=== PATIENT | male | born 1955 | race African-American/Black ===

== ENCOUNTER 2019-10-13 17:49 | Inpatient (IN) | payer MEDICARE, BC ==
[2019-10-13] MEDS ORDERED: ACETAMINOPHEN TAB 500 MG TAB PO STA (18:18)
[2019-10-13] MEDS ORDERED: ONDANSETRON 4 MG/2 ML VIAL IVP STA (18:19)
[2019-10-13] MEDS ORDERED: HYDROmorphone 1 MG/ML 1 ML SYRINGE IVP STA ×3 (18:19→21:06)
--- NOTE | 2019-10-13 18:21 | ED ---
General Adult HPI - General Chief complaint: Nausea/Vomiting/Diarrhea Stated complaint: nausea Time Seen by Provider: 10/13/19 18:09 Source: patient Mode of arrival: ambulatory Limitations: no limitations - History of Present Illness Initial comments: 64-year-old male patient presents to the emergency department today for evaluation of upper abdominal pain and vomiting. Patient states symptoms started last night. States he has had several episodes of diarrhea with this. He denies any hematochezia, melena, hematemesis. Patient states he has been c hilled. He did have fever in triage. Patient denies any pain radiating through to his back. Denies any history of similar symptoms. Denies any history of abdominal surgery. He denies recent travel or sick contacts. Denies any cough, nasal congestion, or sore throat. Patient denies any recent rash, shortness breath, chest pain, numbness, tingling, dizziness, weakness, hematuria, dysuria, urinary urgency, urinary frequency, headache, visual changes, or any other complaints. - Related Data Home Medications Medication Instructions Recorded Confirmed Atenolol [Tenormin] 25 mg PO DAILY 02/02/16 10/13/19 fentaNYL 100MCG/HR PATCH 100 mcg TRANSDERM Q48H 02/02/16 10/13/19 [Duragesic 100Mcg/Hr Patch] oxyCODONE HCL [oxyCODONE HCL (IR)] 30 mg PO Q4H PRN 02/02/16 10/13/19 traMADol HCl [Ultram] 50 mg PO Q6H PRN 02/02/16 10/13/19 Finasteride [Proscar] 5 mg PO DAILY 10/13/19 10/13/19 Hydrochlorothiazide [Hydrodiuril] 25 mg PO DAILY 10/13/19 10/13/19 Sildenafil Citrate 100 mg PO ONCE PRN 10/13/19 10/13/19 Testosterone [Androgel 1% Gel Pump] 2 applic TOPICAL DAILY 10/13/19 10/13/19 Allergies Allergy/AdvReac Type Severity Reaction Status Date / Time shellfish derived [Shellfish] Allergy Rash/Hives Verified 10/13/19 19:59 Review of Systems ROS Statement: Those systems with pertinent positive or pertinent negative responses have been documented in the HPI. ROS Other: All systems not noted in ROS Statement are negative. Past Medical History Past Medical History: Hypertension, Prostate Disorder Additional Past Medical History / Comment(s): lower back pain radiating to rt leg History of Any Multi-Drug Resistant Organisms: None Reported Past Surgical History: Back Surgery, Joint Replacement, Orthopedic Surgery Additional Past Surgical History / Comment(s): walt. knee replacement, walt knee s quan, walt. carpal tunnel. Hx. of having spinal cord stimulator trial approx. 3 years ago Past Anesthesia/Blood Transfusion Reactions: No Reported Reaction Smoking Status: Never smoker Past Alcohol Use History: None Reported Past Drug Use History: None Reported - Past Family History Mother Family Medical History: No Reported History General Exam Limitations: no limitations General appearance: alert, in no apparent distress, other (This is a well- developed, well-nourished adult male patient in no acute distress. Vital signs upon presentation are temperature 101.9F, pulse 122, respirations 26, blood pressure 166/81, pulse ox 96% on room air.) Eye exam: Present: normal appearance, PERRL, EOMI. Absent: scleral icterus, conjunctival injection, periorbital swelling ENT exam: Present: normal exam, normal oropharynx, mucous membranes moist Respiratory exam: Present: normal lung sounds bilaterally. Absent: respiratory distress, wheezes, rales, rhonchi, stridor Cardiovascular Exam: Present: normal rhythm, tachycardia, normal heart sounds. Absent: systolic murmur, diastolic murmur, rubs, gallop, clicks GI/Abdominal exam: Present: soft, tenderness (Right upper quadrant tenderness), normal bowel sounds. Absent: distended, guarding, rebound, rigid Neurological exam: Present: alert, oriented X3, CN II-XII intact Psychiatric exam: Present: normal affect, normal mood Skin exam: Present: warm, dry, intact, normal color. Absent: rash Course Vital Signs 10/13/19 10/13/19 10/13/19 18:05 20:13 21:09 Temperature 101.9 F H 99.2 F Pulse Rate 122 H 103 H 114 H Respiratory 26 H 18 26 H Rate Blood Pressure 166/81 155/85 162/117 O2 Sat by Pulse 96 96 97 Oximetry 10/13/19 21:30 Temperature Pulse Rate 112 H Respiratory 26 H Rate Blood Pressure 157/86 O2 Sat by Pulse 96 Oximetry EKG Findings - EKG Comments: EKG Findings:: EKG obtained at 2000 shows sinus tachycardia with a ventricular rate of 103, OK interval 168, QRS duration 90, QT 338, QTC 442. No evidence of ST elevation or depression. Medical Decision Making - Medical Decision Making 64-year-old male patient presented to the emergency department today for evaluation of abdominal pain, fever, vomiting, diarrhea. Physical examination did reveal upper abdominal tenderness. Labs reviewed and did reveal a critical hemoglobin and 19, elevated white blood cell count at 12.5. Lactic acid was elevated at 2.6. Transaminases are normal. Patient was febrile upon arrival 101.1F. CT abdomen and pelvis was obtained and showed evidence for possible partial mechanical small bowel obstruction. There is a large fluid-filled stomach. We did attempt to insert an NG tube, patient pulled the NG tube out. He refused to allow another to be inserted. Patient will be admitted for further evaluation by general surgery. IV fluids, pain medication, nausea medication has been ordered. C. diff is pending. I did discuss findings, results, plan with the patient. He is agreeable. - Lab Data Result diagrams: 10/13/19 18:33 10/13/19 18:33 Lab Results 10/13/19 10/13/19 10/13/19 Range/Units 18:33 18:33 18:33 WBC 12.4 H (3.8-10.6) k/uL RBC 6.39 H (4.30-5.90) m/uL Hgb 19.2 H* (13.0-17.5) gm/dL Hct 57.9 H* (39.0-53.0) % MCV 90.6 (80.0-100.0) fL MCH 30.1 (25.0-35.0) pg MCHC 33.2 (31.0-37.0) g/dL RDW 13.0 (11.5-15.5) % Plt Count 285 (150-450) k/uL Neutrophils % 88 % Lymphocytes % 4 % Monocytes % 4 % Eosinophils % 2 % Basophils % 2 % Neutrophils # 10.9 H (1.3-7.7) k/uL Lymphocytes # 0.5 L (1.0-4.8) k/uL Monocytes # 0.5 (0-1.0) k/uL Eosinophils # 0.2 (0-0.7) k/uL Basophils # 0.2 (0-0.2) k/uL PT (9.0-12.0) sec INR (<1.2) APTT (22.0-30.0) sec Sodium 135 L (137-145) mmol/L Potassium 4.1 (3.5-5.1) mmol/L Chloride 89 L (98-107) mmol/L Carbon Dioxide 32 H (22-30) mmol/L Anion Gap 14 mmol/L BUN 16 (9-20) mg/dL Creatinine 1.18 (0.66-1.25) mg/dL Est GFR (CKD-EPI)AfAm 75 (>60 ml/min/1.73 sqM) Est GFR (CKD-EPI)NonAf 65 (>60 ml/min/1.73 sqM) Glucose 156 H (74-99) mg/dL Plasma Lactic Acid Sanjiv 2.6 H* (0.7-2.0) mmol/L Calcium 10.8 H (8.4-10.2) mg/dL Total Bilirubin 1.0 (0.2-1.3) mg/dL AST 35 (17-59) U/L ALT 28 (21-72) U/L Alkaline Phosphatase 76 (38-126) U/L Total Protein 9.4 H (6.3-8.2) g/dL Albumin 5.4 H (3.5-5.0) g/dL Lipase 261 (23-300) U/L Urine Color Urine Appearance (Clear) Urine pH (5.0-8.0) Ur Specific [place] (1.001-1.035) Urine Protein (Negative) Urine Glucose (UA) (Negative) Urine Ketones (Negative) Urine Blood (Negative) Urine Nitrite (Negative) Urine Bilirubin (Negative) Urine Urobilinogen (<2.0) mg/dL Ur Leukocyte Esterase (Negative) Urine RBC (0-5) /hpf Urine WBC (0-5) /hpf Ur Squamous Epith Cells (0-4) /hpf Urine Mucus (None) /hpf Influenza Type A RNA (Not Detectd) Influenza Type B (PCR) (Not Detectd) 10/13/19 10/13/19 10/13/19 Range/Units 18:33 19:09 20:00 WBC (3.8-10.6) k/uL RBC (4.30-5.90) m/uL Hgb (13.0-17.5) gm/dL Hct (39.0-53.0) % MCV (80.0-100.0) fL MCH (25.0-35.0) pg MCHC (31.0-37.0) g/dL RDW (11.5-15.5) % Plt Count (150-450) k/uL Neutrophils % % Lymphocytes % % Monocytes % % Eosinophils % % Basophils % % Neutrophils # (1.3-7.7) k/uL Lymphocytes # (1.0-4.8) k/uL Monocytes # (0-1.0) k/uL Eosinophils # (0-0.7) k/uL Basophils # (0-0.2) k/uL PT 11.2 (9.0-12.0) sec INR 1.1 (<1.2) APTT 25.3 (22.0-30.0) sec Sodium (137-145) mmol/L Potassium (3.5-5.1) mmol/L Chloride (98-107) mmol/L Carbon Dioxide (22-30) mmol/L Anion Gap mmol/L BUN (9-20) mg/dL Creatinine (0.66-1.25) mg/dL Est GFR (CKD-EPI)AfAm (>60 ml/min/1.73 sqM) Est GFR (CKD-EPI)NonAf (>60 ml/min/1.73 sqM) Glucose (74-99) mg/dL Plasma Lactic Acid Sanjiv (0.7-2.0) mmol/L Calcium (8.4-10.2) mg/dL Total Bilirubin (0.2-1.3) mg/dL AST (17-59) U/L ALT (21-72) U/L Alkaline Phosphatase (38-126) U/L Total Protein (6.3-8.2) g/dL Albumin (3.5-5.0) g/dL Lipase (23-300) U/L Urine Color Yellow Urine Appearance Clear (Clear) Urine pH 8.0 (5.0-8.0) Ur Specific [place] >1.050 H (1.001-1.035) Urine Protein 1+ H (Negative) Urine Glucose (UA) Negative (Negative) Urine Ketones Negative (Negative) Urine Blood Negative (Negative) Urine Nitrite Negative (Negative) Urine Bilirubin Negative (Negative) Urine Urobilinogen <2.0 (<2.0) mg/dL Ur Leukocyte Esterase Negative (Negative) Urine RBC 1 (0-5) /hpf Urine WBC <1 (0-5) /hpf Ur Squamous Epith Cells <1 (0-4) /hpf Urine Mucus Rare H (None) /hpf Influenza Type A RNA Not Detected (Not Detectd) Influenza Type B (PCR) Not Detected (Not Detectd) - Radiology Data Radiology results: report reviewed, image reviewed CT abdomen and pelvis with contrast was obtained. Report is reviewed in its entirety. Impression by Dr. Davis shows dilated fluid-filled small bowel consistent with partial mechanical small bowel obstruction or small bowel ileus. No free air. Mildly dilated gallbladder suggestive of gallbladder dysfunction. Bariatric surgery noted. Sigmoid diverticulosis without divertic ulitis. There is noted a lipoma of the anterior right upper thigh between the deep muscles. Disposition Clinical Impression: Intractable abdominal pain, Vomiting and diarrhea Disposition: ADMITTED IP TO THIS [facility] Condition: Serious Decision to Admit Reason: Admit from EC Decision Date: 10/13/19 Decision Time: 21:42
[2019-10-13] MEDS: SODIUM CHLORIDE 0.9% 500 ML 500 ML IV SCH ×2 (18:33→19:04)
[2019-10-13 18:49] LABS: Basophils # (A) 0.2 k/uL (0-0.2); Basophils % (A) 2 %; Eosinophils # (A) 0.2 k/uL (0-0.7); Eosinophils % (A) 2 %; Lymphocytes # (A) 0.5 k/uL (1.0-4.8); Lymphocytes % (A) 4 %; MCH 30.1 pg (25.0-35.0); MCHC 33.2 g/dL (31.0-37.0); MCV 90.6 fL (80.0-100.0); Mean Platelet Volume 5.6; Monocytes # (A) 0.5 k/uL (0-1.0); Monocytes % (A) 4 %; Neutrophils # (A) 10.9 k/uL (1.3-7.7); Neutrophils % (A) 88 %; Platelet Count 285 k/uL (150-450); RBC 6.39 m/uL (4.30-5.90); WBC 12.4 k/uL (3.8-10.6)
[2019-10-13 18:57] LABS: Albumin 5.4 g/dL (3.5-5.0); Calcium 10.8 mg/dL (8.4-10.2); Potassium 4.1 mmol/L (3.5-5.1); Total Protein 9.4 g/dL (6.3-8.2)
[2019-10-13 18:58] LABS: HCT 57.9 % (39.0-53.0); HGB 19.2 gm/dL (13.0-17.5)
[2019-10-13 19:01] LABS: INR 1.1 (<1.2); Partial Thromboplastin Time 25.3 sec (22.0-30.0); Prothrombin Time 11.2 sec (9.0-12.0)
[2019-10-13] MEDS ORDERED: SODIUM CHLORIDE 0.9% 1,000 ML IV ONE (19:08)
--- NOTE | 2019-10-13 19:44 | CT ---
EXAMINATION TYPE: CT abdomen pelvis w con DATE OF EXAM: 10/13/2019 COMPARISON: None HISTORY: LUQ pain CT DLP: 2043 mGycm Automated exposure control for dose reduction was used. TECHNIQUE: Helical acquisition of images was performed from the lung bases through the pelvis. CONTRAST: Performed without Oral Contrast and with IV Contrast, patient injected with 100 mL of Isovue 300. FINDINGS: Lung bases show minimal subsegmental atelectasis. There is no pleural effusion. Heart size is normal. There is no pericardial effusion. Liver shows no focal defect. There is low attenuation in the gallbladder consistent with gallstones. Gallbladder is large and measures 4.5 cm in diameter. Stomach is large and filled with fluid. Spleen is intact. There is gastric sleeve noted. There is no evidence of pancreatic mass. The bile ducts are not dilated. There is no adrenal mass. There is 2 cm cortical cyst anterior right kidney. There is no hydronephros is. Ureters are not dilated. Delayed images show normal contrast opacification of the collecting syst ems. There is no retroperitoneal adenopathy. Bladder distends smoothly. There is no inguinal hernia. There is no free fluid in the pelvis. There are multiple dilated fluid-filled loops of small bowel in the mid abdomen. These measure up to 3.5 cm. Distal ileum is not dilated. Appendix appears normal. Transition point is not seen. There are numerous diverticula in the sigmoid colon. There is no sign of diverticulitis. There is no mesenteric edema. There is no ascites. There is no sign of free air. IMPRESSION: DILATED FLUID-FILLED SMALL BOWEL CONSISTENT WITH PARTIAL MECHANICAL SMALL BOWEL OBSTRUCTION OR SMALL BOWEL ILEUS. NO FREE AIR. MILDLY DILATED GALLBLADDER SUGGESTIVE OF GALLBLADDER DYSFUNCTION. BARIATRIC SURGERY NOTED. SIGMOID DIVERTICULOSIS WITHOUT DIVERTICULITIS. THERE IS NOTED A LIPOMA OF THE ANTERIOR RIGHT UPPER THIGH BETWEEN THE DEEP MUSCLES
[2019-10-13 20:33] LABS: Appearance,Urine Clear (Clear); Bilirubin,Urine Negative (Negative); Blood,Urine Negative (Negative); Color,Urine Yellow; Glucose,Urine (UA) Negative (Negative); Ketones,Urine Negative (Negative); Leukocyte Esterase,Urine Negative (Negative); Mucus,Urine Rare /hpf; Nitrite,Urine Negative (Negative); Protein,Urine 1+ (Negative); RBC,Urine 1 /hpf (0-5); Squamous Epithelial Cell,Urine <1 /hpf (0-4); Urobilinogen,Urine <2.0 mg/dL (<2.0)
[2019-10-13 20:53] LABS: Specific Gravity,Urine >1.050 (1.001-1.035)
[2019-10-13] MEDS ORDERED: ONDANSETRON 4 MG/2 ML VIAL IVP PRN (21:40)
[2019-10-13] MEDS ORDERED: NALOXONE 0.4 MG/ML 1 ML VIAL IV PRN (21:40)
[2019-10-13] MEDS ORDERED: ACETAMINOPHEN TAB 325 MG TAB PO PRN (22:02)
[2019-10-13] MEDS: SODIUM CHLORIDE 0.9% 1,000 ML IV SCH (22:06)
[2019-10-13 23:30] VITALS: BMI 39.5
[2019-10-14] MEDS ORDERED: ACETAMINOPHEN IV (For NPO) 1,000 MG in EMPTY BAG 1 BAG IVPB ONE
--- NOTE | 2019-10-14 00:19 | XR ---
EXAMINATION TYPE: XR chest 1V DATE OF EXAM: 10/13/2019 COMPARISON: 01/09/2011 HISTORY: Fever TECHNIQUE: Single frontal view of the chest is obtained. FINDINGS: There is poor inspiration. There is some atelectasis at the right lung base. There is elev ated right diaphragm. There is no heart failure. IMPRESSION: Poor inspiration significantly less than last exam. Mild atelectasis right lung base.
[2019-10-14] MEDS: HYDROmorphone 1 MG/ML 1 ML SYRINGE IVP PRN ×7 (00:56→23:56)
[2019-10-14] MEDS ORDERED: ACETAMINOPHEN IV (For NPO) 1,000 MG in EMPTY BAG 1 BAG IVPB PRN (06:00)
[2019-10-14 07:25] LABS: Basophils # (A) 0.3 k/uL (0-0.2); Basophils % (A) 3 %; Eosinophils # (A) 0.1 k/uL (0-0.7); Eosinophils % (A) 1 %; Lymphocytes # (A) 1.5 k/uL (1.0-4.8); Lymphocytes % (A) 16 %; MCH 29.8 pg (25.0-35.0); MCHC 32.8 g/dL (31.0-37.0); Mean Platelet Volume 5.8; Monocytes % (A) 10 %; Neutrophils # (A) 6.5 k/uL (1.3-7.7); Neutrophils % (A) 68 %; Platelet Count 253 k/uL (150-450); RBC 5.17 m/uL (4.30-5.90); RDW 13.1 % (11.5-15.5); WBC 9.5 k/uL (3.8-10.6)
[2019-10-14 07:29] LABS: HGB 15.4 gm/dL (13.0-17.5)
[2019-10-14 07:43] LABS: Albumin 3.6 g/dL (3.5-5.0); Calcium 8.5 mg/dL (8.4-10.2); Potassium 4.2 mmol/L (3.5-5.1); Total Bilirubin 1.1 mg/dL (0.2-1.3); Total Protein 6.4 g/dL (6.3-8.2)
[2019-10-14] MEDS ORDERED: IOPAMIDOL CONTRAST (ORAL USE) VIAL PO PRN (10:00)
--- NOTE | 2019-10-14 10:00 | P.GSCN ---
History of Present Illness Consult date: 10/14/19 Reason for Consult: Small bowel obstruction History of present illness: This is a 64-year-old male who's had complaints of abdominal pain for 48 hours. Patient was worked up in the emergency room found have a distended stomach and small bowel. Patient's had previous LAP-BAND surgery by Dr. Victor over 12 years ago. He's had no significant follow-up over the last 10 years. He denies any nausea or vomiting. He has had no significant weight loss. He states his pain is mainly in the epigastric area. Apparently they attempted NG tube p lacement however this was unsuccessful yesterday. Past Medical History Past Medical History: Hypertension, Prostate Disorder Additional Past Medical History / Comment(s): lower back pain radiating to rt leg History of Any Multi-Drug Resistant Organisms: None Reported Past Surgical History: Back Surgery, Bariatric Surgery, Joint Replacement, Orthopedic Surgery Additional Past Surgical History / Comment(s): walt. knee replacement, walt knee scopes, walt. carpal tunnel. Hx. of having spinal cord stimulator trial approx. 5 years ago, gastric sleeve 10 years ago Past Anesthesia/Blood Transfusion Reactions: No Reported Reaction Past Psychological History: No Psychological Hx Reported Smoking Status: Former smoker Past Alcohol Use History: None Reported Past Drug Use History: None Reported - Past Family History Mother Family Medical History: No Reported History Medications and Allergies Home Medications Medication Instructions Recorded Confirmed Type Atenolol [Tenormin] 25 mg PO DAILY 02/02/16 10/13/19 History fentaNYL 100MCG/HR PATCH 100 mcg TRANSDERM Q48H 02/02/16 10/13/19 History [Duragesic 100Mcg/Hr Patch] oxyCODONE HCL [oxyCODONE HCL (IR)] 30 mg PO Q4H PRN 02/02/16 10/13/19 History traMADol HCl [Ultram] 50 mg PO Q6H PRN 02/02/16 10/13/19 History Finasteride [Proscar] 5 mg PO DAILY 10/13/19 10/13/19 History Hydrochlorothiazide [Hydrodiuril] 25 mg PO DAILY 10/13/19 10/13/19 History Sildenafil Citrate 100 mg PO ONCE PRN 10/13/19 10/13/19 History Testosterone [Androgel 1% Gel Pump] 2 applic TOPICAL DAILY 10/13/19 10/13/19 History Allergies Allergy/AdvReac Type Severity Reaction Status Date / Time shellfish derived [Shellfish] Allergy Rash/Hives Verified 10/13/19 19:59 Surgical - Exam Vital Signs Temp Pulse Resp BP Pulse Ox 101.9 F H 122 H 26 H 166/81 96 10/13/19 18:05 10/13/19 18:05 10/13/19 18:05 10/13/19 18:05 10/13/19 18:05 - General well developed, well nourished, no distress - Eyes PERRL - ENT normal pinna - Neck no masses - Respiratory normal expansion - Cardiovascular Rhythm: regular - Abdomen Mild epigastric tenderness Abdomen: soft Results - Labs 10/14/19 06:49 10/14/19 06:54 Abnormal Lab Results - Last 24 Hours (Table) 10/13/19 10/13/19 10/13/19 Range/Units 18:33 18:33 18:33 WBC 12.4 H (3.8-10.6) k/uL RBC 6.39 H (4.30-5.90) m/uL Hgb 19.2 H* (13.0-17.5) gm/dL Hct 57.9 H* (39.0-53.0) % Neutrophils # 10.9 H (1.3-7.7) k/uL Lymphocytes # 0.5 L (1.0-4.8) k/uL Basophils # (0-0.2) k/uL Sodium 135 L (137-145) mmol/L Chloride 89 L (98-107) mmol/L Carbon Dioxide 32 H (22-30) mmol/L Glucose 156 H (74-99) mg/dL Plasma Lactic Acid Sanjiv 2.6 H* (0.7-2.0) mmol/L Calcium 10.8 H (8.4-10.2) mg/dL Total Protein 9.4 H (6.3-8.2) g/dL Albumin 5.4 H (3.5-5.0) g/dL Ur Specific [place] (1.001-1.035) Urine Protein (Negative) Urine Mucus (None) /hpf 10/13/19 10/13/19 10/14/19 Range/Units 20:00 22:23 06:49 WBC (3.8-10.6) k/uL RBC (4.30-5.90) m/uL Hgb (13.0-17.5) gm/dL Hct (39.0-53.0) % Neutrophils # (1.3-7.7) k/uL Lymphocytes # (1.0-4.8) k/uL Basophils # 0.3 H (0-0.2) k/uL Sodium (137-145) mmol/L Chloride (98-107) mmol/L Carbon Dioxide (22-30) mmol/L Glucose (74-99) mg/dL Plasma Lactic Acid Sanjiv 2.2 H* (0.7-2.0) mmol/L Calcium (8.4-10.2) mg/dL Total Protein (6.3-8.2) g/dL Albumin (3.5-5.0) g/dL Ur Specific [place] >1.050 H (1.001-1.035) Urine Protein 1+ H (Negative) Urine Mucus Rare H (None) /hpf 10/14/19 Range/Units 06:54 WBC (3.8-10.6) k/uL RBC (4.30-5.90) m/uL Hgb (13.0-17.5) gm/dL Hct (39.0-53.0) % Neutrophils # (1.3-7.7) k/uL Lymphocytes # (1.0-4.8) k/uL Basophils # (0-0.2) k/uL Sodium 136 L (137-145) mmol/L Chloride (98-107) mmol/L Carbon Dioxide (22-30) mmol/L Glucose (74-99) mg/dL Plasma Lactic Acid Sanjiv (0.7-2.0) mmol/L Calcium (8.4-10.2) mg/dL Total Protein (6.3-8.2) g/dL Albumin (3.5-5.0) g/dL Ur Specific [place] (1.001-1.035) Urine Protein (Negative) Urine Mucus (None) /hpf Diabetes panel 10/13/19 10/14/19 Range/Units 18:33 06:54 Sodium 135 L 136 L (137-145) mmol/L Potassium 4.1 4.2 (3.5-5.1) mmol/L Chloride 89 L 102 (98-107) mmol/L Carbon Dioxide 32 H 26 (22-30) mmol/L BUN 16 14 (9-20) mg/dL Creatinine 1.18 1.10 (0.66-1.25) mg/dL Glucose 156 H 97 (74-99) mg/dL Calcium 10.8 H 8.5 (8.4-10.2) mg/dL AST 35 31 (17-59) U/L ALT 28 27 (21-72) U/L Alkaline Phosphatase 76 44 (38-126) U/L Total Protein 9.4 H 6.4 (6.3-8.2) g/dL Albumin 5.4 H 3.6 (3.5-5.0) g/dL Calcium panel 10/13/19 10/14/19 Range/Units 18:33 06:54 Calcium 10.8 H 8.5 (8.4-10.2) mg/dL Albumin 5.4 H 3.6 (3.5-5.0) g/dL Pituitary panel 10/13/19 10/14/19 Range/Units 18:33 06:54 Sodium 135 L 136 L (137-145) mmol/L Potassium 4.1 4.2 (3.5-5.1) mmol/L Chloride 89 L 102 (98-107) mmol/L Carbon Dioxide 32 H 26 (22-30) mmol/L BUN 16 14 (9-20) mg/dL Creatinine 1.18 1.10 (0.66-1.25) mg/dL Glucose 156 H 97 (74-99) mg/dL Calcium 10.8 H 8.5 (8.4-10.2) mg/dL Adrenal panel 10/13/19 10/14/19 Range/Units 18:33 06:54 Sodium 135 L 136 L (137-145) mmol/L Potassium 4.1 4.2 (3.5-5.1) mmol/L Chloride 89 L 102 (98-107) mmol/L Carbon Dioxide 32 H 26 (22-30) mmol/L BUN 16 14 (9-20) mg/dL Creatinine 1.18 1.10 (0.66-1.25) mg/dL Glucose 156 H 97 (74-99) mg/dL Calcium 10.8 H 8.5 (8.4-10.2) mg/dL Total Bilirubin 1.0 1.1 (0.2-1.3) mg/dL AST 35 31 (17-59) U/L ALT 28 27 (21-72) U/L Alkaline Phosphatase 76 44 (38-126) U/L Total Protein 9.4 H 6.4 (6.3-8.2) g/dL Albumin 5.4 H 3.6 (3.5-5.0) g/dL - Imaging CT scan - abdomen: report reviewed (Distended stomach, lap band, distended small bowel suggestive of ileus without transition zone) Assessment and Plan Assessment: Abdominal pain, nausea. Patient most likely has a partial small bowel obstruction versus ileus. We will repeat his CAT scan with oral contrast in the a.m.
[2019-10-14] MEDS: ATENOLOL 25 MG TAB PO SCH (10:32)
[2019-10-14] MEDS: HYDROCHLOROTHIAZIDE 25 MG TAB PO SCH (10:32)
[2019-10-14] MEDS: TESTOSTERONE TOPICAL SCH (10:33)
[2019-10-14] MEDS: SODIUM CHLORIDE 0.9% 1,000 ML IV SCH (13:21)
--- NOTE | 2019-10-14 17:25 | P.HPIM ---
History of Present Illness H&P Date: 10/14/19 Chief Complaint: abdominal pain with nausea and vomiting Mr. Arriaga is a 64-year-old male with a past medical history of hypertension, chronic low back pain with osteoarthritis,Jeffrey disorder coming in with a chief complaint of abdominal pain,nausea and vomiting.patient states he started to have abdominal pain since early Tuesday morning, later on was nauseous and threw up couple of times. Patient denied having any hematemesis or hematochezia. Abdominal pain is diffuse in nature, spasmodic type.patient has history of LAP-BAND surgery done by Dr. Victor 12 years back. Patient denied having any similar complaints in the past. Patient denies having any fevers chills or rigors. No chest pain or palpitations. No cough or difficulty in breathing. No orthopnea or PND. No dysuria or hematuria. No headaches, blurring of vision, slurring of speech. No weakness of his extremities. He has history of chronic low back pain and has a spinal stimulator in place. Review of Systems REVIEW OF SYSTEMS: PSYCH: Normal psychiatric exam NEURO:No c/o weakness of the extremties, No facial droop, No speech abnormalities. VASCULAR: Peripheral nervous system within the normal limits no edema HEMATOLOGIC: No history of easy bleeding and bruising . No recent infections . RESPIRATORY: No cough, No SOB, No chest discomfort. IMMUNE: No infections INTEGUMENT: no rashes OPHTHALMOLOGIC: No blurry vision and no eye discharge : No dysuria or hematuria OPERATIONS LIEUTENANT: No bleeding PV CARDIAC: No chest pain , shortness of breath , paroxysmal nocturnal dyspnea MUSCULOSKELETAL : No Aches or pains in the joints or muscles. GI: as per HPI Past Medical History Past Medical History: Hypertension, Prostate Disorder Additional Past Medical History / Comment(s): lower back pain radiating to rt leg History of Any Multi-Drug Resistant Organisms: None Reported Past Surgical History: Back Surgery, Bariatric Surgery, Joint Replacement, Orthopedic Surgery Additional Past Surgical History / Comment(s): walt. knee replacement, walt knee scopes, walt. carpal tunnel. Hx. of having spinal cord stimulator trial approx. 5 years ago, gastric sleeve 10 years ago Past Anesthesia/Blood Transfusion Reactions: No Reported Reaction Past Psychological History: No Psychological Hx Reported Smoking Status: Former smoker Past Alcohol Use History: None Reported Past Drug Use History: None Reported - Past Family History Mother Family Medical History: No Reported History Medications and Allergies Home Medications Medication Instructions Recorded Confirmed Type Atenolol [Tenormin] 25 mg PO DAILY 02/02/16 10/13/19 History fentaNYL 100MCG/HR PATCH 100 mcg TRANSDERM Q48H 02/02/16 10/13/19 History [Duragesic 100Mcg/Hr Patch] oxyCODONE HCL [oxyCODONE HCL (IR)] 30 mg PO Q4H PRN 02/02/16 10/13/19 History traMADol HCl [Ultram] 50 mg PO Q6H PRN 02/02/16 10/13/19 History Finasteride [Proscar] 5 mg PO DAILY 10/13/19 10/13/19 History Hydrochlorothiazide [Hydrodiuril] 25 mg PO DAILY 10/13/19 10/13/19 History Sildenafil Citrate 100 mg PO ONCE PRN 10/13/19 10/13/19 History Testosterone [Androgel 1% Gel Pump] 2 applic TOPICAL DAILY 10/13/19 10/13/19 History Allergies Allergy/AdvReac Type Severity Reaction Status Date / Time shellfish derived [Shellfish] Allergy Rash/Hives Verified 10/13/19 19:59 Physical Exam Vitals: Vital Signs Temp Pulse Pulse Resp BP BP Pulse Ox 10/14/19 13:39 97.9 F 86 16 143/76 96 10/14/19 07:00 98.4 F 98 14 126/69 96 10/14/19 03:54 16 10/14/19 02:35 98.5 F 92 16 169/91 95 10/14/19 00:39 16 10/13/19 22:44 100.5 F H 100 16 172/90 93 L 10/13/19 22:38 100 20 10/13/19 21:59 99.0 F 96 20 151/65 99 10/13/19 21:30 112 H 26 H 157/86 96 10/13/19 21:09 114 H 26 H 162/117 97 10/13/19 20:13 99.2 F 103 H 18 155/85 96 10/13/19 18:05 101.9 F H 122 H 26 H 166/81 96 Intake and Output 10/14/19 10/14/19 10/14/19 06:59 14:59 22:59 Intake Total 750 Balance 750 Intake: Intake, IV Titration 750 Amount Sodium Chloride 0.9% 1, 750 000 ml @ 75 mls/hr IV . [id number] [facility] Rx#:[id number] Oral 0 Other: Voiding Method Toilet # Voids 4 # Bowel Movements 3 GEN. APPEARANCE: alert, in no apparent distress HEENT : no pallor. No icterus. No JVD. No lymphadenopathy. No thyromegaly. RESPIRATORY EXAM: bilateral breath sounds are positive. No wheeze or crackles. CARDIOVASCULAR EXAM: as an S2 heard. GI/ABDOMINAL EXAM:abdomen is soft. Bowel sounds could not be appreciated. No tenderness guarding or rigidity. EXTREMITIES EXAM: no pedal edema. NEUROLOGICAL EXAM: alert, oriented X3, no focal neurological deficits Results CBC & Chem 7: 10/14/19 06:49 10/14/19 06:54 Labs: Abnormal Lab Results - Last 24 Hours (Table) 10/13/19 10/13/19 10/13/19 Range/Units 18:33 18:33 18:33 WBC 12.4 H (3.8-10.6) k/uL RBC 6.39 H (4.30-5.90) m/uL Hgb 19.2 H* (13.0-17.5) gm/dL Hct 57.9 H* (39.0-53.0) % Neutrophils # 10.9 H (1.3-7.7) k/uL Lymphocytes # 0.5 L (1.0-4.8) k/uL Basophils # (0-0.2) k/uL Sodium 135 L (137-145) mmol/L Chloride 89 L (98-107) mmol/L Carbon Dioxide 32 H (22-30) mmol/L Glucose 156 H (74-99) mg/dL Plasma Lactic Acid Sanjiv 2.6 H* (0.7-2.0) mmol/L Calcium 10.8 H (8.4-10.2) mg/dL Total Protein 9.4 H (6.3-8.2) g/dL Albumin 5.4 H (3.5-5.0) g/dL Ur Specific [place] (1.001-1.035) Urine Protein (Negative) Urine Mucus (None) /hpf 10/13/19 10/13/19 10/14/19 Range/Units 20:00 22:23 06:49 WBC (3.8-10.6) k/uL RBC (4.30-5.90) m/uL Hgb (13.0-17.5) gm/dL Hct (39.0-53.0) % Neutrophils # (1.3-7.7) k/uL Lymphocytes # (1.0-4.8) k/uL Basophils # 0.3 H (0-0.2) k/uL Sodium (137-145) mmol/L Chloride (98-107) mmol/L Carbon Dioxide (22-30) mmol/L Glucose (74-99) mg/dL Plasma Lactic Acid Sanjiv 2.2 H* (0.7-2.0) mmol/L Calcium (8.4-10.2) mg/dL Total Protein (6.3-8.2) g/dL Albumin (3.5-5.0) g/dL Ur Specific [place] >1.050 H (1.001-1.035) Urine Protein 1+ H (Negative) Urine Mucus Rare H (None) /hpf 10/14/19 Range/Units 06:54 WBC (3.8-10.6) k/uL RBC (4.30-5.90) m/uL Hgb (13.0-17.5) gm/dL Hct (39.0-53.0) % Neutrophils # (1.3-7.7) k/uL Lymphocytes # (1.0-4.8) k/uL Basophils # (0-0.2) k/uL Sodium 136 L (137-145) mmol/L Chloride (98-107) mmol/L Carbon Dioxide (22-30) mmol/L Glucose (74-99) mg/dL Plasma Lactic Acid Sanjiv (0.7-2.0) mmol/L Calcium (8.4-10.2) mg/dL Total Protein (6.3-8.2) g/dL Albumin (3.5-5.0) g/dL Ur Specific [place] (1.001-1.035) Urine Protein (Negative) Urine Mucus (None) /hpf Thrombosis Risk Factor Assmnt - Choose All That Apply Each Factor Represents 1 point: Obesity (BMI >25) Each Risk Factor Represents 2 Points: Age 61-74 years Thrombosis Risk Factor Assessment Total Risk Factor Score: 3 Thrombosis Risk Factor Assessment Level: Moderate Risk Assessment and Plan Assessment: ASSESSMENT Abdominal pain with nausea and vomiting Hypertension Prostrated disorder Chronic low back pain History of LAP-BAND surgery History of spinal cord stimulator Obesity with BMI of 39.5 lactic acidosis PLAN: Patient had a CAT scan of the abdomen and pelvis showing dilated fluid- filled small bowel consistent with partial mechanical small bowel obstruction all small bowel ileus.Surgery consult has been placed and Dr. Wasserman evaluated the patient and conservative management for now. He is scheduled for a repeat CAT scan of the abdomen and pelvis for tomorrow morning. Continue with nothing by mouth. A trial of NG tube was failure this morning. Patient's blood pressure is within normal limits for now we will continue to monitor. Further recommendations depending on the progress of the patient.
[2019-10-15] MEDS: SODIUM CHLORIDE 0.9% 1,000 ML IV SCH ×2 (00:14→16:20)
[2019-10-15] MEDS: HYDROmorphone 1 MG/ML 1 ML SYRINGE IVP PRN ×7 (03:18→22:10)
[2019-10-15] MEDS: hydrALAZINE HCL 20 MG/ML 1 ML VIAL IVP PRN ×2 (08:38→17:48)
[2019-10-15] MEDS: ATENOLOL 25 MG TAB PO SCH (08:47)
[2019-10-15] MEDS: HYDROCHLOROTHIAZIDE 25 MG TAB PO SCH (08:48)
[2019-10-15] MEDS: TESTOSTERONE TOPICAL SCH (08:49)
[2019-10-15] MEDS ORDERED: IOPAMIDOL CONTRAST (ORAL USE) VIAL PO PRN (10:16)
--- NOTE | 2019-10-15 12:25 | CT ---
EXAMINATION TYPE: CT abdomen pelvis wo con DATE OF EXAM: 10/15/2019 COMPARISON: 10/13/2019 HISTORY: Continued abdominal pain CT DLP: 1316.4 mGycm Automated exposure control for dose reduction was used. TECHNIQUE: Helical acquisition of images was performed from the lung bases through the pelvis withou t intravenous contrast but with oral contrast per protocol. FINDINGS: LUNG BASES: Minimal bibasilar subsegmental atelectasis. Oral contrast remains in the distal esophagus that could relate to delayed propulsion or gastroesophageal reflux. Gastric lap band is seen at the distal gastroesophageal junction. LIVER/GB: There are probable cholesterol containing gallstones with lucency present. PANCREAS: No significant abnormality is seen. SPLEEN: No splenomegaly ADRENALS: No significant abnormality is seen. KIDNEYS: Unremarkable unenhanced morphology. No gross evidence of hydronephrosis. 2 small to accurate ly characterize left lower pole renal lesion. FREE AIR: No free air is visualized ADENOPATHY: No greater than 1 cm short axis lymph node in the abdomen or pelvis. OSSEOUS STRUCTURES: Moderate, most changes of the visualized thoracolumbar spine most pronounced at L4-L5 and L5-S1 with grade 1 anterolisthesis at L4-L5 secondary to bilateral pars interarticularis de fects. BOWEL: Contrast extends throughout the small bowel into the large bowel to the level of the sigmoid colon. No dilated large or small bowel. No evidence of obstruction. There is diffuse long segment mil d narrowing of the sigmoid colon, partially related to incomplete distention but also in the basis of chronic diverticulosis. Very subtle inflammatory fat stranding on image 62 may relate to a component of acute diverticulitis (mild and uncomplicated). No pericolonic fluid collection. No pneumoperitone um. OTHER: Previously seen right upper thigh lipomatous lesion. IMPRESSION: 1. DECREASED CALIBER OF THE SMALL BOWEL IN COMPARISON TO THE PRIOR. SMALL BOWEL ILEUS OR EARLY OBSTRU CTION IS NO LONGER SEEN WITH CONTRAST EXTENDING INTO THE DISTAL COLON. 2. LONG SEGMENT THICKENING OF THE SIGMOID COLON APPEARS NEW FROM THE PRIOR WITH VERY SUBTLE PERICOLON IC FAT STRANDING AND NUMEROUS SIGMOID DIVERTICULA. EARLY ACUTE UNCOMPLICATED DIVERTICULITIS. 3. CHOLESTEROL CONTAINING GALLSTONES.
--- NOTE | 2019-10-15 12:29 | P.PN ---
<Lisy Matt Mike - Last Filed: 10/15/19 12:28> Subjective Progress Note Date: 10/15/19 CHIEF COMPLAINT: Small bowel obstruction HISTORY OF PRESENT ILLNESS: Patient seen and examined this morning at the bedside. Repeat CT abdomen and pelvis with oral contrast was ordered this m orning by Dr. Wasserman. Patient has finished his first contrast. He reports increased abdominal pain near the umbilicus after drinking contrast. He denies nausea or vomiting. He is passing flatus and having bowel movements. Vital signs are stable. He is afebrile. PHYSICAL EXAM: VITAL SIGNS: Reviewed. GENERAL: Well-developed in no acute distress. HEENT: No sclera icterus. Extraocular movements grossly intact. Moist buccal mucosa. Head is atraumatic, normocephalic. ABDOMEN: Obese. Soft. Pain with palpation near umbilicus. Positive bowel sounds. No peritoneal signs. NEUROLOGIC: Alert and oriented. Cranial nerves II through XII grossly intact. ASSESSMENT: 1. Abdominal pain 2. Partial small bowel obstruction versus ileus, CT reveals distended stomach and distended small bowel 3. History of gastric banding PLAN: -Dr. Wasserman ordered CT abdomen pelvis with oral contrast. Await results -NPO. Continue IV fluids -Pain control per medicine team -Patient requesting to be switched to Dr. Kaplan service as he performed his lap band. Will switch consult to Dr. Kaplan Nurse practitioner note has been reviewed by physician. Signing provider agrees with the documented findings, assessment, and plan of care. Objective - Vital Signs Vital signs: Vital Signs Temp 98.8 F 10/15/19 07:00 Pulse 93 10/15/19 07:00 Resp 14 10/15/19 07:00 BP 163/83 10/15/19 07:00 Pulse Ox 97 10/15/19 07:00 Intake & Output 10/14/19 10/15/19 10/15/19 18:59 06:59 18:59 Intake Total 750 900 Balance 750 900 Intake: Intake, IV Titration 750 900 Amount Sodium Chloride 0.9% 1, 750 900 000 ml @ 75 mls/hr IV . [id number] [facility] Rx#:[id number] Oral 0 Other: Voiding Method Toilet # Voids 1 - Labs CBC & Chem 7: 10/14/19 06:49 10/14/19 06:54 Labs: Microbiology - Last 24 Hours (Table) 10/13/19 18:33 Blood Culture - Preliminary Blood No Growth after 24 hours <José Kaplan - Last Filed: 10/15/19 17:04> Subjective As above. Patient with ongoing abdominal pain. A CAT scan was reviewed. Inflammatory changes around sigmoid colon very subtle. Not completely convinced at this point that his symptoms are related to diverticulitis. Mild enhancement of the gastric band site. Will proceed with upper endoscopy to rule out erosion at this time. Continue antibiotics for now. We'll follow with you. Objective - Vital Signs Vital signs: Vital Signs Temp 98.1 F 10/15/19 15:00 Pulse 95 10/15/19 15:00 Resp 16 10/15/19 15:00 BP 160/79 10/15/19 15:00 Pulse Ox 97 10/15/19 15:00 Intake & Output 10/14/19 10/15/19 10/15/19 18:59 06:59 18:59 Intake Total 750 900 600 Balance 750 900 600 Intake: Intake, IV Titration 750 900 600 Amount Sodium Chloride 0.9% 1, 750 900 600 000 ml @ 75 mls/hr IV . [id number] [facility] Rx#:[id number] Oral 0 Other: Voiding Method Toilet # Voids 1 3 - Labs CBC & Chem 7: 10/14/19 06:49 10/14/19 06:54 Labs: Microbiology - Last 24 Hours (Table) 10/13/19 18:33 Blood Culture - Preliminary Blood No Growth after 24 hours
--- NOTE | 2019-10-15 15:25 | P.PN ---
Subjective Progress Note Date: 10/15/19 Principal diagnosis: Partial small bowel obstruction versus ileus Mr. Arriaga is a 64-year-old male with a past medical history of hypertension, chronic low back pain with osteoarthritis,Jeffrey disorder coming in with a chief complaint of abdominal pain,nausea and vomiting.patient states he started to have abdominal pain since early Tuesday morning, later on was nauseous and th rew up couple of times. Patient denied having any hematemesis or hematochezia. Abdominal pain is diffuse in nature, spasmodic type.patient has history of LAP- BAND surgery done by Dr. Victor 12 years back. Patient had a CAT scan of the abdomen and pelvis showing dilated fluid-filled small bowel consistent with partial mechanical small bowel obstruction all small bowel ileus.Surgery consult has been placed and Dr. Wasserman evaluated the patient and conservative management for now. On 10/15/2019 - patient is sitting up in a chair by the bedside. He still complains of ongoing diffuse abdominal pain. Patient had a bowel movement after getting the contrast this morning. He has been passing flatus. He denies having any nausea or vomiting. He complains of low back pain, that is chronic i n nature. Patient denies having any chest pain or palpitations. No dysuria or hematuria. No fevers chills or rigors. Patient had a repeat CAT scan of the abdomen and pelvis this morning showing d ecreased caliber of the small intestine in comparison to prior small bowel ileus or early obstruction is no longer seen, low segment thickening of the sigmoid colon that appears new from prior with fairly subtle pericolonic fat stranding and numerous sigmoid diverticula. Early acute uncomplicated diverticulitis. Active Medications Acetaminophen (Tylenol Tab) 650 mg PO Q6HR PRN PRN Reason: Fever and/ or Pain Atenolol (Tenormin) 25 mg PO DAILY [facility] Last Admin: 10/15/19 08:47 Dose: 25 mg Documented by: Fentanyl (Duragesic 50mcg/Hr Patch) 2 patch TRANSDERM Q48H [facility] Last Admin: 10/14/19 00:44 Dose: 2 patch Documented by: Hydralazine HCl (Apresoline) 10 mg IVP Q6HR PRN PRN Reason: Blood Pressure - High Last Admin: 10/15/19 08:38 Dose: 10 mg Documented by: Hydrochlorothiazide (Hydrodiuril) 25 mg PO DAILY [facility] Last Admin: 10/15/19 08:48 Dose: Not Given Documented by: Hydromorphone HCl (Dilaudid) 1 mg IVP Q3HR PRN PRN Reason: Severe Pain Last Admin: 10/15/19 14:35 Dose: 1 mg Documented by: Sodium Chloride (Saline 0.9%) 1,000 mls @ 75 mls/hr IV .[id number] [facility] Last Admin: 10/15/19 00:14 Dose: 75 mls/hr Documented by: Acetaminophen 1,000 mg/ IV (Solution) 100 mls @ 400 mls/hr IVPB ONCE PRN PRN Reason: Fever Last Admin: 10/15/19 13:34 Dose: 400 mls/hr Documented by: Naloxone HCl (Narcan) 0.2 mg IV Q2M PRN PRN Reason: Opioid Reversal Non-Formulary Medication (Testosterone [Androgel 1% Gel Pump]) 2 applic TOPICAL DAILY [facility] Last Admin: 10/15/19 08:49 Dose: Not Given Documented by: Ondansetron HCl (Zofran) 4 mg IVP Q8HR PRN PRN Reason: Nausea And Vomiting Objective - Vital Signs Vital signs: Vital Signs Temp 98.8 F 10/15/19 07:00 Pulse 93 10/15/19 07:00 Resp 14 10/15/19 07:00 BP 163/83 10/15/19 07:00 Pulse Ox 97 10/15/19 07:00 Intake & Output 10/14/19 10/15/19 10/15/19 18:59 06:59 18:59 Intake Total 750 900 600 Balance 750 900 600 Intake: Intake, IV Titration 750 900 600 Amount Sodium Chloride 0.9% 1, 750 900 600 000 ml @ 75 mls/hr IV . [id number] [facility] Rx#:[id number] Oral 0 Other: Voiding Method Toilet # Voids 1 3 - Exam GEN. APPEARANCE: alert, in no apparent distress HEENT : no pallor. No icterus. No JVD. No lymphadenopathy. No thyromegaly. RESPIRATORY EXAM: bilateral breath sounds are positive. No wheeze or crackles. CARDIOVASCULAR EXAM: as an S2 heard. GI/ABDOMINAL EXAM:abdomen is soft. Bowel sounds could not be appreciated. No tenderness guarding or rigidity. EXTREMITIES EXAM: no pedal edema. NEUROLOGICAL EXAM: alert, oriented X3, no focal neurological deficits - Labs CBC & Chem 7: 10/14/19 06:49 10/14/19 06:54 Labs: Microbiology - Last 24 Hours (Table) 10/13/19 18:33 Blood Culture - Preliminary Blood No Growth after 24 hours Assessment and Plan Assessment: ASSESSMENT Abdominal pain with nausea and vomiting Hypertension Prostrated disorder Chronic low back pain History of LAP-BAND surgery History of spinal cord stimulator Obesity with BMI of 39.5 lactic acidosis PLAN: As the patient's repeat CAT scan from this morning was showing early signs of diverticulitis and due to ongoing diffuse abdominal pain, will start the patient on ciprofloxacin and Flagyl. Patient is still kept nothing by mouth until cleared by surgery. Continue with IV fluids. The treatment plan was discussed in detail with the patient and his at bedside today. Further recommendations depending upon the progress of the patient
[2019-10-15] MEDS ORDERED: LEVOFLOXACIN 750MG-D5W PMX 750 MG in DEXTROSE/WATER 1 150ML.BAG IVPB SCH (16:00)
[2019-10-15] MEDS: metroNIDAZOLE-NS PMX 500 MG in SALINE 1 100ML.BAG IVPB SCH ×2 (17:46→23:22)
[2019-10-15] MEDS: MELATONIN 3 MG TABLET PO PRN (23:14)
[2019-10-16] MEDS: HYDROmorphone 1 MG/ML 1 ML SYRINGE IVP PRN ×7 (01:18→22:16)
[2019-10-16] MEDS: SODIUM CHLORIDE 0.9% 1,000 ML IV SCH ×2 (03:11→16:05)
[2019-10-16] MEDS: metroNIDAZOLE-NS PMX 500 MG in SALINE 1 100ML.BAG IVPB SCH ×3 (07:22→23:00)
[2019-10-16] MEDS: ATENOLOL 25 MG TAB PO SCH (07:24)
[2019-10-16] MEDS: TESTOSTERONE TOPICAL SCH (07:24)
[2019-10-16] MEDS: HYDROCHLOROTHIAZIDE 25 MG TAB PO SCH (07:24)
[2019-10-16 07:34] LABS: Calcium 8.6 mg/dL (8.4-10.2); Potassium 4.1 mmol/L (3.5-5.1)
[2019-10-16 08:04] LABS: Basophils # (A) 0.2 k/uL (0-0.2); Basophils % (A) 1 %; Eosinophils # (A) 0.2 k/uL (0-0.7); Eosinophils % (A) 1 %; HCT 46.9 % (39.0-53.0); HGB 15.8 gm/dL (13.0-17.5); Lymphocytes # (A) 2.1 k/uL (1.0-4.8); Lymphocytes % (A) 18 %; MCH 30.3 pg (25.0-35.0); MCHC 33.6 g/dL (31.0-37.0); MCV 90.3 fL (80.0-100.0); Mean Platelet Volume 5.8; Monocytes % (A) 9 %; Neutrophils # (A) 7.7 k/uL (1.3-7.7); Neutrophils % (A) 68 %; Platelet Count 259 k/uL (150-450); RDW 13.1 % (11.5-15.5); WBC 11.3 k/uL (3.8-10.6)
[2019-10-16] MEDS ORDERED: traMADol 50 MG TAB PO PRN (11:34)
[2019-10-16] MEDS ORDERED: PROPOFOL 10 MG/ML 20 ML VIAL IV ONE (12:54)
[2019-10-16] MEDS ORDERED: LACTATED RINGERS 1,000 ML IV ONE (12:54)
[2019-10-16] MEDS ORDERED: MIDAZOLAM 2 MG/2 ML VIAL ONE (12:54)
[2019-10-16] MEDS ORDERED: fentaNYL (PF) 50 MCG/ML 2 ML AMP ONE (12:54)
--- NOTE | 2019-10-16 13:15 | P.PCN ---
Date of Procedure: 10/16/19 Procedure(s) Performed: Preoperative Dx: Abdominal pain Postoperative Dx: Duodenitis with superficial erosions, gastritis with superficial erosions Procedure: EGD with Bx Anesthesia: Sedation Endoscopist: Dr. Kaplan Specimens: Duodenum, antrum Endoscopic Procedure: The patient was on the endoscopy table in the left decubitus position. The Olympus gastroscope was inserted into the oropharynx and passed under direct visualization to the region of the third portion of the duodenum. From that point the scope was slowly withdrawn inspecting all surfaces carefully. There was duodenitis present primarily in the first and second portion of the duodenum. There was superficial erosions with duodenitis present. A biopsy of the duodenum took place. The pylorus was widely patent. The stomach was inspected. There was inflammatory changes seen in the antrum and body of the stomach. Biopsies took place. Retroflexion revealed a normal band plication. No evidence of erosion or prolapse were seen. The gastric pouch appeared normal. The patient's esophagus was likewise normal. The patient was then taken to the recovery room in stable condition per anesthesia guidelines. Recommendations: Await biopsy results. Continue antiacids.
--- NOTE | 2019-10-16 15:23 | P.PN ---
Subjective 64-year-old male with a past medical history of hypertension, chronic low back pain with osteoarthritis,Jeffrey disorder coming in with a chief complaint of abdominal pain,nausea and vomiting.patient states he started to have abdominal pain since early Tuesday morning, later on was nauseous and threw up couple of times. Patient denied having any hematemesis or hematochezia. Abdominal pain is diffuse in nature, spasmodic type.patient has history of LAP-BAND surgery done by Dr. Victor 12 years back. Patient had a CAT scan of the abdomen and pelvis showing dilated fluid-filled small bowel consistent with partial mechanical small bowel obstruction all small bowel ileus.Surgery consult has been placed and Dr. Wasserman evaluated the patient and conservative management for now. On 10/15/2019 - patient is sitting up in a chair by the bedside. He still complains of ongoing diffuse abdominal pain. Patient had a bowel movement after getting the contrast this morning. He has been passing flatus. He denies having any nausea or vomiting. He complains of low back pain, that is chronic in nature. Patient denies having any chest pain or palpitations. No dysuria or hematuria. No fevers chills or rigors. Patient had a repeat CAT scan of the abdomen and pelvis this morning showing decreased caliber of the small intestine in comparison to prior small bowel ileus or early obstruction is no longer seen, low segment thickening of the sigmoid colon that appears new from prior with fairly subtle pericolonic fat stranding and numerous sigmoid diverticula. Early acute uncomplicated diverticulitis. 10/16/2019 Patient is being treated for diverticulitis although the amount of inflammation that these can see on the CAT scan doesn't appear to explain his pain because of which neurosurgery is planning on endoscopy. Patient does have incidental finding of gallstones which doesn't appear to be contributing to his pain. Patient is on Dilaudid and fentanyl., Patient is being started on tramadol. Still complaining of abdominal pain which she says is not as bad as before. Patient is on levofloxacin and metronidazole Constitutional: Denied any fatigue denied any fever. Cardio vascular: denied any chest pain, palpitations Gastrointestinal denied any nausea vomiting Pulmonary: Denied any shortness of breath cough Neurologic denied any new focal deficits All inpatient medications were reviewed and appropriate changes in these medications as dictated in the interval history and assessment and plan. Objective - Vital Signs Vital signs: Vital Signs Temp 98.5 F 11/19/19 14:36 Pulse 53 L 10/16/19 14:36 Resp 16 10/16/19 14:36 BP 143/66 10/16/19 14:36 Pulse Ox 98 10/16/19 14:36 Intake & Output 10/15/19 10/16/19 10/16/19 18:59 06:59 18:59 Intake Total 600 240 400 Balance 600 240 400 Intake: IV 400 Intake, IV Titration 600 Amount Sodium Chloride 0.9% 1, 600 000 ml @ 75 mls/hr IV . [id number] [facility] Rx#:[id number] Oral 240 Other: Voiding Method Toilet Toilet # Voids 3 1 2 # Bowel Movements 1 - Exam PHYSICAL EXAMINATION: GENERAL: The patient is alert and oriented x3, not in any acute distress. Well developed, well nourished. HEENT: Pupils are round and equally reacting to light. EOMI. No scleral icterus. No conjunctival pallor. Normocephalic, atraumatic. No pharyngeal erythema. No thyromegaly. CARDIOVASCULAR: S1 and S2 present. No murmurs, rubs, or gallops. PULMONARY: Chest is clear to auscultation, no wheezing or crackles. ABDOMEN: Soft, multiple abdominal scars from his previous surgeries, mild subj ective tenderness in bilateral lower quadrants MUSCULOSKELETAL: No joint swelling or deformity. EXTREMITIES: No cyanosis, clubbing, or pedal edema. NEUROLOGICAL: Gross neurological examination did not reveal any focal deficits. SKIN: No rashes. - Labs CBC & Chem 7: 10/16/19 07:07 10/16/19 07:07 Labs: Abnormal Lab Results - Last 24 Hours (Table) 10/16/19 10/16/19 Range/Units 07:07 07:07 WBC 11.3 H (3.8-10.6) k/uL Sodium 136 L (137-145) mmol/L Glucose 72 L (74-99) mg/dL Microbiology - Last 24 Hours (Table) 10/13/19 18:33 Blood Culture - Preliminary Blood No Growth after 48 hours Assessment and Plan Plan: -Abdominal pain possibility of diverticulitis continue with the levofloxacin and Flagyl, upper GI endoscopy showed some erosive gastritis for which patient is on Protonix and incidental finding of gallstones which doesn't appear to be contributing to his symptoms -History of lap band surgery in the past -Hypertension -Benign prostatic appropriate -Chronic low back pain with a spiral cuts related -Obesity
[2019-10-16] MEDS ORDERED: PANTOPRAZOLE 40 MG/10 ML VIAL IVP ONE (15:30)
[2019-10-16] MEDS ORDERED: LEVOFLOXACIN 750MG-D5W PMX 750 MG in DEXTROSE/WATER 1 150ML.BAG IVPB SCH (18:00)
[2019-10-17] MEDS: MELATONIN 3 MG TABLET PO PRN (01:18)
[2019-10-17] MEDS: HYDROmorphone 1 MG/ML 1 ML SYRINGE IVP PRN ×4 (01:18→07:28)
[2019-10-17] MEDS: SODIUM CHLORIDE 0.9% 1,000 ML IV SCH (05:56)
[2019-10-17 08:22] LABS: HCT 45.1 % (39.0-53.0); HGB 15.3 gm/dL (13.0-17.5); MCH 30.4 pg (25.0-35.0); MCHC 33.9 g/dL (31.0-37.0); MCV 89.7 fL (80.0-100.0); Mean Platelet Volume 6.3; Platelet Count 246 k/uL (150-450); RBC 5.03 m/uL (4.30-5.90); RDW 13.2 % (11.5-15.5)
[2019-10-17 08:24] LABS: Calcium 8.7 mg/dL (8.4-10.2)
[2019-10-17] MEDS: HYDROCHLOROTHIAZIDE 25 MG TAB PO SCH (08:24)
[2019-10-17] MEDS: metroNIDAZOLE-NS PMX 500 MG in SALINE 1 100ML.BAG IVPB SCH (08:24)
[2019-10-17] MEDS: TESTOSTERONE TOPICAL SCH (08:24)
[2019-10-17] MEDS: ATENOLOL 25 MG TAB PO SCH (08:24)
[2019-10-17 08:34] VITALS: BP 148/79; PULSE 59; RESP 16; TEMP 98.5
[2019-10-17] MEDS ORDERED: PANTOPRAZOLE 40 MG/10 ML VIAL IVP SCH (09:00)
--- NOTE | 2019-10-17 11:04 | P.PN ---
<Lisy Matt - Last Filed: 10/17/19 11:00> Subjective Progress Note Date: 10/17/19 CHIEF COMPLAINT: Small bowel obstruction HISTORY OF PRESENT ILLNESS: Patient examined this morning at the bedside. He is status post EGD revealing duodenitis with superficial erosions and gastritis with superficial erosions. He reports his abdominal pain has completely resolved. He denies nausea or vomiting. He is passing flatus. Vital signs are stable. He's afebrile. PHYSICAL EXAM: VITAL SIGNS: Reviewed. GENERAL: Well-developed in no acute distress. HEENT: No sclera icterus. Extraocular movements grossly intact. Moist buccal mucosa. Head is atraumatic, normocephalic. ABDOMEN: Obese. Soft. Nontender. Positive bowel sounds. No peritoneal signs. NEUROLOGIC: Alert and oriented. Cranial nerves II through XII grossly intact. ASSESSMENT: 1. Abdominal pain, status post EGD revealing duodenitis with superficial erosions and gastritis with superficial erosions 2. History of gastric banding PLAN: -Continue diet as tolerated -Continue Protonix -Await biopsy results -Discharge per medicine -Patient to follow up with Dr. Kaplan outpatient Nurse practitioner note has been reviewed by physician. Signing provider agrees with the documented findings, assessment, and plan of care. Objective - Vital Signs Vital signs: Vital Signs Temp 98.5 F 10/17/19 07:17 Pulse 59 L 10/17/19 07:17 Resp 16 10/17/19 07:17 BP 148/79 10/17/19 07:17 Pulse Ox 99 10/17/19 07:17 Intake & Output 10/16/19 10/17/19 10/17/19 18:59 06:59 18:59 Intake Total 400 Balance 400 Intake: IV 400 Other: Voiding Method Toilet Toilet # Voids 2 - Labs CBC & Chem 7: 10/17/19 06:59 10/17/19 06:59 Labs: Abnormal Lab Results - Last 24 Hours (Table) 10/17/19 Range/Units 06:59 Sodium 135 L (137-145) mmol/L Microbiology - Last 24 Hours (Table) 10/13/19 18:33 Blood Culture - Preliminary Blood No Growth after 72 hours <José Kaplan - Last Filed: 10/17/19 12:23> Subjective As above. Patient doing well. Agree with plans for discharge. Outpatient oral antibiotics for suspected mild diverticulitis and outpatient antiacids for duodenitis. Await biopsies. Plan outpatient colonoscopy late November. Patient will call my office to schedule this. Objective - Vital Signs Vital signs: Vital Signs Temp 98.5 F 10/17/19 07:17 Pulse 59 L 10/17/19 07:17 Resp 16 10/17/19 07:17 BP 148/79 10/17/19 07:17 Pulse Ox 99 10/17/19 07:17 Intake & Output 10/16/19 10/17/19 10/17/19 18:59 06:59 18:59 Intake Total 400 Balance 400 Intake: IV 400 Other: Voiding Method Toilet Toilet # Voids 2 - Labs CBC & Chem 7: 10/17/19 06:59 10/17/19 06:59 Labs: Abnormal Lab Results - Last 24 Hours (Table) 10/17/19 Range/Units 06:59 Sodium 135 L (137-145) mmol/L Microbiology - Last 24 Hours (Table) 10/13/19 18:33 Blood Culture - Preliminary Blood No Growth after 72 hours
--- NOTE | 2019-10-17 12:14 | P.DS ---
Providers Date of admission: 10/13/19 21:17 Expected date of discharge: 10/17/19 Attending physician: Holly Webb Consults: 10/13/19 21:40 Consult Physician Routine Consulting Provider: José Kaplan Reason/Comments: Abd pain; Partial mechanical obstruction Do you want consulting provider notified?: Already Contacted Primary care physician: [facility] Course: Final diagnosis -Abdominal pain possibility of diverticulitis, upper GI endoscopy showed some erosive gastritis and duodenitis -History of lap band surgery in the past -Hypertension -Benign prostatic hypertrophy -Chronic low back pain -Obesity Discharge disposition Patient is being discharged in a stable condition with guarded prognosis to home and will follow-up with primary care provider in the outpatient setting upon discharge. Patient will also be following up with surgery Dr. Kaplan in the outpatient setting in 1-2 weeks as discussed. Patient will complete a short course of oral antibiotics in the form of Flagyl and Cipro for the next 7 days. Total time taken is 35 minutes. History of present illness This is a 64-year-old male who was recently admitted for abdominal pain along with nausea and vomiting and was being closely monitored. During hospitalization patient had a CAT scan of the abdomen and pelvis showing dilated fluid-filled small bowel consistent with this small bowel obstruction and small bowel ileus. Surgery was consulted. Patient was continuing to pass gas and have bowel movements and was recommended for conservative management at this time. Patient underwent endoscopy with biopsy yesterday showing duodenitis with superficial erosions, gastritis with superficial erosions and biopsies were obtained of the duodenum and antrum. Patient will follow-up with surgery in the outpatient setting in 1-2 weeks as discussed and scheduled for biopsy results. Patient will continue short course of oral antibiotics in the form of Flagyl and Cipro for the next week and will follow-up with primary care provider upon discharge. Currently patient's condition is stable and is ready for discharge today. Patient would like to go home today. Patient denies any chest pain, shortness of breath, or palpitations at this time. Patient has been afebrile. Patient denying any nausea or vomiting and is tolerating diet. As mentioned previously patient is having bowel movements and passing gas with no issues. Patient states his abdominal discomfort has resolved. Her prognosis. On exam vital signs are stable. Temp is 98.5F, pulse is 59, respirations are 16, blood pressure is 148/79, oxygen saturation is 99% on room air. Cardio S1 and S2 are present. Respiratory system shows clear to auscultation. Abdomen is soft and non-tender. Nervous system shows no focal deficits. Please refer to medication reconciliation sheet for a list of medications. Patient Condition at Discharge: Stable Plan - Discharge Summary Discharge Rx Participant: No New Discharge Prescriptions: New Pantoprazole [Protonix] 40 mg PO DAILY 3 Days #30 tab Ciprofloxacin HCl [Cipro] 500 mg PO Q12H 5 Days #10 tab metroNIDAZOLE [Flagyl] 500 mg PO Q8HR 5 Days #15 tab Continue traMADol HCl [Ultram] 50 mg PO Q6H PRN PRN Reason: Breakthrough Pain fentaNYL 100MCG/HR PATCH [Duragesic 100MCG/HR] 100 mcg TRANSDERM Q48H oxyCODONE HCL [oxyCODONE HCL (IR)] 30 mg PO Q4H PRN PRN Reason: Breakthrough Pain Atenolol [Tenormin] 25 mg PO DAILY Hydrochlorothiazide [Hydrodiuril] 25 mg PO DAILY Finasteride [Proscar] 5 mg PO DAILY Sildenafil Citrate 100 mg PO ONCE PRN PRN Reason: e.d. Testosterone [Androgel 1% Gel Pump] 2 applic TOPICAL DAILY Discharge Medication List Atenolol [Tenormin] 25 mg PO DAILY 02/02/16 [History] fentaNYL 100MCG/HR PATCH [Duragesic 100MCG/HR] 100 mcg TRANSDERM Q48H 02/02/16 [History] oxyCODONE HCL [oxyCODONE HCL (IR)] 30 mg PO Q4H PRN 02/02/16 [History] traMADol HCl [Ultram] 50 mg PO Q6H PRN 02/02/16 [History] Finasteride [Proscar] 5 mg PO DAILY 10/13/19 [History] Hydrochlorothiazide [Hydrodiuril] 25 mg PO DAILY 10/13/19 [History] Sildenafil Citrate 100 mg PO ONCE PRN 10/13/19 [History] Testosterone [Androgel 1% Gel Pump] 2 applic TOPICAL DAILY 10/13/19 [History] Ciprofloxacin HCl [Cipro] 500 mg PO Q12H 5 Days #10 tab 10/17/19 [Rx] Pantoprazole [Protonix] 40 mg PO DAILY 3 Days #30 tab 10/17/19 [Rx] metroNIDAZOLE [Flagyl] 500 mg PO Q8HR 5 Days #15 tab 10/17/19 [Rx] Follow up Appointment(s)/Referral(s): José Kaplan MD [Medical Doctor] - 1 Week Emmanuel Khalil III, MD [Primary Care Provider] - 1-2 days Bariatric [place], [place] [NON-STAFF] - 1 Week Activity/Diet/Wound Care/Special Instructions: Activity Limited until follow-up Follow-up with primary care provider on discharge Complete full course of antibiotics until finished Follow up with surgery in 1-2 weeks Continue current diet and slowly advance as tolerated Discharge Disposition: HOME SELF-CARE
== END 2019-10-17 14:32 | disposition home or self-care (01) | DRG 389 ==
LOC: EC 17:49 → 4SSUR 21:17
PROVIDERS: ADMIT Hospitalist; ATTEND Hospitalist
PROC: 0DB78ZX Excision of Stomach, Pylorus, Via Natural or Artificial Opening Endoscopic, Diagnostic (ICD-10-PCS; 2019-10-16)
PROC: 0DB98ZX Excision of Duodenum, Via Natural or Artificial Opening Endoscopic, Diagnostic (ICD-10-PCS; principal; 2019-10-16 08:00)
DX: K56.690 Other partial intestinal obstruction (principal); E87.2 Acidosis; K57.32 Diverticulitis of large intestine without perforation or abscess without bleeding; K29.70 Gastritis, unspecified, without bleeding; E66.9 Obesity, unspecified; K29.80 Duodenitis without bleeding; Z98.84 Bariatric surgery status; I10 Essential (primary) hypertension; N40.0 Benign prostatic hyperplasia without lower urinary tract symptoms; K80.20 Calculus of gallbladder without cholecystitis without obstruction; G89.29 Other chronic pain; M47.9 Spondylosis, unspecified; M54.5 Low back pain; Z68.39 Body mass index [BMI] 39.0-39.9, adult; Z79.891 Long term (current) use of opiate analgesic; Z79.899 Other long term (current) drug therapy; Z87.891 Personal history of nicotine dependence; Z96.653 Presence of artificial knee joint, bilateral; Z98.890 Other specified postprocedural states; Z91.013 Allergy to seafood
CPT/HCPCS: 36415; 43239; 71045; 74176; 74177; 80048; 80053; 81001; 83605; 83690; 85025; 85027; 85610; 85730; 87040; 87502; 88305; 88342; 93005; 96361; 96374; 96375; 96376; 99285

== ENCOUNTER → 2020-01-01 | Outpatient (CLI) | payer MEDICARE, BC ==
[2020-01-01 15:30] VITALS: BP 128/72; PULSE 80; RESP 16; TEMP 98.2; BMI 38.2
--- NOTE | 2020-01-01 16:15 | P.BASOAP ---
Subjective Progress Note Date: 01/01/20 Principal diagnosis: Morbid obesity Patient here today for bariatric follow-up. Doing well. Good restriction. He is not sure how much is in his band. Band was placed approximately 10 years ago. Patient having mild epigastric pain at times. Much improved after starting on antiacids following his upper endoscopy in the fall. States he is due for a screening colonoscopy. Denies rectal bleeding or melena. No family history of colon cancer. No night cough. No heartburn. Objective - Vital Signs Vital signs: Vital Signs Temp 98.2 F 01/01/20 15:22 Pulse 80 01/01/20 15:22 Resp 16 01/01/20 15:22 BP 128/72 01/01/20 15:22 Pulse Ox Intake & Output 12/31/19 01/01/20 01/01/20 18:59 06:59 18:59 Weight 110.677 kg - Exam Abdomen: Soft, nontender, nondistended Assessment/Plan (1) Morbid obesity Narrative/Plan: Patient doing well from a bariatric standpoint. We'll plan upper and lower endoscopy 01/11 for diagnosis of epigastric pain and screening. Plan: Date: 01/01/20 Initial Weight: 110.677 kg Initial BMI: 38.2 Current Weight: 110.677 kg Current BMI: 38.2 Type of Surgery: Total Volume in Band: Previous Volume: Volume Removed: Volume Added: Band Size:
== END | disposition home or self-care (01) ==
LOC: BARWHC3 15:01
PROVIDERS: ATTEND Surgery
DX: Z48.815 Encounter for surgical aftercare following surgery on the digestive system (principal); E66.01 Morbid (severe) obesity due to excess calories; R10.13 Epigastric pain; Z68.38 Body mass index [BMI] 38.0-38.9, adult; Z98.84 Bariatric surgery status
CPT/HCPCS: 99211

== ENCOUNTER 2020-01-11 08:55 | Day surgery (SDC) | payer MEDICARE, BC ==
[2020-01-09 10:05] VITALS: BMI 37.2
[~2020-01-11 08:55] MED LIST: LACTATED RINGERS 1,000 ML IV SCH; LIDOCAINE 1% (10MG/ML) FOR IV START INTRADERMA PRN
[2020-01-11 09:17] VITALS: RESP 16; TEMP 98
[2020-01-11] MEDS ORDERED: MIDAZOLAM 2 MG/2 ML VIAL ONE (09:23)
[2020-01-11] MEDS ORDERED: PROPOFOL 10 MG/ML 20 ML VIAL IV ONE (09:23)
[2020-01-11] MEDS ORDERED: fentaNYL (PF) 50 MCG/ML 2 ML AMP ONE (09:23)
--- NOTE | 2020-01-11 09:26 | P.GSHP ---
History of Present Illness H&P Date: 01/11/20 Chief Complaint: GERD, epigastric pain, screening Patient here today for screening colonoscopy. Also having epigastric pain and GERD. Underwent endoscopy last fall showing duodenitis and gastritis with erosions. Feeling relatively better. Denies rectal bleeding or melena. No family history of colon cancer. Past Medical History Past Medical History: GERD/Reflux, Hypertension, Prostate Disorder Additional Past Medical History / Comment(s): lower back pain radiating to rt leg History of Any Multi-Drug Resistant Organisms: None Reported Past Surgical History: Back Surgery, Bariatric Surgery, Joint Replacement, Orthopedic Surgery Additional Past Surgical History / Comment(s): walt. knee replacement, walt knee scopes, walt. carpal tunnel. Hx. of having spinal cord stimulator trial approx. 5 years ago, gastric sleeve 10 years ago. EGD/COLONOSCOPY Past Anesthesia/Blood Transfusion Reactions: No Reported Reaction Smoking Status: Former smoker - Past Family History Mother Family Medical History: No Reported History Medications and Allergies Home Medications Medication Instructions Recorded Confirmed Type Atenolol [Tenormin] 25 mg PO DAILY 02/02/16 01/11/20 History fentaNYL 100MCG/HR PATCH 100 mcg TRANSDERM Q48H 02/02/16 01/11/20 History [Duragesic 100MCG/HR] oxyCODONE HCL [oxyCODONE HCL (IR)] 30 mg PO Q4H PRN 02/02/16 01/11/20 History traMADol HCl [Ultram] 50 mg PO Q6H PRN 02/02/16 01/11/20 History Finasteride [Proscar] 5 mg PO DAILY 10/13/19 01/11/20 History Hydrochlorothiazide [Hydrodiuril] 25 mg PO DAILY 10/13/19 01/11/20 History Sildenafil Citrate 100 mg PO ONCE PRN 10/13/19 01/11/20 History Testosterone [Androgel 1% Gel Pump] 2 applic TOPICAL DAILY 10/13/19 01/11/20 History Famotidine [Pepcid] 40 mg PO DAILY 01/01/20 01/11/20 History Allergies Allergy/AdvReac Type Severity Reaction Status Date / Time SHEILA Inhibitors Allergy Swelling Verified 01/11/20 09:11 shellfish derived [Shellfish] Allergy Rash/Hives Verified 01/11/20 09:11 Surgical - Exam Vital Signs Temp Pulse Resp BP Pulse Ox 98.0 F 66 16 146/83 94 L 01/11/20 09:15 01/11/20 09:15 01/11/20 09:15 01/11/20 09:15 01/11/20 09:15 Physical exam: General: Well-developed, well-nourished HEENT: Normocephalic, sclerae nonicteric Abdomen: Nontender, nondistended Extremities: No edema Neuro: Alert and oriented Assessment and Plan (1) Epigastric abdominal pain Narrative/Plan: Will proceed with upper and lower endoscopy Current Visit: Yes Status: Acute Code(s): R10.13 - EPIGASTRIC PAIN SNOMED Code(s): 70926502
--- NOTE | 2020-01-11 09:43 | P.PCN ---
Date of Procedure: 01/11/20 Procedure(s) Performed: PREOPERATIVE DIAGNOSIS: Abdominal pain, screening POSTOPERATIVE DIAGNOSIS: Mild gastritis, tortuous colon with suboptimal prep PROCEDURE: 1. EGD with biopsy 2. Attempted colonoscopy ANESTHESIA: MAC SURGEON: José Kaplan M.D. SPECIMENS: Antrum ENDOSCOPIC PROCEDURE: The patient was on the endoscopy table in the left decubitus position. The Olympus gastroscope was inserted into the oropharynx and passed under direct visualization to the region of the third portion of the duodenum. From that point the scope was slowly withdrawn inspecting all surfaces carefully. There were no neoplastic inflammatory or polypoid lesions throughout the duodenum. The pylorus was widely patent. The stomach was carefully inspected. There was gastritis present. A biopsy of the antrum took place to rule out H. pylori. Retroflexion revealed a normal band plication. There was no evidence of hiatal hernia. The esophagus was then carefully examined. There were no neoplastic inflammatory or polypoid lesions throughout the visualized esophagus. The patient was kept on the endoscopy table in the left decubitus position. The Olympus colonoscope was inserted into the anus and passed under direct visualization to the proximal sigmoid colon. The patient had significant tortuosity. I was unable to advance the scope more proximal despite a variety of different maneuvers. Additionally the patient's prep was suboptimal with some retained liquid and solid stool seen throughout. Diverticulosis was noted in the sigmoid colon. The scope was withdrawn. No gross mucosal abnormalities of the sigmoid or rectum was seen. Digital rectal examination was normal. The patient was taken to the recovery room in stable condition per anesthesia guidelines. RECOMMENDATIONS: Await biopsy results. Continue as needed antiacid therapy. We'll schedule for outpatient barium enema in 1-2 months.
[2020-01-11] MEDS ORDERED: hydrALAZINE HCL 20 MG/ML 1 ML VIAL IV ONE (09:53)
[2020-01-11 10:35] VITALS: BP 144/94; PULSE 60
== END 2020-01-11 10:50 | disposition home or self-care (01) ==
LOC: ORWHC2ENDO 08:55
PROVIDERS: ATTEND Surgery
DX: K29.50 Unspecified chronic gastritis without bleeding (principal); K21.9 Gastro-esophageal reflux disease without esophagitis; Z12.11 Encounter for screening for malignant neoplasm of colon; Q43.8 Other specified congenital malformations of intestine; K57.30 Diverticulosis of large intestine without perforation or abscess without bleeding; I10 Essential (primary) hypertension; N42.9 Disorder of prostate, unspecified; M54.5 Low back pain; M79.604 Pain in right leg; E66.01 Morbid (severe) obesity due to excess calories; Z68.37 Body mass index [BMI] 37.0-37.9, adult; Z87.19 Personal history of other diseases of the digestive system; Z98.890 Other specified postprocedural states; Z98.84 Bariatric surgery status; Z96.653 Presence of artificial knee joint, bilateral; Z86.69 Personal history of other diseases of the nervous system and sense organs; Z87.891 Personal history of nicotine dependence; Z79.899 Other long term (current) drug therapy; Z79.891 Long term (current) use of opiate analgesic; Z79.890 Hormone replacement therapy; Z88.8 Allergy status to other drugs, medicaments and biological substances; Z91.013 Allergy to seafood; Z97.2 Presence of dental prosthetic device (complete) (partial)
CPT/HCPCS: 45330; 43239; 88305; J2250; J3010; J2704

== ENCOUNTER → 2020-06-30 | Outpatient (CLI) | payer MEDICARE, BC ==
--- NOTE | 2020-06-30 10:46 | FL ---
EXAMINATION TYPE: FL barium enema w air contrast DATE OF EXAM: 06/30/2020 COMPARISON: NONE HISTORY: Change in bowel habits. TECHNIQUE: Barium and air were instilled into the colon from the rectum to the cecum. Multiple spot and overhead images are obtained. FINDINGS: I do not see evidence for annular constricting lesion or fungating mass. No polypoid lesio ns are identified. Mucosal fold pattern has a normal appearance. No evidence for inflammatory bowel disease. Normal-appearing appendix which is retrocecal. [id number] sigmoid diverticulosis wit hout diverticulitis at this time. IMPRESSION: Sigmoid diverticulosis. Otherwise unremarkable study.
== END | disposition home or self-care (01) ==
LOC: RADFLMAIN 09:03
PROVIDERS: ATTEND Surgery
DX: Z12.11 Encounter for screening for malignant neoplasm of colon (principal); K57.30 Diverticulosis of large intestine without perforation or abscess without bleeding
CPT/HCPCS: 74280

== ENCOUNTER → 2022-03-31 | Outpatient (CLI) | payer MEDICARE, BC ==
[2022-03-31 14:24] VITALS: BP 153/70; PULSE 60; RESP 18
--- NOTE | 2022-03-31 14:46 | P.CON ---
Consult Note - . Consult date: 03/31/22 Assessment/Plan:: HISTORY OF PRESENT ILLNESS: 67 yr old male with at side as a referral from Dr Khalil presents today with severe and chronic thoracolumbar pain secondary to retrolisthesis, spondylolisthesis, DDD, spondylosis, severe neuroforaminal stenoses and facet arthropathy for evaluation. Awaiting MRI lumbar spine report. Pt states his pain is 2/10 in intensity, tingly and achy in the mid to lower aspects of his thoracolumbar spine but escalates as high as up to 10/10 with bending, lifting and twisting. No radiation of pain. Pain is relieved with medications (oxycodone 30mg and fentanyl patches), topicals, home based stretching regmen and inactivity. Pt denies formal PT, chiropractic treatment sessions. Past Medical History: GERD/Reflux, Hypertension, Prostate Disorder Past Surgical History: Lumbar L3-L5 laminectomy, Hx of Spinal stimulator approx 5 years ago, Gastric Sleeve Bariatric surgery, BL Knee Replacement, BL Knee Arthroscopy, BL Carpal Tunnel Release, EGD, Colonoscopy Social History: Former smoker, no ETOH abuse, no illicit drug use. and lives with spouse. Family History: Mother-No Reported History All: See list Meds: See list REVIEW OF ORGAN SYSTEMS: CONSTITUTIONAL: No fevers or chills. No recent weight loss. HEENT: No visual acuity loss, eye pain, difficulties with hearing. No nosebleeds. No difficulty swallowing. RESPIRATORY: Denies any troubles with breathing or dyspnea on exertion. CARDIOVASCULAR: Denies any chest pain, palpitations, or recent heart attacks. GASTROINTESTINAL: Denies fatty food intolerance. Has change in bowel habits and gas bloat. GENITOURINARY: Denies any blood in urine. Has increased urinary frequency. NEUROLOGICAL: + numbness and tingling along the distal extremities. No seizure disorders or headaches. MUSCULOSKELETAL: + back pain SKIN: No skin cancer. No rash. PSYCHIATRIC: Denies current depression or suicidal thoughts. ENDOCRINE: Denies current thyroid disorders. Denies any blood sugar glucose intolerance. HEME/LYMPHATIC: Denies any lumps and bumps around the neck. History of deep venous thrombosis. ALLERGY/IMMUNOLOGY: No immunoglobulin therapy. No immune deficiencies. BREAST: Denies current breast lumps, pain or nipple discharge. Physical Examinations : Constitutional : Cooperative , not in acute distress . HEENT: Neck supple. No Lymphadenopathy. Normal thyroid size . Eyes no ptosis , no icterus, no photophobia . Hearing intact. Normal oropharynx. No Thrush. Respiratory : Chest clear to auscultations bilaterally. No wheezing. No rhonchi. Cardiovascular : Regular rate and rhythm , S1 / S2. No S3 . No S4. Gastrointestinal : Abdomen soft. No tenderness. Bowel sounds x 4. No organomegaly . Genitourinary : Deferred. Neurologic : Cranial nerve II to XII intact. No focal neurological deficits. Psychiatric : alert & oriented x 3. Matching mood & appropriate affect. Judgment & insight intact. Lymphatic No Lymphadenopathy. Musculoskeletal : Cervical Spine Motor strength in the deltoid and biceps: Normal right side. Normal Left side Motor strength biceps and the wrist extensors: Normal right side . Normal left side Motor strength in the triceps muscle: Normal right side. Normal left side Deep tendon reflexes: Normal at the biceps. Normal at Brachioradialis. Normal at triceps Cervical facet loading test: positive bilaterally Spurling test: positive bilaterally Neck distraction test: positive bilaterally Jocelyne sign: positive bilaterally Thoracic spine Jump reflex over T9-T10, T10-T11 facets with jump reflex Lumbar spine Motor strength lower extremities ,thigh and legs 5/5 Right side , 5/5 Left side Deep tendon reflexes : Normal Knee Jerk. Normal Ankle Jerk Vertebral body tenderness over Lumbar facet Loading Test: positive Right / positive Left Range of motion of the lumbar spine Flexion 30 degrees, extension 10 degrees Straight Leg Raise test: Left/ Right positive at degree Kareen test: positive right / positive left. Severe tenderness over the Sacroiliac joint on the Right / Left sides Gaenslen test: positive bilaterally Seated flexion test: positive bilaterally. Imaging: MRI without contrast of the lumbar spine from 03/29/22 reviewed Assessment/ Plan : Lumbar DDD, Lumbar spondylosis, thoracolumbar scoliosis, thoracolumbar facet arthropathy Recommendation of PT 3 times per week x 6 weeks Recommendation of facet blocks of the medial branches T9-T10, T10-T11. May need a series of injections, up until RFA, for optimal pain relief. Risks, benefits of procedure discussed and patient verbalized understanding. Denies aspirin or anti- coagulant use or medical history of diabetes. All questions answered. I have spent greater than 50 minutes on patient care today. Dr Pedraza was available by phone for the evaluation of this patient. The time was used to review the medical records including relevant urine studies and Prescription history (MAPs), review of the available imaging, evaluation and examination of the patient, coordination of care with the medical staff and if applicable referring physicians, as well as creation of the medical record PQRS Measure Charge Sheet Mode of Arrival: Ambulatory - Pain Location Lower Back Non-Pharmacological Interventions: Position/Reposition Pharmacological Interventions: PRN Medication, Topical Medication PQRS Narrative: Smoking Status Former smoker Blood Pressure 153/70 Pain Intensity [Lower Back] 2 Scale Used Numeric (1 - 10) Hx Alcohol Use (MH) No Home Medications: Ambulatory Orders atenoloL [Tenormin] 25 mg PO DAILY 02/02/16 fentaNYL 100MCG/HR PATCH [Duragesic 100MCG/HR] 100 mcg TRANSDERM Q48H 02/02/16 oxyCODONE HCL [oxyCODONE HCL (IR)] 30 mg PO Q4H PRN 02/02/16 traMADol HCl [Ultram] 50 mg PO Q6H PRN 02/02/16 Finasteride [Proscar] 5 mg PO DAILY 10/13/19 Sildenafil Citrate 100 mg PO ONCE PRN 10/13/19 Testosterone [Androgel 1% Gel Pump] 2 applic TOPICAL DAILY 10/13/19 hydroCHLOROthiazide [Hydrodiuril] 25 mg PO DAILY 10/13/19 Famotidine [Pepcid] 40 mg PO DAILY 01/01/20
== END | disposition home or self-care (01) ==
LOC: PNWHC3 13:41
PROVIDERS: ATTEND Specialist
DX: M12.88 Other specific arthropathies, not elsewhere classified, other specified site (principal); M51.36 Other intervertebral disc degeneration, lumbar region
CPT/HCPCS: 99211

== ENCOUNTER 2022-05-14 09:15 | Day surgery (SDC) | payer MEDICARE, BC ==
[2022-05-13 12:32] VITALS: BMI 36.5
[2022-05-14] MEDS ORDERED: LACTATED RINGERS 1,000 ML IV SCH (09:18)
[2022-05-14] MEDS ORDERED: LIDOCAINE 1% (10MG/ML) FOR IV START INTRADERMA PRN (09:18)
[2022-05-14] MEDS ORDERED: LACTATED RINGERS 1,000 ML IV ONE (09:28)
[2022-05-14 09:29] VITALS: TEMP 98
[2022-05-14] MEDS ORDERED: methylPREDNISolone ACETATE 40 MG/ML 1 ML VIAL ONE (09:47)
[2022-05-14] MEDS ORDERED: ROPIVACAINE 5MG/ML 20ML VIAL ONE (09:47)
[2022-05-14] MEDS ORDERED: MIDAZOLAM 2 MG/2 ML VIAL ONE (09:49)
[2022-05-14] MEDS ORDERED: fentaNYL (PF) 50 MCG/ML 2 ML AMP ONE (09:49)
[2022-05-14] MEDS ORDERED: IV FLUID CONTINUATION 1,000 ML IV ONE ×2 (10:18)
--- NOTE | 2022-05-14 10:19 | P.PCN ---
Date of Procedure: 05/14/22 Procedure(s) Performed: PREOPERATIVE DIAGNOSIS : 1- Thoracic and Lumbar spondylosis with Facet Arthropathy without myelopathy . POSTOPERATIVE DIAGNOSIS: 1- Thoracic Lumbar spondylosis with Facet Arthropathy without myelopathy . PROCEDURE: Diagnostic bilateral T11, T12 , L1 medial branch block under fluoroscopy guidance(fluoroscopy images available in the radiology Department ) ( To target the facet joint between bilaterally T11-12, T12-L1 ) ANESTHESIA:, Monitored anesthesia care as per anesthesia department EBL: Minimal COMPLICATION: None PROCEDURE INDICATION: Chronic mid and back pain secondary to Facet arthropathy unresponsive to conservative treatment. PROCEDURE DESCRIPTION: the patient was seen and identified in the preop holding area , risks and benefits and possible complications of the procedure and altern ative were discussed with the patient, and the patient agreed to proceed with the procedure and signed the consent and vital signs monitored during the procedure and fluoroscopy was used to maximize the benefit and accuracy of the needle placement, and sedation was given to decrease patient anxiety, patient was taken to the procedure room and placed in prone position vital signs monitored in the back prepped with chlorhexidine X3 then under strict sterile technique using a right oblique fluoroscopy ,the junction of the transverse process and the superior articulating process of the right T11, T12 ,L1 vertebra which corresponding to the fluoroscopy image of the eye of the Diego dog on the block side for the medial branches and subsequently , after local infiltration of skin and subcu tissuies with Ropivacaine 0.5 % , one mL at each level ,then 25-gauge Quincke-type needles , 3 needle was used , each one of them placed at the junction of the base of the transverse process and the superior articular process at the appropriate level, and the needle was advanced until the periosteum contacted, needle placement confirmed with AP oblique and lateral view and after appropriate needle placement confirmed, and after negative aspiration for heme and CSF and there was no paresthesia 1-1/2 mL of Ropivacaine 0.5% mixed with 20 mg Depo-Medrol , then half mL injected at each level after negative aspiration the needle subsequently removed and the same procedure repeated for the left side at left side at T11 ,T12 , L1 At the end of the procedure and the needles removed and a bandage applied after the skin was cleaned the cleaning solution patient taken to recovery room in stable condition and monitors in the recovery room for 20-30 minutes and discharged home in stable condition after discharge criteria met and patient will follow up with the pain clinic in 2-4 weeks note= patient was scheduled to have diagnostic medial branch block on the left side T9-10 , T 10,11, but in the preoperative holding area patient for that his pain bilaterally and it's more painful on the left side that he had pain at on the right side also, discussed with the patient the option of doing bilateral medial branch block and the levels will be treated determined in the procedure room after we do fluoroscopy, to jacoby the most painful area after we placed patient on the procedure table minimarket the most painful area and it was located between T11 to L1, for this reason I did the procedure and I did do diagnostic medial branch block at T11-T12 and T12-L1 bilaterally
[2022-05-14 10:21] VITALS: RESP 16
[2022-05-14 10:41] VITALS: BP 120/73; PULSE 71
--- NOTE | 2022-05-14 10:41 | XR ---
EXAMINATION TYPE: XR chest 1V portable DATE OF EXAM: 05/14/2022 COMPARISON: Chest x-ray 10/13/2019 HISTORY: Pneumothorax, pain TECHNIQUE: Single frontal view of the chest is obtained. FINDINGS: Volumes are low. No evident pneumothorax or pleural effusion. Cardiac mediastinal silhouet te is stable. Prominence of interstitium, patchy basilar density noted. Bones are stable, there is th oracic spondylosis. IMPRESSION: Expiratory rotated exam. No evident complication status post intervention.
--- NOTE | 2022-05-14 11:11 | FL ---
Fluoroscopy HISTORY: Pain 27 seconds fluoroscopy time supplied to the referring clinician. 4 intraoperative C-arm images docum ent the procedure. See dictated report from anesthesia.
== END 2022-05-14 11:09 | disposition home or self-care (01) ==
LOC: ORPAIN 09:15
PROVIDERS: ATTEND Specialist
DX: M47.815 Spondylosis without myelopathy or radiculopathy, thoracolumbar region (principal); I10 Essential (primary) hypertension; N40.0 Benign prostatic hyperplasia without lower urinary tract symptoms; K21.9 Gastro-esophageal reflux disease without esophagitis; Z79.899 Other long term (current) drug therapy; Z91.013 Allergy to seafood; Z88.8 Allergy status to other drugs, medicaments and biological substances; Z87.891 Personal history of nicotine dependence
CPT/HCPCS: 71045; 64490; 64491; J2250; J1030; J3010; J2795

== ENCOUNTER 2022-06-17 11:01 | Day surgery (SDC) | payer MEDICARE, BC ==
[2022-06-16 15:03] VITALS: BMI 36.5
[~2022-06-17 11:01] MED LIST changes: -LACTATED RINGERS 1,000 ML IV SCH
[2022-06-17 11:20] VITALS: RESP 16; TEMP 97.8
[2022-06-17] MEDS: LACTATED RINGERS 1,000 ML IV SCH ×2 (11:27→12:28)
[2022-06-17] MEDS ORDERED: MIDAZOLAM 2 MG/2 ML VIAL ONE (12:30)
[2022-06-17] MEDS ORDERED: methylPREDNISolone ACETATE 40 MG/ML 1 ML VIAL ONE (12:30)
[2022-06-17] MEDS ORDERED: fentaNYL (PF) 50 MCG/ML 2 ML AMP ONE (12:30)
[2022-06-17] MEDS ORDERED: ROPIVACAINE 5 MG/ML 20 ML AMPULE ONE (12:30)
--- NOTE | 2022-06-17 12:59 | P.PCN ---
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 PROCEDURE: Diagnostic bilateral T11, T12 , L1 medial branch block under fluoroscopy guidance(fluoroscopy images available in the radiology Department ) ( To target the facet joint between bilaterally T11-12, T12-L1 )#2nd ANESTHESIA:, Monitored anesthesia care as per anesthesia department EBL: Minimal COMPLICATION: None PROCEDURE INDICATION: Chronic mid and back pain secondary to Facet arthropathy unresponsive to conservative treatment. PROCEDURE DESCRIPTION: the patient was seen and identified in the preop holding area , risks and benefits and possible complications of the procedure and alternative were discussed with the patient, and the patient agreed to proceed with the procedure and signed the consent and vital signs monitored during the procedure and fluoroscopy was used to maximize the benefit and accuracy of the needle placement, and sedation was given to decrease patient anxiety, patient was taken to the procedure room and placed in prone position vital signs monitored in the back prepped with chlorhexidine X3 then under strict sterile technique using a right oblique fluoroscopy ,the junction of the transverse process and the superior articulating process of the right T11, T12 ,L1 vertebra which corresponding to the fluoroscopy image of the eye of the Diego dog on the block side for the medial branches and subsequently , after local infiltration of skin and subcu tissuies with Ropivacaine 0.5 % , one mL at each level ,then 25-gauge Quincke-type needles , 3 needle was used , each one of them placed at the junction of the base of the transverse process and the superior articular process at the appropriate level, and the needle was advanced until the periosteum contacted, needle placement confirmed with AP oblique and lateral view and after appropriate needle placement confirmed, and after negative aspiration for heme and CSF and there was no paresthesia 1-1/2 mL of Ropivacaine 0.5% mixed with 20 mg Depo-Medrol , then half mL injected at each level after negative aspiration the needle subsequently removed and the same procedure repeated for the left side at left side at T11 ,T12 , L1 At the end of the procedure and the needles removed and a bandage applied after the skin was cleaned the cleaning solution patient taken to recovery room in stable condition and monitors in the recovery room for 20-30 minutes and discharged home in stable condition after discharge criteria met and patient will follow up with the pain clinic in 2-4 weeks
[2022-06-17] MEDS ORDERED: IV FLUID CONTINUATION 600 ML IV ONE (13:03)
[2022-06-17 13:06] VITALS: BP 129/81
--- NOTE | 2022-06-17 13:09 | FL ---
Intraoperative/procedural fluoroscopic services were provided. Total fluoroscopy time is 17 seconds w ith a total of 4 submitted images to PACS. Please see the operative/procedural note for further detai ls.
[2022-06-17 13:22] VITALS: PULSE 53
== END 2022-06-17 13:45 | disposition home or self-care (01) ==
LOC: ORPAIN 11:01
PROVIDERS: ATTEND Specialist
DX: G89.29 Other chronic pain (principal); M47.816 Spondylosis without myelopathy or radiculopathy, lumbar region; M47.814 Spondylosis without myelopathy or radiculopathy, thoracic region; I10 Essential (primary) hypertension; K21.9 Gastro-esophageal reflux disease without esophagitis; Z97.2 Presence of dental prosthetic device (complete) (partial); Z79.891 Long term (current) use of opiate analgesic; Z79.899 Other long term (current) drug therapy; Z88.8 Allergy status to other drugs, medicaments and biological substances; Z91.013 Allergy to seafood
CPT/HCPCS: 64490; 64491; J2250; J1030; J3010; J2795

== ENCOUNTER → 2022-07-01 | Outpatient (CLI) | payer MEDICARE, BC ==
[2022-07-01 14:18] VITALS: BP 119/61; PULSE 55; RESP 20; TEMP 97.8
--- NOTE | 2022-07-01 14:28 | P.PN ---
Subjective Progress Note Date: 07/01/22 This is a follow-up visit for this 67 years old male with a chronic history of thoracolumbar spine pain, previously we have done diagnostic medial branch block thoracic and lumbar area at T11 12 and T12-L1 , x2 patient reported that he had excellent pain relief after each block and the pain relief was only for short time, reports his pain was 8/10 before the first block under dropped to 0/10 after the block and the relief lasted for a couple of days only, he gets similar result after the second time, he described his symptoms as tingly and achy in the mid to lower aspects of his thoracolumbar spine but escalates as high as up to 10/10 with bending, lifting and twisting. No radiation of pain. Pain is relieved with medications (oxycodone 30mg and fentanyl patches), topicals, home based stretching regmen and inactivity. Pt denies formal PT, chiropractic treatment sessions. Physical Examinations : Constitutional : Cooperative , not in acute distress . HEENT: Neck supple. No Lymphadenopathy. Normal thyroid size . Neurologic : Cranial nerve II to XII intact. No focal neurological deficits. Psychiatric : alert & oriented x 3. Matching mood & appropriate affect. Judgment & insight intact. Lymphatic No Lymphadenopathy. Musculoskeletal : Cervical Spine Motor strength in the deltoid and biceps: Normal right side. Normal Left side Motor strength biceps and the wrist extensors: Normal right side . Normal left side Motor strength in the triceps muscle: Normal right side. Normal left side Deep tendon reflexes: Normal at the biceps. Normal at Brachioradialis. Normal at triceps Cervical facet loading test: positive bilaterally Spurling test: positive bilaterally Neck distraction test: positive bilaterally Jocelyne sign: positive bilaterally Thoracic spine Jump reflex over T9-T10, T10-T11 facets with jump reflex Lumbar spine Motor strength lower extremities ,thigh and legs 5/5 Right side , 5/5 Left side Deep tendon reflexes : Normal Knee Jerk. Normal Ankle Jerk Vertebral body tenderness over Lumbar facet Loading Test: positive Right / positive Left Range of motion of the lumbar spine Flexion 30 degrees, extension 10 degrees Straight Leg Raise test: Left/ Right positive at degree Kareen test: positive right / positive left. Severe tenderness over the Sacroiliac joint on the Right / Left sides Gaenslen test: positive bilaterally Seated flexion test: positive bilaterally. Imaging: MRI without contrast of the lumbar spine from 5/2/22 reviewed Assessment/ Plan : Lumbar DDD, Lumbar spondylosis, thoracolumbar scoliosis, thoracolumbar facet arthropathy Patient had excellent pain relief after diagnostic medial branch blocks thoracic lumbar area Description this will be good candidate to have refilled the medial thoracic lumbar spine at T11-T12, T12-L1 Objective - Vital Signs Vital signs: Vital Signs Temp 97.8 F 07/01/22 14:15 Pulse 55 L 07/01/22 14:15 Resp 20 07/01/22 14:15 BP 119/61 07/01/22 14:15 Pulse Ox 97 07/01/22 14:15 FiO2 Intake & Output 06/30/22 07/01/22 07/01/22 18:59 06:59 18:59 Weight 102.058 kg
== END ==
LOC: PNWHC3 13:47
PROVIDERS: ATTEND Specialist
DX: M51.36 Other intervertebral disc degeneration, lumbar region (principal); M47.816 Spondylosis without myelopathy or radiculopathy, lumbar region; M47.895 Other spondylosis, thoracolumbar region; M41.9 Scoliosis, unspecified; Z91.013 Allergy to seafood; Z88.8 Allergy status to other drugs, medicaments and biological substances; Z87.891 Personal history of nicotine dependence
CPT/HCPCS: 99211

== ENCOUNTER 2022-08-06 12:56 | Day surgery (SDC) | payer MEDICARE, BC ==
[~2022-08-06 12:56] MED LIST changes: +LACTATED RINGERS 1,000 ML IV SCH
[2022-08-06 13:21] VITALS: TEMP 97.2
[2022-08-06] MEDS ORDERED: methylPREDNISolone ACETATE 40 MG/ML 1 ML VIAL ONE (13:23)
[2022-08-06] MEDS ORDERED: fentaNYL (PF) 50 MCG/ML 2 ML AMP ONE (13:23)
[2022-08-06] MEDS ORDERED: MIDAZOLAM 2 MG/2 ML VIAL ONE (13:23)
[2022-08-06] MEDS ORDERED: ROPIVACAINE 5MG/ML 20ML VIAL ONE (13:23)
[2022-08-06] MEDS ORDERED: IV FLUID CONTINUATION 1,000 ML IV ONE (14:00)
--- NOTE | 2022-08-06 14:00 | P.PCN ---
Date of Procedure: 08/06/22 Procedure(s) Performed: PREOPERATIVE DIAGNOSIS: 1-Thoracic and Lumbar Spondylosis with Facet Ar thropathy without myelopathy. POSTOPERATIVE DIAGNOSIS: 1-Thoracic and Lumbar Spondylosis with Facet Arthropathy without myelopathy. PROCEDURES : Bilateral Radiofrequency thermocoagulation, T11 , T12, and L1 medial branch, with fluoroscopic guidance (fluoroscopy images available in the radiology department) ( to denervate the facet joint at bilateral T11-12 ,and T12-L1 levels ). ANESTHESIA: Monitored anesthesia care as per anesthesia department . EBL: Minimal PROCEDURE INDICATION: The patient with low back pain secondary to lumbar facet arthropathy who had more than 50% relief of her pain with previous diagnostic lumbar medial branch block with bupivacaine. PROCEDURE DESCRIPTION / TECHNIQUE: The patient was seen and identified in the preoperative area. Risks, benefits, complications, including but not limited to risk of infection ,bleeding , allergic reactions to the medications and no complete pain releife , and alternatives were discussed with the patient, the patient agreed to proceed with the procedure and signed the consent. IV was started. Vital signs remained stable throughout the procedure. Patient was taken to the OR and time out was completed. The patient was placed in the prone position on the procedure table. The lumber area was prepped and draped in the usual sterile fashion. . Vital signs were closely monitored during the procedure .IV sedation was used during the procedure to decrease patients anxiety. Using AP and then oblique fluoroscopy, the ``eye of the Diego dog corresponding to the connection between the superior and transverse articular processes of right T11,T12, and L1 were identified, marked, and localized with 1% lidocaine. Subsequently, a 18 [id number] radiofrequency cannula with a 10- mm active tip was advanced guided by fluoroscopy to each of the``eyes of the Diego dog at right T11,T12 ,L1. Each site then underwent sensory testing at 50 Hz and 0 to 1 volt and motor testing at 2.5 Hz and 0 to 3 volt with local stimulation, but no radicular symptoms down the legs. Thereafter each sites underwent radiofrequency thermocoagulation at 80 degrees celsius for 90 seconds after injecting 0.5 ml of PF Ropivacaine 1ml, then after the thermocoagulation done , 1 ml of the block solution containing Depo-Medrol 20 mg and 3 ml of Ropivacaine 0.5% was injected at the right T11,T12,L1 , levels after negative aspiration of CSF and blood and with no paresthesias. Cannulas were retracted while injecting lidocaine 1% until the needle is out. The same procedure was repeated at the level of Left T11,T12 ,L1 levels. At the end of the procedure, the skin was cleansed and bandages were applied. COMPLICATIONS: No acute complications. DISPOSITION / PLANS: The patient was placed in a supine position and transferred to the recovery area in a stable condition for observation and was discharged from the recovery room after meeting discharge criteria. Home discharge instructions given to the patient by the staff. The patient was reexamined prior to discharge. The patient will schedule a follow up in the clinic in 2-4 weeks.
[2022-08-06 14:37] VITALS: BP 124/62; PULSE 65; RESP 18
--- NOTE | 2022-08-06 14:51 | FL ---
EXAMINATION TYPE: FL guided pain mgmt statistic DATE OF EXAM: 08/06/2022 HISTORY: Fluoroscopy time 27 seconds of fluoroscopy provided. IMPRESSION: 1. Fluoroscopy time.
--- NOTE | 2022-08-06 14:52 | XR ---
EXAMINATION TYPE: XR chest 1V portable DATE OF EXAM: 08/06/2022 COMPARISON: 05/14/2022 HISTORY: Post thoracic puncture TECHNIQUE: Single frontal view of the chest is obtained. FINDINGS: There is a limited inspiration with elevated right hemidiaphragm and subsegmental consolid ation involving the right lung base. Hypertrophic and degenerative changes of the spine. Heart size n ormal. No pleural effusion or pneumothorax. IMPRESSION: 1. No pneumothorax 2. Right lower lobe atelectasis or infiltrate correlate clinically. Elevated hemidiaphragm persist on the right.
== END 2022-08-06 15:05 | disposition home or self-care (01) ==
LOC: ORPAIN 12:56
PROVIDERS: ATTEND Specialist
DX: M47.814 Spondylosis without myelopathy or radiculopathy, thoracic region (principal); M47.816 Spondylosis without myelopathy or radiculopathy, lumbar region; I10 Essential (primary) hypertension; K21.9 Gastro-esophageal reflux disease without esophagitis; Z87.891 Personal history of nicotine dependence; Z88.8 Allergy status to other drugs, medicaments and biological substances; Z79.899 Other long term (current) drug therapy
CPT/HCPCS: 71045; 64633; 64634 ×2; J2250; J1030; J3010; J2795

== ENCOUNTER → 2022-08-25 | Outpatient (CLI) | payer MEDICARE, BC ==
[2022-08-25 12:52] VITALS: BP 144/87; PULSE 67; RESP 18; TEMP 98.6
--- NOTE | 2022-08-25 14:53 | P.PAINPG ---
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 Pt states he experienced 50% pain relief s/p procedure. Pain level is currently at 4/10 in intensity, constant, localized in lower lumbar spine, sore/ achy in character w shooting towards the BLEs. Pain is provoked by activities. Pain is alleviated with PT in March 2022, massage integrated w PT, medications (Oxycodone, Fentanyl from his PCP), repositioning, laying supine and rest. Interventional pain procedures completed include BL RFA T11-L1 Patient is currently on Oxycodone, Fentanyl patches Patient denies any side effects of the medication(s), denies excessive drowsiness or sleepiness, denies suicidal ideation and reports that the current pain medication is helping to control the pain and improve activities of daily living. Patient denies any motor or sensory deficits. Patient denies any fever or night sweats, denies any change in the bowel movements or urination. Physical Examination: -Constitutional: Cooperative. Not in acute distress . - Neurologic: Cranial nerve II to XII intact. No focal neurological deficits. - Psychatric: Alert & oriented x 3. Matching mood & appropriate affect. Judgment and insight intact. - Musculoskeletal: Cervical spine: Muscle bulk/ tone/ strength in the bilateral upper extremities normal Vertebral body tenderness to palpation over Spurling test positive Distraction test positive Facet loading test positive Thoracic spine Muscle bulk / tone/ strength in the bilateral paraspinal muscles normal Vertebral body tender to palpation over Facet loading test positive Lumbar spine: Motor bulk/ tone/ strength lower extremities , thigh and legs : 5/5 Deep tendon reflexes : Normal Knee Jerk. Normal Ankle Jerk . Vertebral body tenderness to palpation over L4 Lumbar Facet Loading Test positive Straight Leg Raise: positive at 30 degrees right side/ left side Gaenslen's Test positive Sacral spine : Severe tenderness over the Sacroiliac joint: right side / left side Range of motion: Flexion of the lumbar spine <60 degrees Range of motion: Extension of the lumbar spine <20 degrees Gaenslen's Test positive Kwabena's Test positive Kareen test: positive right side / left side Thigh Thrust Test Sacral Thrust Test Assessment and plan: Chronic mid to low back pain secondary to thoracolumbar degenerative disc disease , spondylosis with facet arthropathy without myelopathy Recommendation of YUNIEL L4-L5 #1. May need a series of injections, up to 3 within a 6 mo period, for optimal pain relief. Risks, benefits of procedure discussed and pt verbalized understanding. Denies anticoagulant use or medical history of diabetes. All patient questions answered I have spent less than 30 minutes on patient care today. Dr Pedraza was available by phone for the evaluation of this patient. The time was used to review the medical records including relevant urine studies and Prescription history (MAPs), review of the available imaging, evaluation and examination of the patient, coordination of care with the medical staff and if applicable referring physicians, as well as creation of the medical record PQRS Narrative: Smoking Status Former smoker Hx Alcohol Use (MH) No Home Medications: Ambulatory Orders atenoloL [Tenormin] 25 mg PO DAILY 02/02/16 fentaNYL 100MCG/HR PATCH [Duragesic 100MCG/HR] 100 mcg TRANSDERM Q48H 02/02/16 oxyCODONE HCL [oxyCODONE HCL (IR)] 30 mg PO Q4H PRN 02/02/16 Finasteride [Proscar] 5 mg PO DAILY 10/13/19 Testosterone [Androgel 1% Gel Pump] 1 applic TOPICAL DAILY 10/13/19 hydroCHLOROthiazide [Hydrodiuril] 25 mg PO DAILY 10/13/19 Controlled Substance Measures - Controlled Substance Measures Is patient prescribed a controlled substance at discharge?: No
== END | disposition home or self-care (01) ==
LOC: PNWHC3 12:02
PROVIDERS: ATTEND Specialist
DX: M47.895 Other spondylosis, thoracolumbar region (principal); M51.35 Other intervertebral disc degeneration, thoracolumbar region
CPT/HCPCS: 99211

== ENCOUNTER 2022-09-09 09:40 | Day surgery (SDC) | payer MEDICARE, BC ==
[2022-09-09 10:02] VITALS: RESP 16; TEMP 97
[2022-09-09] MEDS ORDERED: LACTATED RINGERS 1,000 ML IV ONE (10:02)
[2022-09-09] MEDS ORDERED: TRIAMCINOLONE ACETONIDE 40 MG/ML 1 ML VIAL ONE (10:41)
[2022-09-09] MEDS ORDERED: MIDAZOLAM 2 MG/2 ML VIAL ONE (10:41)
[2022-09-09] MEDS ORDERED: fentaNYL (PF) 50 MCG/ML 2 ML AMP ONE (10:41)
[2022-09-09] MEDS ORDERED: LACTATED RINGERS 1,000 ML IV SCH (11:00)
--- NOTE | 2022-09-09 11:00 | P.PCN ---
Date of Procedure: 09/09/22 Description of Procedure: PREOPERATIVE DIAGNOSIS: 1-lumbar radiculopathy 2-Lumbar spondylosis with Facet arthropathy without myelopathy 3. Lumbar postlaminectomy syndrome POSTOPERATIVE DIAGNOSIS: Lumbar radiculopathy 2-Lumbar spondylosis with Facet arthropathy without myelopathy PROCEDURE 1. Lumbar epidural steroid injection under fluoroscopic guidance at the L5-S1 level. 2. Lumbar epidurogram. ANESTHESIA: Local with 1% lidocaine 3 ml and IV sedation with Versed 2 mg ,and fentanyl 100 Mcg EBL: Minimal PROCEDURE INDICATION: The patient with low back pain and radiculitis symptoms unresponsive to conservative treatment. Fluoroscopy was used to optimize visualization of the needle placement and to maximize safety. Patient has a history of lumbar left laminectomy at L3-L4, L4-L5, L5-S1. He's tried conservative therapy currently on high-dose opiate therapy with the plan of hopefully reducing his opiate requirements with interventional procedures. Currently taking 100 g fentanyl patch as well as when necessary oral opiates. MRI of the lumbar spine showed hypertrophic ligamentum flavum and disc bulge at L2-L3 likely eliciting motion of his radicular pain into his bilateral hips PROCEDURE DESCRIPTION / TECHNIQUE: The patient was seen and identified in the preoperative area. Risks, benefits, complications including but not limited to infections ,bleeding ,allergic reaction to the medications ,nerve damage and not complete pain releife , and alternatives were discussed with the patient. The patient agreed to proceed with the procedure and signed the consent. IV was started, and vital signs were stable. Patient was taken to the OR and time out was completed. The patient was placed in the prone position on procedure table and a pillow was placed under the abdomen to reduce lumbar lordosis. The lumbosacral area was prepped and draped in the usual sterile fashion.ere closely monitored during the procedure. Conscious sedation was used during the procedure to decrease patients anxiety. Vital signs was monitered during the entire procedure. Using anterior-posterior fluoroscopy, the L2-L3 interlaminar space was identified and the skin over this site was marked and then infiltrated with 1% lidocaine subcutaneously. Subsequently, a 20-gauge Tuohy epidural needle was inserted and advanced toward the epidural space using the ``Loss of resistance technique and guided by AP and lateral fluoroscopy. Patient has an unknown ALLERGY to iodine therefore it was decided not to utilize it. after negative aspiration for blood and CSF and in the absence of paresthesias 6 ml mixture containing 40 mg/1 mL of Kenalog and 4 ml of preservative free Normal Saline was injected. Needle was withdrawn intact, skin was cleansed, and bandages were applied. COMPLICATIONS: None DISPOSITION / PLANS: The patient was placed in a supine position and transferred to the recovery area in a stable condition for observation. There was no evidence of lower extremity motor or sensory deficit after the procedure. Patient was discharged from the recovery room after meeting discharge criteria. Home discharge instructions were given to the patient by the staff. The patient was reexamined prior to discharge. Repeat injection at L2-L3 in 2-4 weeks..
[2022-09-09] MEDS ORDERED: IV FLUID CONTINUATION 1,000 ML IV ONE (11:02)
--- NOTE | 2022-09-09 11:12 | FL ---
EXAMINATION TYPE: FL guided pain mgmt statistic DATE OF EXAM: 09/09/2022 HISTORY: Fluoroscopy time 6 seconds of fluoroscopy provided. IMPRESSION: 1. Fluoroscopy time.
[2022-09-09 11:18] VITALS: BP 126/79; PULSE 60
== END 2022-09-09 11:30 | disposition home or self-care (01) ==
LOC: ORPAIN 09:40
PROVIDERS: ATTEND Anesthesiology
DX: M96.1 Postlaminectomy syndrome, not elsewhere classified (principal); M47.26 Other spondylosis with radiculopathy, lumbar region; Z91.013 Allergy to seafood
CPT/HCPCS: 62323; J2250; J3301; J3010; 99152

== ENCOUNTER 2022-10-12 08:43 | Day surgery (SDC) | payer MEDICARE, BC ==
[2022-10-07 14:51] VITALS: BMI 35.7
[~2022-10-12 08:43] MED LIST changes: -LIDOCAINE 1% (10MG/ML) FOR IV START INTRADERMA PRN
[2022-10-12 09:03] VITALS: RESP 16
[2022-10-12] MEDS ORDERED: MIDAZOLAM 2 MG/2 ML VIAL ONE (09:19)
[2022-10-12] MEDS ORDERED: fentaNYL (PF) 50 MCG/ML 2 ML AMP ONE (09:19)
[2022-10-12] MEDS ORDERED: methylPREDNISolone ACETATE 40 MG/ML 1 ML VIAL ONE (09:19)
[2022-10-12] MEDS ORDERED: IOPAMIDOL M200 10 ML VIAL ONE (09:19)
--- NOTE | 2022-10-12 09:34 | P.PCN ---
Date of Procedure: 10/12/22 Description of Procedure: PREOPERATIVE DIAGNOSIS: lumbar radiculopathy POSTOPERATIVE DIAGNOSIS: Lumbar radiculopathy PROCEDURE 1. Lumbar epidural steroid injection under fluoroscopic guidance at the L2-L3 level. 2. Lumbar epidurogram. Imaging: Fluoroscopy was used, images where saved to the medical record ANESTHESIA: Medication Administered by: Nurse Sedation Type: Moderate sedation per patient request Sedation Supervision start time: 921 Sedation Supervision end time: 933 EBL: Minimal PROCEDURE INDICATION: The patient with low back pain and radiculitis symptoms u nresponsive to conservative treatment. Fluoroscopy was used to optimize visualization of the needle placement and to maximize safety. PROCEDURE DESCRIPTION / TECHNIQUE: The patient was seen and identified in the preoperative area. Risks, benefits, complications including but not limited to infections ,bleeding ,allergic reaction to the medications, nerve damage and incomplete pain relief , as well as alternatives to the procedure were discussed with the patient. The patient agreed to proceed with the procedure and signed the consent. IV was started, and vital signs were stable. Patient was taken to the OR and time out was completed. The patient was placed in the prone position on procedure table and a pillow was placed under the abdomen to reduce lumbar lordosis. The lumbosacral area was prepped and draped in the usual sterile fashion. Vitals were closely monitored during the procedure. Using anterior-posterior fluoroscopy, the L 2-3 interlaminar space was identified and the skin over this site was marked and then infiltrated with 1% lidocaine subcutaneously. Subsequently, a 20-gauge Tuohy epidural needle was inserted and advanced toward the epidural space using the Loss of resistance technique and guided by AP and lateral fluoroscopy. The correct needle position in the epidural space was verified with the injection of 1 mL of Omnipaque 180 contrast to observe an acceptable epidurogram, after negative aspiration for blood and CSF and in the absence of paresthesias. Again after negative aspiration, a 3 ml mixture containing 40mg of depomedrol and 2 ml of preservative free Normal Saline was injected and a washout of epidurogram was seen. Needle was withdrawn intact, skin was cleansed, and bandages were applied. COMPLICATIONS: None DISPOSITION / PLANS: The patient was placed in a supine position and transferred to the recovery area in a stable condition for observation. There was no evide nce of lower extremity motor or sensory deficit after the procedure. Patient was discharged from the recovery room after meeting discharge criteria. Home discharge instructions were given to the patient by the staff. The patient was reexamined prior to discharge. The patient will follow up as directed.
[2022-10-12] MEDS ORDERED: IV FLUID CONTINUATION 1,000 ML IV ONE (09:37)
[2022-10-12 09:41] VITALS: TEMP 96
--- NOTE | 2022-10-12 09:56 | FL ---
EXAMINATION TYPE: FL guided pain mgmt statistic DATE OF EXAM: 10/12/2022 HISTORY: Fluoroscopy time 6 seconds of fluoroscopy provided. IMPRESSION: 1. Fluoroscopy time.
[2022-10-12 09:57] VITALS: BP 130/74; PULSE 68
== END 2022-10-12 10:08 | disposition home or self-care (01) ==
LOC: ORPAIN 08:43
PROVIDERS: ATTEND Hospitalist
DX: M54.16 Radiculopathy, lumbar region (principal); Z91.013 Allergy to seafood; Z88.6 Allergy status to analgesic agent
CPT/HCPCS: 62323; 99152; J2250; J1030; J3010; Q9966

== ENCOUNTER → 2022-11-01 | Outpatient (CLI) | payer MEDICARE, BC ==
[2022-11-01 12:09] VITALS: BP 148/67; PULSE 65; RESP 16; TEMP 98
--- NOTE | 2022-11-01 15:37 | P.PAINPG ---
PQRS Measure Charge Sheet Comment: A 67 yr old male w at side with a history of severe and chronic low back pain secondary to lumbar DDD and spondylosis with facet arthropathy without myelopathy presents today for evaluation s/p YUNIEL L2-L3. Pt states he experienced 0% pain relief x 3 wks s/p procedure. Pain level is currently at 6 /10 in intensity, constant, localized in the uppper lumbar spine, sharp in character w shooting towards the flanks. Pain is provoked by lifting. Pain is alleviated with medications (Percocet, Fentanyl), topicals, PT x 6 wks in March 2022, massage integrated w PT, repositioning and rest. Interventional pain procedures completed include YUNIEL L2-L3 Patient is currently on Percocet, Fentanyl Patient denies any side effects of the medication(s), denies excessive drowsiness or sleepiness, denies suicidal ideation and reports that the current pain medication is helping to control the pain and improve activities of daily living. Patient denies any motor or sensory deficits. Patient denies any fever or night sweats, denies any change in the bowel movements or urination. Physical Examination: -Constitutional: Cooperative. Not in acute distress . - Neurologic: Cranial nerve II to XII intact. No focal neurological deficits. - Psychatric: Alert & oriented x 3. Matching mood & appropriate affect. Judgmen t and insight intact. - Musculoskeletal: Cervical spine: Muscle bulk/ tone/ strength in the bilateral upper extremities normal Vertebral body tenderness to palpation over Spurling test positive Distraction test positive Facet loading test positive Thoracic spine Muscle bulk / tone/ strength in the bilateral paraspinal muscles normal Vertebral body tender to palpation over Facet loading test positive Lumbar spine: Motor bulk/ tone/ strength lower extremities , thigh and legs : 5/5 Deep tendon reflexes : Normal Knee Jerk. Normal Ankle Jerk . Vertebral body tenderness to palpation over Lumbar Facet Loading Test positive Straight Leg Raise: positive at 30 degrees right side/ left side Gaenslen's Test positive Sacral spine : Severe tenderness over the Sacroiliac joint: right side / left side Range of motion: Flexion of the lumbar spine <60 degrees Range of motion: Extension of the lumbar spine <20 degrees Gaenslen's Test positive Kareen test: positive right side / left side Thigh Thrust Test Sacral Thrust Test Assessment and plan: Chronic low back pain secondary to lumbar degenerative disc disease, spondylosis with facet arthropathy without myelopathy PT would like to call us and return to the clinic when pain is exa cerbated beyond what he can control w his current home modalities. All patient questions answered I have spent less than 30 minutes on patient care today. Dr Pedraza was available by phone for the evaluation of this patient. The time was used to review the medical records including relevant urine studies and Prescription history (MAPs), review of the available imaging, evaluation and examination of the patient, coordination of care with the medical staff and if applicable referring physicians, as well as creation of the medical record PQRS Narrative: Smoking Status Former smoker Hx Alcohol Use (MH) No Home Medications: Ambulatory Orders atenoloL [Tenormin] 25 mg PO DAILY 02/02/16 fentaNYL 100MCG/HR PATCH [Duragesic 100MCG/HR] 100 mcg TRANSDERM Q48H 02/02/16 oxyCODONE HCL [oxyCODONE HCL (IR)] 30 mg PO Q4H PRN 02/02/16 Finasteride [Proscar] 5 mg PO DAILY 10/13/19 Testosterone [Androgel 1% Gel Pump] 1 applic TOPICAL DAILY 10/13/19 hydroCHLOROthiazide [Hydrodiuril] 25 mg PO DAILY 10/13/19 Controlled Substance Measures - Controlled Substance Measures Is patient prescribed a controlled substance at discharge?: No
== END ==
LOC: PNWHC3 11:08
PROVIDERS: ATTEND Specialist
DX: M47.816 Spondylosis without myelopathy or radiculopathy, lumbar region (principal); M51.36 Other intervertebral disc degeneration, lumbar region; G89.29 Other chronic pain; Z88.8 Allergy status to other drugs, medicaments and biological substances; Z91.013 Allergy to seafood; Z87.891 Personal history of nicotine dependence
CPT/HCPCS: 99211

== ENCOUNTER → 2022-12-16 | Outpatient (CLI) | payer MEDICARE, BC ==
[2022-12-16 11:33] VITALS: BP 144/82; PULSE 71; RESP 18; TEMP 98.3
--- NOTE | 2022-12-16 14:19 | P.PAINPG ---
PQRS Measure Charge Sheet Comment: A 67 yr old male with a history of severe and chronic mid to low back pain secondary to thoraco lumbar DDD and spondylosis with facet arthropathy without myelopathy presents today for evaluation. Pt states he experienced 80% pain relief x 4 mo s/p BL RFA T11-T12, T12-L1 procedure. Pain level is provoked at 7 /10 in intensity, constant, localized in the mid to lower lumbar spine, achy in character without radiation of pain. Pain is provoked by over activity. Pain is alleviated with home exercises daily, heat, medications (Oxycodone, Lidoderm), repositioning and rest. Interventional pain procedures completed include BL RFA T11-T12, T12-L1 (Jul 2022), YUNIEL L2-L3 x2 (Oct 2022) Patient is currently on Oxycodone, Lidoderm from Dr Khalil Patient denies any side effects of the medication(s), denies excessive drowsiness or sleepiness, denies suicidal ideation and reports that the current pain medication is helping to control the pain and improve activities of daily living. Patient denies any motor or sensory deficits. Patient denies any fever or night sweats, denies any change in the bowel movements or urination. Physical Examination: -Constitutional: Cooperative. Not in acute distress . - Neurologic: Cranial nerve II to XII intact. No focal neurological deficits. - Psychatric: Alert & oriented x 3. Matching mood & appropriate affect. Judgment and insight intact. - Musculoskeletal: Cervical spine: Muscle bulk/ tone/ strength in the bilateral upper extremities normal Vertebral body tenderness to palpation over Spurling test positive Distraction test positive Facet loading test positive Thoracic spine Muscle bulk / tone/ strength in the bilateral paraspinal muscles normal Vertebral body tender to palpation over Facet loading test positive TTP over BL T11-T12, T12-L1 facets Lumbar spine: Motor bulk/ tone/ strength lower extremities , thigh and legs : 5/5 Deep tendon reflexes : Normal Knee Jerk. Normal Ankle Jerk . Vertebral body tenderness to palpation over Lumbar Facet Loading Test positive Straight Leg Raise: positive at 30 degrees right side/ left side Gaenslen's Test positive Sacral spine : Severe tenderness over the Sacroiliac joint: right side / left side Range of motion: Flexion of the lumbar spine <60 degrees Range of motion: Extension of the lumbar spine <20 degrees Gaenslen's Test positive Kareen test: positive right side / left side Thigh Thrust Test Sacral Thrust Test Assessment and plan: Chronic low back pain secondary to lumbar degenerative disc disease, spondylosis with facet arthropathy without myelopathy Recommendation of BL RFA T11-T12, T12-L1. Pt exhibited substantial pain relief w prior RFA procedure. Risks, benefits of procedure discussed and pt verbalized understanding. Denies anticoagulant use or medical history of diabetes. All patient questions answered I have spent less than 30 minutes on patient care today. Dr Pedraza was available by phone for the evaluation of this patient. The time was used to review the medical records including relevant urine studies and Prescription history (MAPs), review of the available imaging, evaluation and examination of the patient, coordination of care with the medical staff and if applicable referring physicians, as well as creation of the medical record PQRS Narrative: Smoking Status Former smoker Hx Alcohol Use (MH) No Home Medications: Ambulatory Orders atenoloL [Tenormin] 25 mg PO DAILY 02/02/16 fentaNYL 100MCG/HR PATCH [Duragesic 100MCG/HR] 100 mcg TRANSDERM Q48H 02/02/16 oxyCODONE HCL [oxyCODONE HCL (IR)] 30 mg PO Q4H PRN 02/02/16 Finasteride [Proscar] 5 mg PO DAILY 10/13/19 Testosterone [Androgel 1% Gel Pump] 1 applic TOPICAL DAILY 10/13/19 hydroCHLOROthiazide [Hydrodiuril] 25 mg PO DAILY 10/13/19 Controlled Substance Measures - Controlled Substance Measures Is patient prescribed a controlled substance at discharge?: No
== END ==
LOC: PNWHC3 09:59
PROVIDERS: ATTEND Specialist
DX: M47.816 Spondylosis without myelopathy or radiculopathy, lumbar region (principal); M51.36 Other intervertebral disc degeneration, lumbar region; G89.29 Other chronic pain; Z87.891 Personal history of nicotine dependence; Z91.013 Allergy to seafood; Z88.8 Allergy status to other drugs, medicaments and biological substances
CPT/HCPCS: 99211

== ENCOUNTER → 2023-03-04 | Day surgery (SDC) | payer BC, MEDICARE ==
[2023-03-02 14:46] VITALS: BMI 35.7
[~2023-03-04] MED LIST changes: +LIDOCAINE 1% (10MG/ML) FOR IV START INTRADERMA PRN
[2023-03-04 09:22] VITALS: BP 132/76; PULSE 88; RESP 16; TEMP 98.3
--- NOTE | 2023-03-04 09:52 | P.PN ---
Progress Note - Text Progress Note Date: 03/04/23 Patient was scheduled to have radiofrequency thermocoagulation of the thoracic median branches, and the preoperative holding area patient reported that he had coffee with the cream 2 hours ago, patient reported that he cannot do the procedure without sedation ,for this reason patient will be rescheduled, and the procedure will be canceled for today
== END ==
LOC: ORPAIN 09:09
PROVIDERS: ATTEND Specialist
DX: Z53.09 Procedure and treatment not carried out because of other contraindication (principal); M54.50 Low back pain, unspecified

== ENCOUNTER 2023-03-24 09:30 | Day surgery (SDC) | payer MEDICARE ==
[2023-03-22 13:38] VITALS: BMI 35.9
[2023-03-24] MEDS ORDERED: LACTATED RINGERS 1,000 ML IV SCH (09:38)
[2023-03-24] MEDS ORDERED: LIDOCAINE 1% (10MG/ML) FOR IV START INTRADERMA PRN (09:38)
[2023-03-24 09:53] VITALS: TEMP 98.1
[2023-03-24] MEDS ORDERED: MIDAZOLAM 2 MG/2 ML VIAL ONE (10:23)
[2023-03-24] MEDS ORDERED: ROPIVACAINE 5 MG/ML 20 ML AMPULE ONE (10:23)
[2023-03-24] MEDS ORDERED: methylPREDNISolone ACETATE 40 MG/ML 1 ML VIAL ONE (10:23)
[2023-03-24] MEDS ORDERED: fentaNYL (PF) 50 MCG/ML 2 ML AMP ONE (10:23)
--- NOTE | 2023-03-24 10:54 | P.PCN ---
Date of Procedure: 03/24/23 Procedure(s) Performed: PREOPERATIVE DIAGNOSIS: 1-Thoracic and Lumbar Spondylosis with Facet A rthropathy without myelopathy. POSTOPERATIVE DIAGNOSIS: 1-Thoracic and Lumbar Spondylosis with Facet Arthropathy without myelopathy. PROCEDURES : Bilateral Radiofrequency thermocoagulation, T11 , T12, and L1 medial branch, with fluoroscopic guidance (fluoroscopy images available in the radiology department) ( to denervate the facet joint at bilateral T11-12 ,and T12-L1 levels ). ANESTHESIA: Moderate sedation with Versed 2 mg and fentanyl 100 g Sedation started at 1029, ende at 1052 . EBL: Minimal PROCEDURE INDICATION: The patient with low back pain secondary to lumbar facet arthropathy who had more than 50% relief of her pain with previous diagnostic lumbar medial branch block with bupivacaine. PROCEDURE DESCRIPTION / TECHNIQUE: The patient was seen and identified in the preoperative area. Risks, benefits, complications, including but not limited to risk of infection ,bleeding , allergic reactions to the medications and no co mplete pain releife , and alternatives were discussed with the patient, the patient agreed to proceed with the procedure and signed the consent. IV was started. Vital signs remained stable throughout the procedure. Patient was taken to the OR and time out was completed. The patient was placed in the prone position on the procedure table. The lumber area was prepped and draped in the usual sterile fashion. . Vital signs were closely monitored during the procedure .IV sedation was used during the procedure to decrease patients anxiety. Using AP and then oblique fluoroscopy, the ``eye of the Diego dog corresponding to the connection between the superior and transverse articular processes of right T11,T12, and L1 were identified, marked, and localized with 1% lidocaine. Subsequently, a 18 [id number] radiofrequency cannula with a 10- mm active tip was advanced guided by fluoroscopy to each of the``eyes of the Diego dog at right T11,T12 ,L1. Each site then underwent sensory testing at 50 Hz and 0 to 1 volt and motor testing at 2.5 Hz and 0 to 3 volt with local stimulation, but no radicular symptoms down the legs. Thereafter each sites underwent radiofrequency thermocoagulation at 80 degrees celsius for 90 seconds after injecting 0.5 ml of PF Ropivacaine 1ml, then after the thermocoagulation done , 1 ml of the block solution containing Depo-Medrol 20 mg and 3 ml of Ropivacaine 0.5% was injected at the right T11,T12,L1 , levels after negative aspiration of CSF and blood and with no paresthesias. Cannulas were retracted while injecting lidocaine 1% until the needle is out. The same procedure was repeated at the level of Left T11,T12 ,L1 levels. At the end of the procedure, the skin was cleansed and bandages were applied. COMPLICATIONS: No acute complications. DISPOSITION / PLANS: The patient was placed in a supine position and transferred to the recovery area in a stable condition for observation and was discharged from the recovery room after meeting discharge criteria. Home discharge instructions given to the patient by the staff. The patient was reexamined prior to discharge. The patient will schedule a follow up in the clinic in 2-4 weeks.
[2023-03-24] MEDS ORDERED: IV FLUID CONTINUATION 600 ML IV ONE (11:01)
[2023-03-24 11:09] VITALS: RESP 20
[2023-03-24 11:16] VITALS: BP 112/77; PULSE 71
--- NOTE | 2023-03-24 11:23 | FL ---
EXAMINATION TYPE: FL guided pain mgmt statistic DATE OF EXAM: 03/24/2023 HISTORY: Fluoroscopy time Total dose area product (DAP) in mGy*cm? (.[id number] IMPRESSION: 1. Fluoroscopy time.
== END 2023-03-24 11:27 | disposition home or self-care (01) ==
LOC: ORPAIN 09:30
PROVIDERS: ATTEND Specialist
DX: M47.816 Spondylosis without myelopathy or radiculopathy, lumbar region (principal); M47.814 Spondylosis without myelopathy or radiculopathy, thoracic region; Z91.041 Radiographic dye allergy status; Z91.048 Other nonmedicinal substance allergy status; Z91.013 Allergy to seafood
CPT/HCPCS: 64633; 64634; 99152; 99153; J2250; J1030; J3010; J2795

== ENCOUNTER → 2023-04-14 | Outpatient (CLI) | payer MEDICARE ==
[2023-04-14 14:54] VITALS: BP 116/77; PULSE 83; RESP 18; TEMP 98.1
--- NOTE | 2023-04-14 15:22 | P.PAINPG ---
PQRS Measure Charge Sheet Comment: A 68 yr old male w at side with a history of severe and chronic mid back pain secondary to thoracic DDD and spondylosis with facet arthropathy without myelopathy presents today for evaluation s/p BL RFA T11-T12, T12-L1. Pt states he experienced 75% pain relief s/p procedure. Pain level is at 0/10 in i ntensity. Pain is provoked by frequent bending. Pain is alleviated with injections, PT integrated w massage x 6 wks in Feb 2022, medications, topical, repositioning and rest. Interventional pain procedures completed include BL RFA T11-L1 Patient is currently on Oxycodone, Fentanyl patches Patient denies any side effects of the medication(s), denies excessive drowsiness or sleepiness, denies suicidal ideation and reports that the current pain medication is helping to control the pain and improve activities of daily living. Patient denies any motor or sensory deficits. Patient denies any fever or night sweats, denies any change in the bowel movements or urination. Physical Examination: -Constitutional: Cooperative. Not in acute distress . - Neurologic: Cranial nerve II to XII intact. No focal neurological deficits. - Psychatric: Alert & oriented x 3. Matching mood & appropriate affect. Judgment and insight intact. - Musculoskeletal: Cervical spine: Muscle bulk/ tone/ strength in the bilateral upper extremities normal Vertebral body tenderness to palpation over Spurling test positive Distraction test positive Facet loading test positive TTP Thoracic spine Muscle bulk / tone/ strength in the bilateral paraspinal muscles normal Vertebral body tender to palpation over Facet loading test positive TTP Lumbar spine: Motor bulk/ tone/ strength lower extremities , thigh and legs : 5/5 Deep tendon reflexes : Normal Knee Jerk. Normal Ankle Jerk . Vertebral body tenderness to palpation over Lumbar Facet Loading Test positive Straight Leg Raise: positive at 30 degrees right side/ left side Gaenslen's Test positive Sacral spine : Severe tenderness over the Sacroiliac joint: right side / left side Range of motion: Flexion of the lumbar spine <60 degrees Range of motion: Extension of the lumbar spine <20 degrees Gaenslen's Test positive right side / left side Kareen test: positive right side / left side Thigh Thrust Test positive right side / left side Sacral Thrust Test positive right side / left side Assessment and plan: Chronic mid back pain secondary to thoracic DDD, spondylosis with facet arthropathy without myelopathy Pt tolerated procedure well. He will manage residual pain at home & may return to the clinic on an as needed basis. All questions answered. I have spent less than 30 minutes on patient care today. Dr Pedraza was available by phone for the evaluation of this patient. The time was used to review the medical records including relevant urine studies and Prescription history (MAPs), review of the available imaging, evaluation and examination of the patient, coordination of care with the medical staff and if applicable referring physicians, as well as creation of the medical record PQRS Narrative: Smoking Status Former smoker Hx Alcohol Use (MH) No Home Medications: Ambulatory Orders atenoloL [Tenormin] 25 mg PO DAILY 02/02/16 fentaNYL 100MCG/HR PATCH [Duragesic 100MCG/HR] 100 mcg TRANSDERM Q48H 02/02/16 oxyCODONE HCL [oxyCODONE HCL (IR)] 30 mg PO Q4H PRN 02/02/16 Finasteride [Proscar] 5 mg PO DAILY 10/13/19 Testosterone [Androgel 1% Gel Pump] 1 applic TOPICAL DAILY 10/13/19 hydroCHLOROthiazide [Hydrodiuril] 25 mg PO DAILY 10/13/19 Controlled Substance Measures - Controlled Substance Measures Is patient prescribed a controlled substance at discharge?: No
== END ==
LOC: PNWHC3 13:33
PROVIDERS: ATTEND Specialist
DX: M51.34 Other intervertebral disc degeneration, thoracic region (principal); M47.814 Spondylosis without myelopathy or radiculopathy, thoracic region; G89.29 Other chronic pain; Z87.891 Personal history of nicotine dependence; Z91.013 Allergy to seafood; Z88.6 Allergy status to analgesic agent
CPT/HCPCS: 99211

== ENCOUNTER → 2023-07-25 | Outpatient (CLI) | payer MEDICARE ==
[2023-07-25 15:54] LABS: Partial Thromboplastin Time 24.4 sec (22.0-30.0); Prothrombin Time 10.2 sec (9.0-12.0)
[2023-07-25 20:38] LABS: ALT 15 U/L (10-49); AST 19 U/L (14-35); Albumin 4.7 d/dL (3.8-4.9); Albumin/Globulin Ratio 2.04 Ratio (1.60-3.17); Alkaline Phosphatase 86 U/L (41-126); BUN/Creat Ratio 10.33 Ratio (12.00-20.00); Blood Urea Nitrogen 12.4 mg/dL (9.0-27.0); Carbon Dioxide 29.2 mmol/L (21.6-31.8); Chloride 100 mmol/L (96-109); Globulin 2.3 d/dL (1.6-3.3); Glucose 103 mg/dL (70-110); Potassium 4.3 mmol/L (3.5-5.5); Sodium 140 mmol/L (135-145); Total Bilirubin 0.3 mg/dL (0.3-1.2)
[2023-07-25 20:42] LABS: Appearance,Urine Clear (Clear); Bilirubin,Urine Negative (Negative); Blood,Urine Negative (Negative); Color,Urine Yellow (Yellow); Ketones,Urine Negative (Negative); Nitrite,Urine Negative (Negative); Specific Gravity,Urine 1.024 (1.001-1.030)
[2023-07-25 20:56] LABS: HCT 43.6 % (39.6-50.0); HGB 13.6 d/dL (13.0-17.0); MCH 27.6 pg (27.0-32.0); MCHC 31.2 d/dL (32.0-37.0); MCV 88.6 FL (80.0-97.0); Mean Platelet Volume 9.4 FL (9.5-12.2); NRBC Per 100 WBC 0 X 10*3/uL (0.00-0.01); Platelet Count 281 X 10*3/uL (140-440); RBC 4.92 X 10*6/uL (4.40-5.60); RDW 13.8 % (11.5-14.5); WBC 9.11 X 10*3/uL (4.50-10.00)
== END | disposition home or self-care (01) ==
LOC: LABPAT 14:34
PROVIDERS: ATTEND Orthopaedic Surgery Sports Medicine
DX: Z01.818 Encounter for other preprocedural examination (principal); M19.012 Primary osteoarthritis, left shoulder; R00.1 Bradycardia, unspecified
CPT/HCPCS: 80053; 81003; 85027; 85610; 85730; 87070; 93005

== ENCOUNTER → 2023-07-27 | Outpatient (CLI) | payer MEDICARE ==
--- NOTE | 2023-07-27 14:27 | CT ---
EXAMINATION TYPE: CT shoulder LT wo con CT DLP: 406 mGycm, Automated exposure control for dose reduction was used. DATE OF EXAM: 07/27/2023 2:18 PM COMPARISON: None CLINICAL INDICATION:Male, 68 years old with history of M19.012 PRIMARY OSTEOARTHRITIS, LEFT SHOULDER; PHH, left shoulder pain, surgical planning TECHNIQUE: Axial images were obtained of the left shoulder without the use of IV contrast. Additiona l coronal and sagittal reformatted images and soft tissue and bone window were obtained for review. 3 -D reconstruction was created on a separate workstation. FINDINGS: There is no evidence of fracture, subluxation, or dislocation. There is joint space narrow ing with sclerosis and subchondral cystic changes. Marginal ossified ptosis identified. No significan t soft tissue swelling. Small joint effusion. No focal muscular atrophy or edema is identified. No ra diopaque foreign body identified. Degenerative changes of the cervical spine. Visualized left lung is clear. IMPRESSION: Severe left shoulder osteoarthritic changes.
== END | disposition home or self-care (01) ==
LOC: RADCTMAIN 13:42
PROVIDERS: ATTEND Orthopaedic Surgery Sports Medicine
DX: Z01.818 Encounter for other preprocedural examination (principal); M19.012 Primary osteoarthritis, left shoulder

== ENCOUNTER 2023-08-11 05:39 | Day surgery (SDC) | payer MEDICARE ==
[2023-08-09 14:15] VITALS: BMI 35.7
[~2023-08-11 05:39] MED LIST changes: +ACETAMINOPHEN TAB 500 MG TAB PO PRN; +DEXAMETHASONE SOD PHOSPHATE 4 MG/ML 1 ML VIAL IV ONE; +GABAPENTIN 300 MG CAP PO PRN; +HYDROmorphone 0.5 MG/0.5 ML SYRINGE IVP PRN; -LACTATED RINGERS 1,000 ML IV SCH; -LIDOCAINE 1% (10MG/ML) FOR IV START INTRADERMA PRN; +MELOXICAM 7.5 MG TAB PO PRN; +ONDANSETRON 4 MG/2 ML VIAL IVP ONE; +ONDANSETRON 4 MG/2 ML VIAL IVP PRN; +TRANEXAMIC 1,000 MG/100ML-NACL 1,000 MG in SALINE 1 100ML.BAG IVPB PRN
[2023-08-11] MEDS: LACTATED RINGERS 1,000 ML IV SCH ×3 (06:20→16:05)
[2023-08-11] MEDS ORDERED: LIDOCAINE 1% (10MG/ML) FOR IV START INTRADERMA ONE (06:20)
[2023-08-11] MEDS ORDERED: MIDAZOLAM 2 MG/2 ML VIAL IVP ONE (06:43)
[2023-08-11] MEDS ORDERED: fentaNYL (PF) 50 MCG/ML 2 ML AMP IVP ONE (06:43)
[2023-08-11] MEDS ORDERED: WATER FOR INJECTION, STERILE 10 ML VIAL IV ONE (07:15)
[2023-08-11] MEDS ORDERED: PHENYLEPHRINE-0.9% NACL SYG 1,000 MCG/10 ML SYRINGE ONE (07:15)
[2023-08-11] MEDS ORDERED: GLYCOPYRROLATE 0.2 MG/ML 2 ML VIAL ONE (07:15)
[2023-08-11] MEDS ORDERED: ePHEDrine 50 MG/ML 1 ML VIAL ONE (07:15)
[2023-08-11] MEDS ORDERED: ROCURONIUM 10 MG/ML (5 ML VIAL) IV ONE (07:15)
[2023-08-11] MEDS ORDERED: MIDAZOLAM 2 MG/2 ML VIAL ONE (07:15)
[2023-08-11] MEDS ORDERED: NEOSTIGMINE 1 MG/ML 10 ML VIAL ONE (07:15)
[2023-08-11] MEDS ORDERED: fentaNYL (PF) 50 MCG/ML 2 ML AMP ONE (07:15)
[2023-08-11] MEDS ORDERED: TRANEXAMIC 1,000 MG/100ML-NACL PREMIX BAG ONE (07:15)
[2023-08-11] MEDS ORDERED: PROPOFOL 10 MG/ML 20 ML VIAL IV ONE (07:15)
[2023-08-11] MEDS ORDERED: SUCCINYLCHOLINE CHLORIDE 200 MG/10 ML VIAL IV ONE (07:15)
[2023-08-11] MEDS ORDERED: ROPIVACAINE 5 MG/ML 30 ML VIAL ONE (07:15)
[2023-08-11] MEDS ORDERED: ceFAZolin 3,000 MG in SODIUM CHLORIDE 0.9% IRRIGATIO 3,000 ML IRRIGATION ONE (07:50)
[2023-08-11] MEDS ORDERED: VANCOMYCIN 1,000 MG VIAL MISCELLANE ONE (08:08)
[2023-08-11] MEDS ORDERED: LACTATED RINGERS 1,000 ML IV ONE (08:45)
[2023-08-11] MEDS ORDERED: SENNOSIDES-DOCUSATE SODIUM 1 EACH TAB PO PRN (09:14)
[2023-08-11] MEDS ORDERED: METOCLOPRAMIDE 5 MG/ML 2 ML VIAL IVP PRN (09:14)
[2023-08-11] MEDS ORDERED: ONDANSETRON 4 MG/2 ML VIAL IVP PRN (09:14)
[2023-08-11] MEDS ORDERED: HYDROmorphone 0.5 MG/0.5 ML SYRINGE IVP PRN ×2 (09:14)
[2023-08-11] MEDS ORDERED: PROCHLORPERAZINE SUPPOSITORY 25 MG SUPP RECTAL PRN (09:14)
[2023-08-11] MEDS ORDERED: diphenhydrAMINE 25 MG CAP PO PRN (09:14)
[2023-08-11] MEDS ORDERED: oxyCODONE-APAP 7.5-325MG 1 EACH TAB PO PRN (09:17)
--- NOTE | 2023-08-11 09:43 | OP ---
OPERATIVE REPORT DATE OF SERVICE : 08/11/2023 SUPERVISOR SANDING: Abhay Stewart. PREOPERATIVE DIAGNOSIS: Left shoulder osteoarthrosis. POSTOPERATIVE DIAGNOSIS: Left shoulder osteoarthrosis. PROCEDURE PERFORMED: Left reverse total shoulder arthroplasty. ANESTHESIA: General endotracheal. ESTIMATED BLOOD LOSS: 100 mL. DRAINS: None. COMPLICATIONS: None apparent. DISPOSITION: Postanesthesia care unit. INDICATIONS: Mr. Arriaga is a very pleasant 68-year-old gentleman with longstanding left shoulder pain. Workup including x-rays and CT revealed advanced osteoarthrosis of the left shoulder. At this point, it was felt that he has failed conservative management, and he would like to proceed with operative intervention. Risks of the procedure were discussed with him in detail. These risks include but are not limited to, risk of infection, nerve damage, bleeding, pain, instability in the shoulder, loosening of the implants, and deep infection. There is also a small risk of deep vein thrombosis which could lead to fatal pulmonary embolism. The patient understood these risks. All of his questions with regard to the risks of procedure were answered to his satisfaction. Appropriate informed consent was obtained. DESCRIPTION OF PROCEDURE: The patient was identified in the preoperative holding area. Surgical site was marked by both the patient and myself. He was given 2 g of Ancef IV for prophylactic purposes. He was then transported to the operative suite. He was placed supine on the operating room table. A general anesthetic was then administered and dosed per the Anesthesia Department without apparent complication. Examination under anesthesia was then performed of the left shoulder. He had a passive elevation to 140 degrees. External rotation to side was 30 degrees. The patient was then placed into the beach chair position well-padded in preparation for surgery. Great care was taken to ensure that his neck was in neutral alignment well-padded and maintained that way throughout the operative procedure. Great care was also taken to ensure that his legs were appropriately padded as well. The patient's left upper extremity was then prepped and draped in the usual sterile fashion. A standard surgical pause was undertaken to ensure that we were operating on the correct site and that appropriate preoperative antibiotics had been given. All staff in the room were in agreement, and we proceeded. The acromion, AC joint, clavicle, and coracoid were marked with a surgical pen. A planned incision starting at the level of clavicle and extending distally over the deltopectoral interval approximately 1 cm lateral to the coracoid was marked with a surgical pen. An incision was then made with a 10 blade scalpel. Dissection was carried down sharply to the deltoid fascia. The deltopectoral was then identified at the level of the clavicle. A small band retractor was then placed onto the proximal deltoid. I then released the deltoid fascia on the lateral aspect of the cephalic vein. The vein was preserved and left in its bed medially. The cephalic vein was protected throughout the entire case. I then identified the clavipectoral fascia. This was incised proximally to the level of the coracoacromial ligament. The coracoacromial ligament was then left intact. I then used my finger to spread the interval between the conjoint tendon and the subscapularis. I felt for the axillary nerve which was readily palpable. I then cleared the subacromial and subdeltoid spaces of bursal and scar tissue. I then utilized a Brown retractor to hold the deltoid and expose the humeral head. I then proceeded to release the subscapularis in the anterior inferior shoulder capsule. The rotator cuff was inspected. The rotator cuff had a fairly large tear of the supraspinatus to the anterior aspect of the infraspinatus. The rotator interval was identified. The course of the biceps tendon was also identified. I then released the rotator interval. It was released at the base of the coracoid and then out laterally. The subscapularis and the capsule were released intertendinously. The subscapularis and capsule release extended distally in a lazy-S fashion approximately 1 cm medial to the biceps tendon. I then continued to release the capsule along the inferior neck in a vertical fashion to approximately the 6 o'clock position. Great care was taken to ensure that the capsule was always visualized as it was released as to avoid injuring the axillary nerve. I then brought a Sherman environmental engineering assistant with the arm externally rotated and abducted. I continued to release the capsule inferomedially to approximately the 4 o'clock position. The inferior osteophytes were now removed as well. This was done with a rongeur. I then proceeded with preparation of the proximal humerus. I removed all the goat's higgins osteophytes. I then removed the subchondral plate from the superior aspect of the humeral head utilizing a large rongeur. I then used a starting reamer to gain access to the humeral canal. This was approximately 1 cm medial to the rotator cuff insertion and 1 cm posterior to the bicipital groove. I then prepared the humeral canal with hand reaming. I started with a 6 mm reamer and progressed in 1 mm increments until firm resistance was encountered at 10 mm. The reamer handle was then left in place. I then utilized a humeral resection guide. This was set at 30 degrees of retrotorsion. The cutting block was set 1 to 2 mm above the rotator cuff insertion. I then proceeded to osteotomize the humeral head with an oscillating saw. I removed the resection guide and then completed the osteotomy. I then proceeded to trial the stem placement. A trial size 10 was then broached in the canal starting with a 6 mm broach and then continually increasing up to a 10 mm broach. The 10 mm trial stem was then left in place. I made a decision at this point to proceed with a reverse shoulder arthroplasty due to the rotator cuff tearing. At this point, I did release the biceps tendon. This was tenotomized at the level of the superior labrum. I did tenodese the biceps tendon into the groove with 0 Vicryl interrupted sutures. This was done to the surrounding soft tissue of the groove. I then used a bone hook to pull the humerus out laterally. I inspected the joint for any loose bodies. The Bhattman retractor was then placed on the posterior glenoid rim. The arm was placed in approximately 80 degrees of abduction and in slight flexion on the Sherman stand. I then proceeded to remove the hypertrophic labrum to definitively identify the actual glenoid. I then utilized the mini base plate guide. The starting pin was then placed in the center of the glenoid in approximately 10 degrees of inferior tilt. I then proceeded to ream the glenoid with a Mini baseplate reamer. This was taken down as minimal as possible as to preserve as much subchondral bone as possible with the reaming. I then had the business process representative open a Biomet Mini baseplate. This was then impacted into the real glenoid. The starting pin was removed. I measured for length, and a 30 mm central screw was then placed. The screw had excellent purchase in bone. I was able to rotate the scapula through the screwdriver when the screw was firmly seated. I then proceeded to place the peripheral locking screws. The inferior screw was a 20 mm screw, and the anterior and posterior screws were 15 mm screws. I did not place a superior locking screw. I then had the business process representative open a 36 mm glenosphere. It was slightly offset inferiorly. The Burnham tapers were dried, and then the real glenosphere was then impacted into the real base plate. I then proceeded to trial. I placed a standard tray, standard poly trial. The shoulder was mildly difficult reduction. It was very stable. There was no impingement noted. It was taken through a full range of motion with no impingement noted. We then carefully re-dislocated the shoulder. I made a decision to proceed with the standard tray and standard polyethylene. I had the business process representative open a Biomet Mini 10 mm stem, a standard tray, and a standard poly for a 36 mm glenosphere. The wound was then thoroughly irrigated with sterile saline solution with antibiotic added via pulse lavage. I then placed Irrisept antiseptic solution which was allowed to sit for a few minutes. I then placed the real stem in approximately 30 degrees of retrotorsion. The Burnham taper was dried, and then the polyethylene and tray were then impacted on the dried Burnham taper. The shoulder was again reduced. Again, it was a mildly difficult reduction. It was very stable. The conjoint tendon did not have any undue tension. I felt for the axillary nerve at this point. It was readily palpable and intact. At this point, we proceeded with closure. The wound was again thoroughly irrigated with sterile saline solution with antibiotic added via pulse lavage. I then used the remainder of the Irrisept solution for a few minutes. Approximately 500 mg of vancomycin powder was then placed deep. The deltopectoral interval was closed with 0 Vicryl interrupted suture. The subcutaneous tissue was irrigated with the sterile saline solution with antibiotic added. The remaining 500 mg of vancomycin powder was then placed subcutaneously. The subcutaneous tissue was then closed with 2-0 Vicryl interrupted suture, and the skin was closed with a running 3-0 Quill suture. Dermabond was then applied to the incision. Sterile dressing was applied, and the patient's left upper extremity was placed in a standard sling. All sponge and needle counts were deemed correct prior to closure. The patient tolerated the procedure without apparent complication. He was transferred to the recovery room in stable condition. MMODL / IJN: [id number] /
--- NOTE | 2023-08-11 10:46 | XR ---
EXAMINATION TYPE: XR shoulder limited LT DATE OF EXAM: 08/11/2023 COMPARISON: CT scan 07/27/2023 HISTORY: Postop left shoulder TECHNIQUE: Three views are submitted. FINDINGS: Single view submitted demonstrates postsurgical change involving the left shoulder. Soft tissue edema small amount of soft tissue air. Alignment appears anatomic. IMPRESSION: 1. Postoperative change
--- NOTE | 2023-08-11 11:20 | P.ANPRN ---
Procedure Note - Anesthesia - Nerve Block Performed Left Interscalene Single Time Out Performed: Yes ([id number]) Date of Procedure: 08/11/23 Procedure Start Time: 06:44 Procedure Stop Time: 06:49 Location of Patient: PreOp Indication: Acute Post-Operative Pain, Requested by Surgeon Specifically requested for management of pain by DrKaterina: Soto Mejias Sedation Type: Sedate with meaningful contact maintained Preparation: Sterile Prep Position: Supine Catheter: None Needle Types: Pajunk Needle Gauge: 21 Ultrasound used to visualize needle placement: Yes Ultrasound used to observe medication spread: Yes Injectate: 0.5% Ropivacaine (see comment for volume) (30cc) Blood Aspirated: No Pain Paresthesia on Injection Noted: No Resistance on Injection: Normal Image Stored and Saved: Yes Events: Uneventful and Well Tolerated
--- NOTE | 2023-08-11 21:56 | P.CONS ---
History of Present Illness - Reason for Consult Consult date: 08/11/23 Medical management - Chief Complaint Status post left total shoulder arthroplasty - History of Present Illness Patient is a 68-year-old male with a known history of hypertension, chronic low back pain, BPH and GERD and prior history of bariatric surgery who was admitted to the hospital for left total arthroplasty. Patient tolerated the procedure very well. Currently denies any complaints of pain. Patient did have nerve block. Otherwise denies any complaints of chest pain or shortness of breath. No headache or dizziness or lightheadedness. No fever no chills. No cough or sputum production. Postoperatively blood pressure went down to 95/65 and pulse 95 respiration 18 pulse ox 94% on room air. Otherwise patient denies any leg swelling. Laboratory data is not available at this time. Review of Systems Constitutional: Patient denies any fever or chills . no Generalized weakness. Abdomen: Patient denied any nausea or vomiting or abd. pain Cardiovascular: Patient denies any chest pain or short of breath no palpitations. Respiratory: patient denied any cough . no sputum production. No shortness of breath Neurologic: Patient denied any numbness or tingling headache. Musculoskeletal: Patient denies any complaints of joint swelling or deformity. Skin: Negative Psychiatric: Negative Endocrine: No heat or cold intolerance. No recent weight gain. Genitourinary: No dysuria or hematuria. All other 14 point ROS negative except the above Past Medical History Past Medical History: GERD/Reflux, Hypertension, Prostate Disorder Additional Past Medical History / Comment(s): chronic lower back pain radiating to rt leg, BPH History of Any Multi-Drug Resistant Organisms: None Reported Past Surgical History: Back Surgery, Bariatric Surgery, Joint Replacement, Orthopedic Surgery Additional Past Surgical History / Comment(s): BLE knee replacement, BLE knee scopes, BUE carpal tunnel. Hx. of having spinal cord stimulator trial approx-no longer has,lap band-fluid is present. EGD/COLONOSCOPY Past Anesthesia/Blood Transfusion Reactions: No Reported Reaction Additional Past Anesthesia/Blood Transfusion Reaction / Comm: no hx blood transfusion Smoking Status: Former smoker - Past Family History Mother Family Medical History: No Reported History Medications and Allergies Home Medications Medication Instructions Recorded Confirmed Type atenoloL [Tenormin] 25 mg PO QAM 02/02/16 08/09/23 History fentaNYL 100MCG/HR PATCH 100 mcg TRANSDERM Q48H 02/02/16 08/09/23 History [Duragesic 100MCG/HR] oxyCODONE HCL [oxyCODONE HCL (IR)] 30 mg PO Q4H PRN 02/02/16 08/09/23 History Finasteride [Proscar] 5 mg PO QAM 10/13/19 08/09/23 History Testosterone [Androgel 1% Gel Pump] 1 applic TOPICAL DAILY 10/13/19 08/09/23 History hydroCHLOROthiazide [Hydrodiuril] 25 mg PO DAILY 10/13/19 08/09/23 History Tamsulosin HCl [Flomax] 0.4 mg PO QAM 08/09/23 08/09/23 History Allergies Allergy/AdvReac Type Severity Reaction Status Date / Time SHEILA Inhibitors Allergy Swelling Verified 08/09/23 14:03 shellfish derived [Shellfish] Allergy Rash/Hives Verified 08/09/23 14:03 Physical Exam Vitals: Vital Signs Temp Pulse Resp BP Pulse Ox 08/11/23 13:57 100/62 08/11/23 11:30 68 14 115/62 93 L 08/11/23 11:15 80 18 119/71 95 08/11/23 11:00 93 15 96/68 96 08/11/23 10:30 85 15 110/53 93 L 08/11/23 10:15 85 15 113/55 97 08/11/23 09:53 90 17 142/68 96 08/11/23 09:38 81 15 123/61 98 08/11/23 09:22 96.8 F L 106 H 18 139/66 96 08/11/23 06:55 87 16 118/78 99 08/11/23 06:20 97.8 F 89 16 143/66 97 Intake and Output 08/10/23 08/11/23 08/11/23 22:59 06:59 14:59 Intake Total 200 1351 Output Total 100 Balance 200 1251 Intake: IV 200 1351 Output: Estimated Blood Loss 100 Other: Weight 110.3 kg 110.3 kg PHYSICAL EXAMINATION: Patient is lying in the bed comfortably, no acute distress, awake alert and oriented.. HEENT: Normocephalic. Neck is supple. Pupils reactive. Nostrils clear. Oral cavity is moist. Neck reveals no JVD, carotid bruits, or thyromegaly. CHEST EXAMINATION: Trachea is central. Symmetrical expansion. Lung alfonso clear to auscultation and percussion. CARDIAC: Normal S1, S2 with no gallops. No murmurs ABDOMEN: Soft. Bowel sounds present. Nontender. No organomegaly. No abdominal bruits. Extremities: reveal no edema. No clubbing or cyanosis Neurologically awake, alert, oriented x3 with well-coordinated movements. No focal deficits noted Skin: No rash or skin lesions. Psychiatric: Coperative. Nonsuicidal, Musculoskeletal: No joint swelling or deformity. Left shoulder/arm sling in place and surgical site is bandaged. Assessment and Plan Assessment: Status post left shoulder total arthroplasty. Postoperative day 0 Hypertension. Patient is currently hypotensive. Blood pressure medications on hold. Chronic low back pain Obesity with a BMI 37.0 BPH GERD Prior history of smoking DVT prophylaxis Plan: Patient will be continued on pain management, bowel regimen and encourage incentive spirometry. Continue with atenolol 25 mg every morning and hydrochlorothiazide is on hold due to low blood pressure. Continue with Flomax and Proscar. CBC BMP tomorrow. We will continue to follow and further recommendations based on the clinical course. Thank you for your consult.
[2023-08-11] MEDS: oxyCODONE-APAP 7.5-325MG 1 EACH TAB PO PRN (23:28)
[2023-08-12] MEDS ORDERED: HYDROmorphone 1 MG/ML 1 ML SYRINGE IVP STA (00:51)
[2023-08-12] MEDS: LACTATED RINGERS 1,000 ML IV SCH ×3 (02:39→15:41)
[2023-08-12] MEDS: HYDROmorphone 1 MG/ML 1 ML SYRINGE IVP PRN ×7 (04:09→23:33)
[2023-08-12] MEDS: TAMSULOSIN 0.4 MG CAP.ER.24H PO SCH (08:04)
[2023-08-12] MEDS: FINASTERIDE 5 MG TAB PO SCH (08:04)
[2023-08-12] MEDS: atenoloL 25 MG TAB PO SCH (08:04)
[2023-08-12] MEDS: oxyCODONE-APAP 7.5-325MG 1 EACH TAB PO PRN (08:04)
[2023-08-12 10:47] LABS: Basophils # (A) 0.02 X 10*3/uL (0.00-0.10); Basophils % (A) 0.2 %; Eosinophils # (A) 0.06 X 10*3/uL (0.04-0.35); Eosinophils % (A) 0.5 %; HCT 37.5 % (39.6-50.0); HGB 12.1 d/dL (13.0-17.0); Lymphocytes # (A) 2.46 X 10*3/uL (0.90-5.00); Lymphocytes % (A) 20.7 %; MCH 28.3 pg (27.0-32.0); MCHC 32.3 d/dL (32.0-37.0); MCV 87.8 FL (80.0-97.0); Mean Platelet Volume 9.3 FL (9.5-12.2); Monocytes # (A) 1.47 X 10*3/uL (0.20-1.00); Monocytes % (A) 12.4 %; NRBC Per 100 WBC 0 X 10*3/uL (0.00-0.01); Neutrophils # (A) 7.81 X 10*3/uL (1.80-7.70); Neutrophils % (A) 65.6 %; Platelet Count 254 X 10*3/uL (140-440); RBC 4.27 X 10*6/uL (4.40-5.60); RDW 13.2 % (11.5-14.5); WBC 11.89 X 10*3/uL (4.50-10.00)
[2023-08-12 11:04] LABS: BUN/Creat Ratio 13.83 Ratio (12.00-20.00); Blood Urea Nitrogen 16.6 mg/dL (9.0-27.0); Calcium 9.5 mg/dL (8.7-10.3); Carbon Dioxide 27.1 mmol/L (21.6-31.8); Chloride 99 mmol/L (96-109); Glucose 129 mg/dL (70-110); Potassium 4.2 mmol/L (3.5-5.5); Sodium 138 mmol/L (135-145)
[2023-08-12] MEDS: hydroCHLOROthiazide 25 MG TAB PO SCH (13:08)
[2023-08-12] MEDS ORDERED: oxyCODONE-APAP 10-325MG 1 EACH TAB PO PRN (13:09)
[2023-08-12] MEDS: oxyCODONE ER 20 MG TAB.ER.12H PO SCH ×2 (13:22→21:28)
[2023-08-12] MEDS: oxyCODONE-APAP 10-325MG 1 EACH TAB PO PRN ×2 (14:13→19:53)
--- NOTE | 2023-08-12 15:21 | P.PN ---
Subjective Progress Note Date: 08/12/23 Principal diagnosis: Left TSA Patient is seen at bedside this morning. He is postop day #1 from left reverse total shoulder arthroplasty. He has pain at the surgical site as expected and is struggling somewith pain control due to his opiod tolerance. He denies any other new complaints. He denies numbness, tingling or calf pain. Review of systems is negative for fever, chills, chest pain, shortness of breath or other Objective - Vital Signs Vital signs: Vital Signs Temp 98.8 F 08/12/23 07:03 Pulse 92 08/12/23 07:03 Resp 18 08/12/23 07:03 BP 169/90 08/12/23 13:08 Pulse Ox 96 08/12/23 07:03 FiO2 Intake & Output 08/11/23 08/12/23 08/12/23 18:59 06:59 18:59 Intake Total 1351 Output Total 100 Balance 1251 Weight 110.3 kg Intake: IV 1351 Output: Estimated Blood Loss 100 Other: # Voids 3 0 # Bowel Movements 0 - Exam Inspection reveals a benign surgical wound. There is no active bleeding or drainage. Neurovascular status is intact throughout the upper extremity with motor and sensation fully intact. Calves are soft and nontender. 2+ radial pulse and less than 2 second cap refill is present. - Constitutional General appearance: Present: no acute distress - Labs CBC & Chem 7: 08/12/23 05:59 08/12/23 05:59 Labs: Abnormal Lab Results - Last 24 Hours (Table) 08/12/23 08/12/23 Range/Units 05:59 05:59 WBC 11.89 H (4.50-10.00) X 10*3/uL RBC 4.27 L (4.40-5.60) X 10*6/uL Hgb 12.1 L (13.0-17.0) d/dL Hct 37.5 L (39.6-50.0) % MPV 9.3 L (9.5-12.2) FL Neutrophils # 7.81 H (1.80-7.70) X 10*3/uL Monocytes # 1.47 H (0.20-1.00) X 10*3/uL Glucose 129 H (70-110) mg/dL Assessment and Plan (1) Status post total shoulder arthroplasty Narrative/Plan: He will continue with routine postop orthopedic protocol including pain management, wound care, PT, DVT prophylaxis and medical management. Will adjust pain meds to try to make him more comfortable. Expect that he will transfer to home in next 1-2 days Current Visit: Yes Status: Acute Priority: Medium Code(s): Z96.619 - PRESENCE OF UNSPECIFIED ARTIFICIAL SHOULDER JOINT SNOMED Code(s): 859971327 Time with Patient: Less than 30
--- NOTE | 2023-08-12 22:36 | P.PN ---
Subjective Progress Note Date: 08/12/23 Patient is a 68-year-old male with a known history of hypertension, chronic low back pain, BPH and GERD and prior history of bariatric surgery who was admitted to the hospital for left total arthroplasty. Patient tolerated the procedure very well. Currently denies any complaints of pain. Patient did have nerve block. Otherwise denies any complaints of chest pain or shortness of breath. No headache or dizziness or lightheadedness. No fever no chills. No cough or sputum production. Postoperatively blood pressure went down to 95/65 and pulse 95 respiration 18 pulse ox 94% on room air. Otherwise patient denies any leg swelling. Laboratory data is not available at this time. 08/12/2023 Patient is currently sitting on side of the bed. Awake alert and oriented x3. Left shoulder pain. Fairly controlled with medications. No complaints of nausea or vomiting. No headache or dizziness or lightheadedness. Patient was started back on hydrochlorothiazide. Patient is also on atenolol at home. Which is being continued. No nausea vomiting or abdominal pain or diarrhea. No cough or sputum production Laboratory data showed WBC 11.8 hemoglobin 12.1 and platelets 254. Blood sugar is 129 potassium 4.2. Current medications reviewed. Objective - Vital Signs Vital signs: Vital Signs Temp 98.8 F 08/12/23 07:03 Pulse 92 08/12/23 07:03 Resp 18 08/12/23 07:03 BP 143/85 08/12/23 07:03 Pulse Ox 96 08/12/23 07:03 FiO2 Intake & Output 08/11/23 08/12/23 08/12/23 18:59 06:59 18:59 Intake Total 1351 Output Total 100 Balance 1251 Weight 110.3 kg Intake: IV 1351 Output: Estimated Blood Loss 100 Other: # Voids 3 0 # Bowel Movements 0 - Exam PHYSICAL EXAMINATION: Patient is lying in the bed comfortably, no acute distress, awake alert and oriented.. HEENT: Normocephalic. Neck is supple. Pupils reactive. Nostrils clear. Oral cavity is moist. Neck reveals no JVD, carotid bruits, or thyromegaly. CHEST EXAMINATION: Trachea is central. Symmetrical expansion. Lung alfonso clear to auscultation and percussion. CARDIAC: Normal S1, S2 with no gallops. No murmurs ABDOMEN: Soft. Bowel sounds present. Nontender. No organomegaly. No abdominal bruits. Extremities: reveal no edema. No clubbing or cyanosis Neurologically awake, alert, oriented x3 with well-coordinated movements. No focal deficits noted Skin: No rash or skin lesions. Psychiatric: Coperative. Nonsuicidal, Musculoskeletal: No joint swelling or deformity. Left shoulder/arm sling in place and surgical site is bandaged. - Labs CBC & Chem 7: 08/12/23 05:59 08/12/23 05:59 Labs: Abnormal Lab Results - Last 24 Hours (Table) 08/12/23 08/12/23 Range/Units 05:59 05:59 WBC 11.89 H (4.50-10.00) X 10*3/uL RBC 4.27 L (4.40-5.60) X 10*6/uL Hgb 12.1 L (13.0-17.0) d/dL Hct 37.5 L (39.6-50.0) % MPV 9.3 L (9.5-12.2) FL Neutrophils # 7.81 H (1.80-7.70) X 10*3/uL Monocytes # 1.47 H (0.20-1.00) X 10*3/uL Glucose 129 H (70-110) mg/dL Assessment and Plan Assessment: Status post left shoulder total arthroplasty. Postoperative day 1 Hypertension. Chronic low back pain Obesity with a BMI 37.0 BPH GERD Prior history of smoking DVT prophylaxis Plan: Patient will be continued on pain management, bowel regimen and encourage incentive spirometry. Continue with atenolol 25 mg every morning and started back on hydrochlorothiazide Continue with Flomax and Proscar. CBC tomorrow.Monitor H&H. We will continue to follow and further recommendations based on the clinical course.
[2023-08-13] MEDS: LACTATED RINGERS 1,000 ML IV SCH ×3 (01:26→12:47)
[2023-08-13] MEDS: oxyCODONE-APAP 10-325MG 1 EACH TAB PO PRN ×3 (04:02→14:40)
[2023-08-13] MEDS: HYDROmorphone 1 MG/ML 1 ML SYRINGE IVP PRN (04:55)
[2023-08-13] MEDS: FINASTERIDE 5 MG TAB PO SCH (09:10)
[2023-08-13] MEDS: atenoloL 25 MG TAB PO SCH (09:10)
[2023-08-13] MEDS: oxyCODONE ER 20 MG TAB.ER.12H PO SCH (09:10)
[2023-08-13] MEDS: TAMSULOSIN 0.4 MG CAP.ER.24H PO SCH (09:10)
[2023-08-13] MEDS: hydroCHLOROthiazide 25 MG TAB PO SCH (09:10)
--- NOTE | 2023-08-13 09:26 | P.DS ---
Providers Expected date of discharge: 08/13/23 Attending physician: oSto Mejias Consults: 08/11/23 09:14 Consult Physician Routine Consulting Provider: Holly Webb Consult Reason/Comments: post op medical management Do you want consulting provider notified?: Yes Primary care physician: Stated None - Discharge Diagnosis(es) (1) Osteoarthritis of left shoulder Current Visit: Yes Status: Acute (2) S/p reverse total shoulder arthroplasty Current Visit: Yes Status: Acute Hospital Course: This is a 68-year-old male with known history of degenerative arthritis of the left shoulder. The patient presented for evaluation as an outpatient. After discussion and consideration patient elects to proceed with reverse total shoulder arthroplasty. The patient is seen preoperatively by Dr. Mejias and medically cleared for surgery by their primary care physician. Patient is admitted to the [facility] on 08/11/2023 for reverse total shoulder arthroplasty. The procedure is performed without complication or sequelae. The patient is doing well postoperatively. Labs and vital signs are stable on day of discharge. On day of discharge the patient's shoulder incision is healing well. There is minimal erythema. There is no drainage noted at this time. There is minimal soft tissue swelling to the shoulder. Patient has full hand and wrist motion without difficulty or pain. Neurovascular status to the left upper extremity is intact. Patient is discharged home in good condition. Please see med rec for accurate list of home medications. Plan - Discharge Summary Discharge Rx Participant: No New Discharge Prescriptions: New Doxycycline Hyclate 100 mg PO BID 5 Days #10 tab oxyCODONE ER [OxyCONTIN] 20 mg PO Q12HR PRN #14 tab PRN Reason: Pain oxyCODONE-APAP 10-325MG [Percocet 10-325 mg] 1 tab PO Q4HR PRN #42 tab PRN Reason: Pain Docusate [Colace] 100 mg PO BID #60 capsule No Action fentaNYL 100MCG/HR PATCH [Duragesic 100MCG/HR] 100 mcg TRANSDERM Q48H oxyCODONE HCL [oxyCODONE HCL (IR)] 30 mg PO Q4H PRN PRN Reason: Breakthrough Pain atenoloL [Tenormin] 25 mg PO QAM hydroCHLOROthiazide [Hydrodiuril] 25 mg PO DAILY Finasteride [Proscar] 5 mg PO QAM Testosterone [Androgel 1% Gel Pump] 1 applic TOPICAL DAILY Tamsulosin HCl [Flomax] 0.4 mg PO QAM Discharge Medication List atenoloL [Tenormin] 25 mg PO QAM 02/02/16 [History] fentaNYL 100MCG/HR PATCH [Duragesic 100MCG/HR] 100 mcg TRANSDERM Q48H 02/02/16 [History] oxyCODONE HCL [oxyCODONE HCL (IR)] 30 mg PO Q4H PRN 02/02/16 [History] Finasteride [Proscar] 5 mg PO QAM 10/13/19 [History] Testosterone [Androgel 1% Gel Pump] 1 applic TOPICAL DAILY 10/13/19 [History] hydroCHLOROthiazide [Hydrodiuril] 25 mg PO DAILY 10/13/19 [History] Tamsulosin HCl [Flomax] 0.4 mg PO QAM 08/09/23 [History] Docusate [Colace] 100 mg PO BID #60 capsule 08/13/23 [Rx] Doxycycline Hyclate 100 mg PO BID 5 Days #10 tab 08/13/23 [Rx] oxyCODONE ER [OxyCONTIN] 20 mg PO Q12HR PRN #14 tab 08/13/23 [Rx] oxyCODONE-APAP 10-325MG [Percocet 10-325 mg] 1 tab PO Q4HR PRN #42 tab 08/13/23 [Rx] Follow up Appointment(s)/Referral(s): Soto Mejias MD [STAFF PHYSICIAN] - 10 Days Activity/Diet/Wound Care/Special Instructions: Non Weight Bearing Maintain sling May shower after 3 days if no bleeding Keep wound clean and dry Take meds as directed F/U with Dr. Mejias in office Discharge Disposition: HOME WITH HOME HEALTH SERVICES
[2023-08-13 11:26] LABS: HCT 36.5 % (39.6-50.0); HGB 11.7 d/dL (13.0-17.0); MCH 27.6 pg (27.0-32.0); MCHC 32.1 d/dL (32.0-37.0); MCV 86.1 FL (80.0-97.0); Mean Platelet Volume 9.3 FL (9.5-12.2); NRBC Per 100 WBC 0 X 10*3/uL (0.00-0.01); Platelet Count 238 X 10*3/uL (140-440); RBC 4.24 X 10*6/uL (4.40-5.60)
[2023-08-13 13:17] VITALS: BP 120/79; PULSE 73; RESP 15; TEMP 98.5
== END 2023-08-13 16:13 | disposition home health service (06) ==
LOC: OR 05:39 → 4SSUR 09:22 → OR 08-13 16:13
PROVIDERS: ATTEND Orthopaedic Surgery Sports Medicine
DX: M19.019 Primary osteoarthritis, unspecified shoulder (principal); M19.012 Primary osteoarthritis, left shoulder; K21.9 Gastro-esophageal reflux disease without esophagitis; I10 Essential (primary) hypertension; Z87.891 Personal history of nicotine dependence; Z79.899 Other long term (current) drug therapy; Z88.8 Allergy status to other drugs, medicaments and biological substances
CPT/HCPCS: 64415; 80048; 85025; 85027; 73020; 23472; C1776; S0138 ×2; J2250; J3370; J1100; J0690 ×3; J2405; J3010; J1170 ×3

== ENCOUNTER → 2023-11-03 | Outpatient (CLI) | payer MEDICARE ==
[2023-11-03 14:38] VITALS: BP 124/58; PULSE 72; RESP 15; TEMP 97.9
--- NOTE | 2023-11-03 15:39 | P.PAINPG ---
PQRS Measure Charge Sheet Comment: A 68 yr old male w at side with a history of severe and chronic mid back pain secondary to thoracic DDD and spondylosis with facet arthropathy without myelopathy presents today for evaluation. Pt states he experienced 80% pain relief from last BL RFA of the T11-T12, T12-L1 from Feb 2023. Pain level is at 6/10 in intensity, predominantly axial, localized in the lower thoracic spine, sharp/ throbbing in character without radiation of pain. Pain is provoked by frequent bending. Pain is alleviated with injections, PT integrated w massage x 6 wks in Feb 2022, medications, topical, repositioning and rest. Oswestry axial pain score of 28. Interventional pain procedures completed include BL RFA T11-L1 (Feb 2023) Patient is currently on Oxycodone, Fentanyl patches Patient denies any side effects of the medication(s), denies excessive drowsiness or sleepiness, denies suicidal ideation and reports that the current pain medication is helping to control the pain and improve activities of daily living. Patient denies any motor or sensory deficits. Patient denies any fever or night sweats, denies any change in the bowel movements or urination. Physical Examination: -Constitutional: Cooperative. Not in acute distress . - Neurologic: Cranial nerve II to XII intact. No focal neurological deficits. - Psychatric: Alert & oriented x 3. Matching mood & appropriate affect. Judgment and insight intact. - Musculoskeletal: Cervical spine: Muscle bulk/ tone/ strength in the bilateral upper extremities normal Vertebral body tenderness to palpation over Spurling test positive Distraction test positive Facet loading test positive TTP Thoracic spine Muscle bulk / tone/ strength in the bilateral paraspinal muscles normal Vertebral body tender to palpation over Facet loading test positive over BL T11-T12, T12-L1 Lumbar spine: Motor bulk/ tone/ strength lower extremities , thigh and legs : 5/5 Deep tendon reflexes : Normal Knee Jerk. Normal Ankle Jerk . Vertebral body tenderness to palpation over Lumbar Facet Loading Test positive Straight Leg Raise: positive at 30 degrees right side/ left side Gaenslen's Test positive Sacral spine : Severe tenderness over the Sacroiliac joint: right side / left side Range of motion: Flexion of the lumbar spine <60 degrees Range of motion: Extension of the lumbar spine <20 degrees Gaenslen's Test positive right side / left side Kareen test: positive right side / left side Thigh Thrust Test positive right side / left side Sacral Thrust Test positive right side / left side Assessment and plan: Chronic mid back pain secondary to thoracic DDD, spondylosis with facet arthropathy without myelopathy Recommendation of BL RFA T11-T12, T12-L1. Pt exhibited substantial pain relief w prior BL RFA of the T11-T12, T12-L1 in Feb 2023, risks, benefits of procedure discussed and patient verbalized understanding. Protocol for discontinuation/continuation of medications surrounding procedure discussed. All questions answered. I have spent less than 30 minutes on patient care today. Dr Pedraza was available by phone for the evaluation of this patient. The time was used to review the medical records including relevant urine studies and Prescription history (MAPs), review of the available imaging, evaluation and examination of the patient, coordination of care with the medical staff and if applicable referring physicians, as well as creation of the medical record PQRS Narrative: Smoking Status Former smoker Hx Alcohol Use (MH) No Home Medications: Ambulatory Orders atenoloL [Tenormin] 25 mg PO QAM 02/02/16 fentaNYL 100MCG/HR PATCH [Duragesic 100MCG/HR] 100 mcg TRANSDERM Q48H 02/02/16 Finasteride [Proscar] 5 mg PO QAM 10/13/19 Testosterone [Androgel 1% Gel Pump] 1 applic TOPICAL DAILY 10/13/19 hydroCHLOROthiazide [Hydrodiuril] 25 mg PO DAILY 10/13/19 Tamsulosin HCl [Flomax] 0.4 mg PO QAM 08/09/23 Docusate [Colace] 100 mg PO BID #60 capsule 08/13/23 Doxycycline Hyclate 100 mg PO BID #10 tab 08/13/23 oxyCODONE ER [OxyCONTIN] 20 mg PO Q12HR #14 tab 08/13/23 oxyCODONE-APAP 10-325MG [Percocet 10-325 mg] 1 tab PO Q4HR PRN #42 tab 08/13/23 Controlled Substance Measures - Controlled Substance Measures Is patient prescribed a controlled substance at discharge?: No
== END ==
LOC: PNWHC3 13:13
PROVIDERS: ATTEND Specialist
DX: M51.34 Other intervertebral disc degeneration, thoracic region (principal); M47.814 Spondylosis without myelopathy or radiculopathy, thoracic region; Z91.013 Allergy to seafood; Z88.3 Allergy status to other anti-infective agents; Z87.891 Personal history of nicotine dependence
CPT/HCPCS: 99211

== ENCOUNTER 2023-12-01 10:09 | Day surgery (SDC) | payer MEDICARE ==
[~2023-12-01 10:09] MED LIST changes: -ACETAMINOPHEN TAB 500 MG TAB PO PRN; -DEXAMETHASONE SOD PHOSPHATE 4 MG/ML 1 ML VIAL IV ONE; -GABAPENTIN 300 MG CAP PO PRN; -HYDROmorphone 0.5 MG/0.5 ML SYRINGE IVP PRN; +LACTATED RINGERS 1,000 ML IV SCH; -MELOXICAM 7.5 MG TAB PO PRN; -ONDANSETRON 4 MG/2 ML VIAL IVP ONE; -ONDANSETRON 4 MG/2 ML VIAL IVP PRN; -TRANEXAMIC 1,000 MG/100ML-NACL 1,000 MG in SALINE 1 100ML.BAG IVPB PRN
[2023-12-01] MEDS ORDERED: fentaNYL (PF) 50 MCG/ML 2 ML AMP ONE (10:20)
[2023-12-01] MEDS ORDERED: ROPIVACAINE 5MG/ML 20ML VIAL ONE (10:20)
[2023-12-01] MEDS ORDERED: MIDAZOLAM 2 MG/2 ML VIAL ONE (10:20)
[2023-12-01 10:40] VITALS: RESP 16; TEMP 98.4
--- NOTE | 2023-12-01 11:09 | P.PCN ---
Date of Procedure: 12/01/23 Description of Procedure: PREOPERATIVE DIAGNOSIS: Thoracic and Lumbar Facet Arthropathy without myelopathy POSTOPERATIVE DIAGNOSIS: Same PROCEDURES: Bilateral Radiofrequency thermocoagulation of T11/T12/L1 medial branches, with fluoroscopic guidance ANESTHESIA: Medication Administered by: Nurse Sedation Type: Moderate sedation Sedation Supervision start time: 1050 Sedation Supervision end time: 1107 Imaging: Fluoroscopy was used, images where saved to the medical record PROCEDURE INDICATION: The patient with low back pain secondary to lumbar facet arthropathy who had more than 50% relief of pain with previous diagnostic lumbar medial branch block with local anesthetic. PROCEDURE DESCRIPTION / TECHNIQUE: The patient was seen and identified in the preoperative area. Risks, benefits, complications, including but not limited to risk of infection, bleeding, allergic reactions to the medications and no comp lete pain relief, and alternatives were discussed with the patient, the patient agreed to proceed with the procedure and signed the consent. IV was started. Vital signs remained stable throughout the procedure. Patient was taken to the OR and time out was completed. The patient was placed in the prone position on the procedure table. The lumber area was prepped and draped in the usual sterile fashion. Vital signs were closely monitored during the procedure. IV sedation was used during the procedure to decrease patient anxiety. Using AP and then oblique fluoroscopy, the needles were placed on the lateral portion of the pedicles of the thoracic vertebral bodies bilaterally, along with the eye of the Diego dog on the L1 vertebral body. Subsequently, a 20 [id number] radiofrequency cannula with a 10-mm active tip was advanced guided by fluoroscopy to the junction of the pedicle and transverse process of each identified level. Each site then underwent sensory testing at 50 Hz and 0 to 1 volt and motor testing at 2.5 Hz and 0 to 3 volt with local stimulation, no radicular symptoms sensed by the patient and no obvious motor stimulation noted. Thereafter the tested sites underwent radiofrequency thermocoagulation at 80 degrees celsius for 90 seconds after injecting 1 ml of PF lidocaine 1%. Then after the thermocoagulation was done, 1 ml of the block solution containing ro pivaciane 0.5% was injected at the lesioned sites after negative aspiration of CSF and blood and with no paresthesias. Cannulas were retracted. At the end of the procedure, the skin was cleansed and bandages were applied. COMPLICATIONS: No acute complications. DISPOSITION / PLANS: The patient was placed in a supine position and transferred to the recovery area in a stable condition for observation and was discharged from the recovery room after meeting discharge criteria. Home discharge instructions given to the patient by the staff. The patient was reexamined prior to discharge. Patient will follow up as directed.
[2023-12-01] MEDS ORDERED: IV FLUID CONTINUATION 650 ML IV ONE (11:15)
[2023-12-01 12:15] VITALS: BP 104/62; PULSE 76
--- NOTE | 2023-12-01 12:53 | FL ---
EXAMINATION TYPE: FL guided pain mgmt statistic Intraoperative/procedural fluoroscopic services were provided. Total fluoroscopy time is 5 seconds with a total of 3 submitted images to PACS. Please see the operative/procedural note for further details. DAP: [id number] mGym2 Gycm2
== END 2023-12-01 12:20 | disposition home or self-care (01) ==
LOC: ORPAIN 10:09
PROVIDERS: ATTEND Hospitalist
DX: M47.816 Spondylosis without myelopathy or radiculopathy, lumbar region (principal); M47.814 Spondylosis without myelopathy or radiculopathy, thoracic region
CPT/HCPCS: 99152; 64633; 64634 ×2; J2250; J3010; J2795

== ENCOUNTER → 2024-02-29 | Outpatient (CLI) | payer MEDICARE ==
[2024-02-29 13:14] VITALS: BP 123/65; PULSE 60; RESP 16; TEMP 98.5
--- NOTE | 2024-02-29 14:27 | P.PAINPG ---
PQRS Measure Charge Sheet Comment: A 68 yr old male with a history of severe and chronic LBP x 30 yrs secondary to L3-4/ L4-5 post laminectomy syndrome, thoracic DDD, spondylosis with facet arthropathy without myelopathy presents today for evaluation. Pain level is at 7 /10 in intensity, predominantly axial, localized in the lower thoracic spine, sharp/ throbbing in character without radiation of pain. Pain is provoked by frequent bending. Pain is alleviated with injections, PT integrated w massage x 6 wks in Feb 2022, medications, topical, repositioning and rest. Oswestry axial pain score of 27. Interventional pain procedures completed include BL RFA T11-L1 (Feb 2023, Nov 2023) Patient is currently on Oxycodone, Fentanyl patches Patient denies any side effects of the medication(s), denies excessive drowsiness or sleepiness, denies suicidal ideation and reports that the current pain medication is helping to control the pain and improve activities of daily living. Patient denies any motor or sensory deficits. Patient denies any fever or night sweats, denies any change in the bowel movements or urination. Physical Examination: -Constitutional: Cooperative. Not in acute distress . - Neurologic: Cranial nerve II to XII intact. No focal neurological deficits. - Psychatric: Alert & oriented x 3. Matching mood & appropriate affect. Judgment and insight intact. - Musculoskeletal: Cervical spine: Muscle bulk/ tone/ strength in the bilateral upper extremities normal Vertebral body tenderness to palpation over Spurling test positive Distraction test positive Facet loading test positive TTP Thoracic spine Muscle bulk / tone/ strength in the bilateral paraspinal muscles normal Vertebral body tender to palpation over Facet loading test positive Lumbar spine: +Vertical incisional scar intact Motor bulk/ tone/ strength lower extremities , thigh and legs : 5/5 Deep tendon reflexes : Normal Knee Jerk. Normal Ankle Jerk . Vertebral body tenderness to palpation over L3 Snow test positive L3-L4 Lumbar Facet Loading Test positive Straight Leg Raise: positive at 30 degrees right side/ left side Gaenslen's Test positive Sacral spine : Severe tenderness over the Sacroiliac joint: right side / left side Range of motion: Flexion of the lumbar spine <60 degrees Range of motion: Extension of the lumbar spine <20 degrees Gaenslen's Test positive right side / left side Kareen test: positive right side / left side Thigh Thrust Test positive right side / left side Sacral Thrust Test positive right side / left side Imaging: MRI non contrast of the lumbar spine from March 2022 reviewed Assessment and plan: Chronic mid back and LBP secondary to L3-4/ L4-5 post laminectomy syndrome, thoracic DDD, spondylosis with facet arthropathy without myelopathy Recommendation of BL TFESI L3-L4 #1. Risks, benefits of procedure discussed and patient verbalized understanding. Protocol for discontinuation/continuation of medications surrounding procedure discussed. All questions answered. I have spent less than 30 minutes on patient care today. Dr Pedraza was available by phone for the evaluation of this patient. The time was used to review the medical records including relevant urine studies and Prescription history (MAPs), review of the available imaging, evaluation and examination of the patient, coordination of care with the medical staff and if applicable referring physicians, as well as creation of the medical record PQRS Narrative: Smoking Status Former smoker Hx Alcohol Use (MH) No Home Medications: Ambulatory Orders atenoloL [Tenormin] 25 mg PO QAM 02/02/16 fentaNYL 100MCG/HR PATCH [Duragesic 100MCG/HR] 100 mcg TRANSDERM Q48H 02/02/16 Finasteride [Proscar] 5 mg PO QAM 10/13/19 hydroCHLOROthiazide [Hydrodiuril] 25 mg PO QAM 10/13/19 Tamsulosin HCl [Flomax] 0.4 mg PO QAM 08/09/23 oxyCODONE HCL [oxyCODONE HCL (IR)] 30 mg PO Q6H 11/25/23 Controlled Substance Measures - Controlled Substance Measures Is patient prescribed a controlled substance at discharge?: No
== END ==
LOC: PNWHC3 12:02
PROVIDERS: ATTEND Specialist
DX: M96.1 Postlaminectomy syndrome, not elsewhere classified (principal); G89.29 Other chronic pain; M51.34 Other intervertebral disc degeneration, thoracic region; M47.814 Spondylosis without myelopathy or radiculopathy, thoracic region; M51.36 Other intervertebral disc degeneration, lumbar region; M47.816 Spondylosis without myelopathy or radiculopathy, lumbar region; Z87.891 Personal history of nicotine dependence; Z88.8 Allergy status to other drugs, medicaments and biological substances; Z91.013 Allergy to seafood
CPT/HCPCS: 99211

== ENCOUNTER → 2024-09-19 | Outpatient (CLI) | payer MEDICARE ==
[2024-09-19 14:10] VITALS: BP 121/80; PULSE 71; RESP 19; TEMP 97.8
--- NOTE | 2024-09-19 14:43 | P.PAINPG ---
Objective - Vital Signs Vital signs: Vital Signs Temp 97.8 F 09/19/24 14:08 Pulse 71 09/19/24 14:08 Resp 19 09/19/24 14:08 BP 121/80 09/19/24 14:08 Pulse Ox 94 L 09/19/24 14:08 FiO2 Intake & Output 09/18/24 09/19/24 09/19/24 18:59 06:59 18:59 Weight 245 kg PQRS Measure Charge Sheet Mode of Arrival: Ambulatory Comment: A 69 yr old male w at side with a history of severe and chronic LBP x 30 yrs secondary to L3-4/ L4-5 post laminectomy syndrome, thoracic radiculopathy, spondylosis with facet arthropathy without myelopathy presents today for evaluation. Pain level is at 7 /10 in intensity, predominantly axial, localized in the lower thoracic spine, sore in character without radiation of pain. Pain is provoked by frequent bending. Pain is alleviated with injections, PT integrated w massage x 6 wks in Feb 2022, medications, topical, repositioning and rest. Interventional pain procedures completed include BL RFA T11-L1 x2 (Feb 2023, Nov 2023) Patient is currently on Oxycodone 30mg #120, Fentanyl 100mcg/hr #10 Patient denies any side effects of the medication(s), denies excessive drowsiness or sleepiness, denies suicidal ideation and reports that the current pain medication is helping to control the pain and improve activities of daily living. Patient denies any motor or sensory deficits. Patient denies any fever or night sweats, denies any change in the bowel movements or urination. Physical Examination: -Constitutional: Cooperative. Not in acute distress . - Neurologic: Cranial nerve II to XII intact. No focal neurological deficits. - Psychatric: Alert & oriented x 3. Matching mood & appropriate affect. Judgment and insight intact. - Musculoskeletal: Cervical spine: Muscle bulk/ tone/ strength in the bilateral upper extremities normal Vertebral body tenderness to palpation over Spurling test positive Distraction test positive Facet loading test positive TTP T11- T12, T12-L1 Thoracic spine Muscle bulk / tone/ strength in the bilateral paraspinal muscles normal Vertebral body tender to palpation over Facet loading test positive Lumbar spine: +Vertical incisional scar intact Motor bulk/ tone/ strength lower extremities , thigh and legs : 5/5 Deep tendon reflexes : Normal Knee Jerk. Normal Ankle Jerk . Vertebral body tenderness to palpation over L3 Snow test positive L3-L4 Lumbar Facet Loading Test positive Straight Leg Raise: positive at 30 degrees right side/ left side Gaenslen's Test positive Sacral spine : Severe tenderness over the Sacroiliac joint: right side / left side Range of motion: Flexion of the lumbar spine <60 degrees Range of motion: Extension of the lumbar spine <20 degrees Gaenslen's Test positive right side / left side Kareen test: positive right side / left side Thigh Thrust Test positive right side / left side Sacral Thrust Test positive right side / left side Imaging: MRI non contrast of the lumbar spine from March 2022 reviewed Assessment and plan: Chronic mid back and LBP secondary to L3-4/ L4-5 post laminectomy syndrome, thoracic radiculopathy, spondylosis with facet arthropathy without myelopathy. Recommendation of thoracic x ray M54.14. Risks, benefits of procedure discussed and patient verbalized understanding. Protocol for discontinuation/continuation of medications surrounding procedure discussed. All questions answered. I have spent less than 30 minutes on patient care today. Dr Pedraza was available by phone for the evaluation of this patient. The time was used to review the medical records including relevant urine studies and Prescription history (MAPs), review of the available imaging, evaluation and examination of the patient, coordination of care with the medical staff and if applicable referring physicians, as well as creation of the medical record - Pain Location Lower Back Pharmacological Interventions: PRN Medication PQRS Narrative: Smoking Status Former smoker Narcotic Agreement Date Signed 09/19/24 Blood Pressure 121/80 Pain Intensity [Lower Back] 5 Scale Used Numeric (1 - 10) Hx Alcohol Use (MH) No Home Medications: Ambulatory Orders atenoloL [Tenormin] 25 mg PO QAM 02/02/16 fentaNYL 100MCG/HR PATCH [Duragesic 100MCG/HR] 100 mcg TRANSDERM Q48H 02/02/16 Finasteride [Proscar] 5 mg PO QAM 10/13/19 hydroCHLOROthiazide [Hydrodiuril] 25 mg PO QAM 10/13/19 Tamsulosin HCl [Flomax] 0.4 mg PO QAM 08/09/23 oxyCODONE HCL [oxyCODONE HCL (IR)] 30 mg PO Q6H 11/25/23 Controlled Substance Measures - Controlled Substance Measures Is patient prescribed a controlled substance at discharge?: No
== END ==
LOC: PNWHC3 13:56
PROVIDERS: ATTEND Specialist
CPT/HCPCS: 99211

== ENCOUNTER → 2024-09-19 | Outpatient (CLI) | payer MEDICARE ==
--- NOTE | 2024-09-19 17:54 | XR ---
EXAMINATION TYPE: XR thoracic spine 3V DATE OF EXAM: 09/19/2024 COMPARISON: NONE HISTORY: 69-year-old male, thoracic spine pain, mid back pain. FINDINGS: Lap band device is present. There is DISH mid and lower thoracic spine with moderate to sev ere degenerative disc disease throughout. Degenerative grade 1 anterolisthesis probably T3-T4. Verteb ral body heights are preserved. IMPRESSION: 1. DISH mid and lower thoracic spine. 2. Moderate to severe multilevel degenerative disc disease. 3. Degenerative grade 1 anterolisthesis upper thoracic spine, likely T3-T4. 4. No vertebral compression collapse. [facility], , 09/19/2024 5:51 PM
== END | disposition home or self-care (01) ==
LOC: RADXRMAIN 14:42
PROVIDERS: ATTEND Physician Assistant Medical
CPT/HCPCS: 72070

== ENCOUNTER → 2025-03-28 | Outpatient (CLI) | payer MEDICARE ==
[2025-03-28 13:16] VITALS: TEMP 95.9
[2025-03-28 13:18] VITALS: BP 126/77; PULSE 83; RESP 19
--- NOTE | 2025-03-28 14:31 | XR ---
EXAMINATION TYPE: XR lumbar spine 2 or 3V DATE OF EXAM: 03/28/2025 2:23 PM COMPARISON: None. CLINICAL INDICATION: Male, 70 years old with history of M54.16, TECHNIQUE: Frontal, lateral, and oblique images of the lumbar spine are obtained. FINDINGS: There are 5 lumbar type vertebral bodies identified. Vertebral body heights are within n ormal limits. Severe multilevel degenerative disc disease. Grade 1 anterolisthesis L4 and L5 measurin g 9 mm. Severe facet joint arthropathy with bilateral spondylolysis at this level. The overlying soft tissue appears unremarkable. IMPRESSION: Advanced degenerative changes as discussed. [facility], , 03/28/2025 2:29 PM
--- NOTE | 2025-03-28 15:26 | P.PAINPG ---
Objective - Vital Signs Vital signs: Intake & Output 03/27/25 03/28/25 03/28/25 18:59 06:59 18:59 Weight 108.862 kg PQRS Measure Charge Sheet Comment: A 70 yr old male with a history of severe and chronic LBP x 30 yrs secondary to L3-4/ L4-5 post laminectomy syndrome, thoracic radiculopathy, spondylosis with facet arthropathy without myelopathy presents today for evaluation. Pain level is at 2-10 /10 in intensity, predominantly axial, localized in the lumbar spine, sore in character without radiation of pain. Pain is provoked by frequent bending. Pain is alleviated with injections, PT integrated w massage (thoracic, lumbar) x 6 wks in Feb 2022, physician guided stretches daily since Feb 2022, medications, topical, repositioning and rest. Interventional pain procedures completed include BL RFA T11-L1 x2 (Feb 2023, Nov 2023) Patient is currently on Oxycodone 30mg #120, Fentanyl 100mcg/hr #10 Patient denies any side effects of the medication(s), denies excessive drowsiness or sleepiness, denies suicidal ideation and reports that the current pain medication is helping to control the pain and improve activities of daily living. Patient denies any motor or sensory deficits. Patient denies any fever or night sweats, denies any change in the bowel movements or urination. Physical Examination: -Constitutional: Cooperative. Not in acute distress . - Neurologic: Cranial nerve II to XII intact. No focal neurological deficits. - Psychatric: Alert & oriented x 3. Matching mood & appropriate affect. Judgment and insight intact. - Musculoskeletal: Cervical spine: Muscle bulk/ tone/ strength in the bilateral upper extremities normal Vertebral body tenderness to palpation over Spurling test positive Distraction test positive Facet loading test positive TTP T11- T12, T12-L1 Thoracic spine Muscle bulk / tone/ strength in the bilateral paraspinal muscles normal Vertebral body tender to palpation over Facet loading test positive Lumbar spine: +Vertical incisional scar intact Motor bulk/ tone/ strength lower extremities , thigh and legs : 5/5 Deep tendon reflexes : Normal Knee Jerk. Normal Ankle Jerk . Vertebral body tenderness to palpation over L3 Snow test positive L3-L4 Lumbar Facet Loading Test positive Straight Leg Raise: positive at 30 degrees right side/ left side Gaenslen's Test positive Sacral spine : Severe tenderness over the Sacroiliac joint: right side / left side Range of motion: Flexion of the lumbar spine <60 degrees Range of motion: Extension of the lumbar spine <20 degrees Gaenslen's Test positive right side / left side Kareen test: positive right side / left side Thigh Thrust Test positive right side / left side Sacral Thrust Test positive right side / left side Imaging: MRI non contrast of the lumbar spine from March 2022 reviewed MRI non contrast of the thoracic spine from 03/15/25 reviewed Assessment and plan: Chronic thoracolumbar pain secondary to multilevel thoracic radiculopathy, L3-4/ L4-5 post laminectomy syndrome, spondylosis with facet arthropathy without myelopathy. Recommendation of lumbar x ray M54.16. HEP documentation provided to supplement pt's current physician guided home exercise plan. All questions answered. I have spent less than 30 minutes on patient care today. Dr Pedraza was avail able by phone for the evaluation of this patient. The time was used to review the medical records including relevant urine studies and Prescription history (MAPs), review of the available imaging, evaluation and examination of the patient, coordination of care with the medical staff and if applicable referring physicians, as well as creation of the medical record PQRS Narrative: Smoking Status Former smoker Narcotic Agreement Date Signed 09/19/24 Hx Alcohol Use (MH) No Home Medications: Ambulatory Orders atenoloL [Tenormin] 25 mg PO QAM 02/02/16 fentaNYL 100MCG/HR PATCH [Duragesic 100MCG/HR] 100 mcg TRANSDERM Q48H 02/02/16 Finasteride [Proscar] 5 mg PO QAM 10/13/19 hydroCHLOROthiazide [Hydrodiuril] 25 mg PO QAM 10/13/19 Tamsulosin HCl [Flomax] 0.4 mg PO QAM 08/09/23 oxyCODONE HCL [oxyCODONE HCL (IR)] 30 mg PO Q6H 11/25/23 Controlled Substance Measures - Controlled Substance Measures Is patient prescribed a controlled substance at discharge?: No
== END ==
LOC: PNWHC3 13:02
PROVIDERS: ATTEND Specialist
DX: M47.24 Other spondylosis with radiculopathy, thoracic region (principal); M96.1 Postlaminectomy syndrome, not elsewhere classified; M54.6 Pain in thoracic spine; M54.50 Low back pain, unspecified; Z87.891 Personal history of nicotine dependence; Z88.8 Allergy status to other drugs, medicaments and biological substances; Z91.013 Allergy to seafood
CPT/HCPCS: 72100; 99211

== ENCOUNTER → 2025-06-03 | Outpatient (CLI) | payer MEDICARE ==
[2025-06-03 13:19] VITALS: BP 133/71; PULSE 69; RESP 16; TEMP 97.2
--- NOTE | 2025-06-03 14:39 | P.PAINPG ---
PQRS Measure Charge Sheet Comment: A 70 yr old male with a history of severe and chronic LBP x 30 yrs secondary to L3-4/ L4-5 post laminectomy syndrome, thoracic radiculopathy, spondylosis with facet arthropathy without myelopathy presents today for evaluation. Pain level is at 2-8 /10 in intensity, predominantly axial, localized in the lumbar spine, sore in character w radiation of pain to the buttocks, hips and LEs. Pain is provoked by frequent bending. Pain is alleviated with injections, PT integrated w massage (thoracic, lumbar) x 6 wks in Feb 2022, physician guided stretches daily since 03/28/25, medications, topical, repositioning and rest. Interventional pain procedures completed include BL RFA T11-L1 x2 (Feb 2023, Nov 2023) Patient is currently on Oxycodone 30mg #120, Fentanyl 100mcg/hr #10 Patient denies any side effects of the medication(s), denies excessive drowsiness or sleepiness, denies suicidal ideation and reports that the current pain medication is helping to control the pain and improve activities of daily living. Patient denies any motor or sensory deficits. Patient denies any fever or night sweats, denies any change in the bowel movements or urination. Physical Examination: -Constitutional: Cooperative. Not in acute distress . - Neurologic: Cranial nerve II to XII intact. No focal neurological deficits . - Psychatric: Alert & oriented x 3. Matching mood & appropriate affect. Judgment and insight intact. - Musculoskeletal: Cervical spine: Muscle bulk/ tone/ strength in the bilateral upper extremities normal Vertebral body tenderness to palpation over Spurling test positive Distraction test positive Facet loading test positive TTP T11- T12, T12-L1 Thoracic spine Muscle bulk / tone/ strength in the bilateral paraspinal muscles normal Vertebral body tender to palpation over Facet loading test positive Lumbar spine: +Vertical incisional scar intact Motor bulk/ tone/ strength lower extremities , thigh and legs : 5/5 Deep tendon reflexes : Normal Knee Jerk. Normal Ankle Jerk . Vertebral body tenderness to palpation over L4 Snow test positive Lumbar Facet Loading Test positive Straight Leg Raise: positive at 30 degrees right side/ left side Gaenslen's Test positive Sacral spine : Severe tenderness over the Sacroiliac joint: right side / left side Range of motion: Flexion of the lumbar spine <60 degrees Range of motion: Extension of the lumbar spine <20 degrees Gaenslen's Test positive right side / left side Kareen test: positive right side / left side Thigh Thrust Test positive right side / left side Sacral Thrust Test positive right side / left side Imaging: MRI non contrast of the lumbar spine from 04/05/25 reviewed MRI non contrast of the thoracic spine from 03/15/25 reviewed Assessment and plan: Chronic thoracolumbar pain secondary to multilevel thoracic radiculopathy, L3-L4-L5-S1 post-op laminectomy syndrome, spondylosis with facet arthropathy without myelopathy. Recommendation of BL TFESI L4-L5 #1. Risks, benefits of procedure discussed and pt verbalized understanding. Protocol for discontinuation/ continuation of medications logan procedure discussed. All questions answered. I have spent less than 30 minutes on patient care today. Dr Pedraza was available by phone for the evaluation of this patient. The time was used to review the medical records including relevant urine studies and Prescription history (MAPs), review of the available imaging, evaluation and examination of the patient, coordination of care with the medical staff and if applicable referring physicians, as well as creation of the medical record - Pain Location Bilateral Lower Back Non-Pharmacological Interventions: Inactivity, Position/Reposition, Sitting Pharmacological Interventions: PRN Medication, Scheduled Medication PQRS Narrative: Smoking Status Former smoker Narcotic Agreement Date Signed 09/19/24 Hx Alcohol Use (MH) No Home Medications: Ambulatory Orders atenoloL [Tenormin] 25 mg PO QAM 02/02/16 fentaNYL 100MCG/HR PATCH [Duragesic 100MCG/HR] 100 mcg TRANSDERM Q48H 02/02/16 Finasteride [Proscar] 5 mg PO QAM 10/13/19 hydroCHLOROthiazide [Hydrodiuril] 25 mg PO QAM 10/13/19 Tamsulosin HCl [Flomax] 0.4 mg PO QAM 08/09/23 oxyCODONE HCL [oxyCODONE HCL (IR)] 30 mg PO Q6H 11/25/23 Gabapentin [Neurontin] 400 mg PO DAILY 06/03/25 Controlled Substance Measures - Controlled Substance Measures Is patient prescribed a controlled substance at discharge?: Yes When asked, does pt state using other controlled substances?: Yes If prescribed controlled substance>3 days was MAPS reviewed?: Prescribed <3 Days
== END ==
LOC: PNWHC3 12:54
PROVIDERS: ATTEND Specialist
DX: M54.6 Pain in thoracic spine (principal); M54.14 Radiculopathy, thoracic region; M96.1 Postlaminectomy syndrome, not elsewhere classified; G89.29 Other chronic pain; Z88.8 Allergy status to other drugs, medicaments and biological substances; Z91.013 Allergy to seafood; Z87.891 Personal history of nicotine dependence
CPT/HCPCS: 99211